=== PATIENT | female | born 1975 | race African-American/Black ===

== ENCOUNTER 2018-02-02 22:44 | Emergency (ER) | payer BC ==
[2018-02-02] MEDS ORDERED: KETOROLAC 30 MG/ML INJ ONE (23:52)
--- NOTE | 2018-02-03 00:12 | EDPHYS ---
Physician Documentation [facility] Name: Alix Villasenor Age: 42 yrs Sex: Female : 1975 Arrival Date: 02/02/2018 Time: 22:45 Bed 6 Private MD: ED Physician Basilio Mcdonald HPI: 02/02 23:57 This 42 yrs old Black Female presents to ER via Wheelchair with complaints of Knee Pain snw - Swelling. 23:57 The patient presents with pain, swelling, tenderness. The complaints affect the medial snw aspect of right knee. Context: resulted from an unknown cause, the patient can fully bear weight, the patient is able to ambulate, Problem is a result from a previous injury: to foot. Onset: The symptoms/episode began/occurred 1 week(s) ago, and became persistent. Associated signs and symptoms: Pertinent positives: swelling, tenderness. Treatment prior to arrival includes: loyda wrap. Severity of symptoms: At their worst the symptoms were moderate. The patient has not experienced similar symptoms in the past. It is unknown whether or not the patient has recently seen a physician. 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 - Social history:: Smoking status: Patient/guardian denies using tobacco. ROS: 23:57 Constitutional: Negative for fever, chills, and weight loss, Eyes: Negative for injury, snw pain, redness, and discharge, ENT: Negative for injury, pain, and discharge, Neck: Negative for injury, pain, and swelling, Cardiovascular: Negative for chest pain, palpitations, and edema, Respiratory: Negative for shortness of breath, cough, wheezing, and pleuritic chest pain, Abdomen/GI: Negative for abdominal pain, nausea, vomiting, diarrhea, and constipation, Back: Negative for injury and pain, : Negative for injury, bleeding, discharge, and swelling, Skin: Negative for injury, rash, and discoloration, Neuro: Negative for headache, weakness, numbness, tingling, and seizure. 23:57 MS/extremity: Positive for decreased range of motion, swelling, tenderness, of the medial aspect of right knee. Exam: 23:56 Constitutional: This is a well developed, well nourished patient who is awake, alert, snw and in no acute distress. Head/Face: Normocephalic, atraumatic. Eyes: Pupils equal round and reactive to light, extra-ocular motions intact. Lids and lashes normal. Conjunctiva and sclera are non-icteric and not injected. Cornea within normal limits. Periorbital areas with no swelling, redness, or edema. ENT: Nares patent. No nasal discharge, no septal abnormalities noted. Tympanic membranes are normal and external auditory canals are clear. Oropharynx with no redness, swelling, or masses, exudates, or evidence of obstruction, uvula midline. Mucous membranes moist. Neck: Trachea midline, no thyromegaly or masses palpated, and no cervical lymphadenopathy. Supple, full range of motion without nuchal rigidity, or vertebral point tenderness. No Meningismus. Chest/axilla: Normal chest wall appearance and motion. Nontender with no deformity. No lesions are appreciated. Cardiovascular: Regular rate and rhythm with a normal S1 and S2. No gallops, murmurs, or rubs. Normal PMI, no JVD. No pulse deficits. Respiratory: Lungs have equal breath sounds bilaterally, clear to auscultation and percussion. No rales, rhonchi or wheezes noted. No increased work of breathing, no retractions or nasal flaring. Abdomen/GI: Soft, non-tender, with normal bowel sounds. No distension or tympany. No guarding or rebound. No evidence of tenderness throughout. Back: No spinal tenderness. No costovertebral tenderness. Full range of motion. Skin: Warm, dry with normal turgor. Normal color with no rashes, no lesions, and no evidence of cellulitis. Neuro: Awake and alert, GCS 15, oriented to person, place, time, and situation. Cranial nerves II-XII grossly intact. Motor strength 5/5 in all extremities. Sensory grossly intact. Cerebellar exam normal. Normal gait. Psych: Awake, alert, with orientation to person, place and time. Behavior, mood, and affect are within normal limits. 23:56 Musculoskeletal/extremity: Extremities: grossly normal except: noted in the right knee: pain, swelling, tenderness, ROM: limited passive range of motion due to pain, Circulation is intact in all extremities. Sensation intact. DVT Exam: swelling, tenderness, of the right leg, of the medial aspect of right knee. Vital Signs: 23:01 BP 131 / 89; Pulse 78; Resp 16; Temp 98.2(O); Pulse Ox 100% on R/A; Weight 77.11 kg; lp1 Height 5 ft. 6 in. (167.64 cm); Pain 7/10; 02/03 00:15 BP 126 / 83; Pulse 75; Resp 16; Pulse Ox 100% on R/A; Pain 4/10; bs1 02/02 23:01 Body Mass Index 27.44 (77.11 kg, 167.64 cm) lp1 MDM: 02/02 23:00 Patient medically screened. snw 02/03 00:13 Data reviewed: vital signs, nurses notes. Data interpreted: Pulse oximetry: on room air snw is 100 %. Interpretation: normal. Counseling: I had a detailed discussion with the patient and/or guardian regarding: the historical points, exam findings, and any diagnostic results supporting the discharge/admit diagnosis, the presence of at least one elevated blood pressure reading (>120/80) during this emergency department visit, radiology results, the need for outpatient follow up, to return to the emergency department if symptoms worsen or persist or if there are any questions or concerns that arise at home. Special discussion: I have referred the patient to see his PCP for further evaluation of high blood pressure. Based on the history and exam findings, there is no indication for further emergent testing or inpatient evaluation. I discussed with the patient/guardian the need to see the orthopedic surgeon for further evaluation of the symptoms. I discussed with the patient/guardian the need to see the primary care provider for further evaluation of the symptoms. 02/02 23:22 Order name: Knee Right 3 View XRAY snw 02/02 23:22 Order name: US Extremity Venous Uni Ltd snw Administered Medications: 02/02 23:40 Drug: TORadol 60 mg Route: IM; Site: right deltoid; bs1 02/03 00:30 Follow up: Response: No adverse reaction bs1 Disposition: 02/03/18 00:11 Discharged to Home. Impression: Pain in right knee, Synovial cyst of popliteal space [Hernandez], right knee. - Condition is Stable. - Discharge Instructions: Arthralgia, Hernandez Cyst, Knee Pain, Cryotherapy, Heat Therapy. - Prescriptions for Diclofenac Sodium 75 mg Oral Tablet Sustained Release - take 1 tablet by ORAL route 2 times per day; 30 tablet. - Work release form, Medication Reconciliation Form, Thank You Letter, Antibiotic Education, Prescription Opioid Use form. - Follow up: Private Physician; When: 2 - 3 days; Reason: Recheck today's complaints, Continuance of care, Re-evaluation by your physician. Follow up: Emergency Department; When: As needed; Reason: Worsening of condition. Follow up: Tony Santo MD; When: 1 week; Reason: Recheck today's complaints, Continuance of care. Addendum: 02/07/2018 08:33 Co-signature as Attending Physician, Basilio Mcdonald MD. g s Signatures: Dispatcher [employer] EDWA Greer Rosas, ARCHERY EQUIPMENT REPAIRER-C ARCHERY EQUIPMENT REPAIRER-Csnw Sandy Moreno, RN RN lp1 Basilio Mcdonald MD MD Anika Call, RN RN bs1
--- NOTE | 2018-02-03 00:12 | ER ---
Nurse's Notes [facility] Name: Alix Villasenor Age: 42 yrs Sex: Female : 1975 Arrival Date: 02/02/2018 Time: 22:45 Bed 6 Private MD: Diagnosis: Pain in right knee;Synovial cyst of popliteal space [Hernandez], right knee Presentation: 02/02 22:58 Presenting complaint: Patient states: Right knee swelling that began 1 week ago, lp1 increased swelling today;. Transition of care: patient was not received from another setting of care. Onset of symptoms was February 02, 2018. Care prior to arrival: None. 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 - Social history:: Smoking status: Patient/guardian denies using tobacco. Screenin:03 Abuse screen: Denies threats or abuse. Denies injuries from another. Nutritional lp1 screening: No deficits noted. Tuberculosis screening: No symptoms or risk factors identified. Fall Risk None identified. Assessment: 23:10 General: Appears in no apparent distress. uncomfortable, Behavior is calm, cooperative, bs1 appropriate for age. Pain: Complains of pain in right knee Pain does not radiate. Pain currently is 7 out of 10 on a pain scale. Quality of pain is described as aching. Neuro: Level of Consciousness is awake, alert, obeys commands, Oriented to person, place, time, situation, Appropriate for age Finance Specialist are equal bilaterally Moves all extremities. Gait is steady, Speech is normal. Cardiovascular: Denies chest pain, palpitations, shortness of breath, Heart tones S1 S2 present Capillary refill < 3 seconds Patient's skin is warm and dry. Respiratory: Airway is patent Trachea midline Respiratory effort is even, unlabored, Respiratory pattern is regular, symmetrical, Breath sounds are clear bilaterally. GI: No deficits noted. No signs and/or symptoms were reported involving the gastrointestinal system. : No deficits noted. No signs and/or symptoms were reported regarding the genitourinary system. EENT: No deficits noted. No signs and/or symptoms were reported regarding the EENT system. Derm: No deficits noted. No signs and/or symptoms reported regarding the dermatologic system. Musculoskeletal: Circulation, motion, and sensation intact. Capillary refill < 3 seconds, Range of motion: limited in right knee/leg Swelling present in right leg/knee. 02/03 00:10 Reassessment: Patient appears in no apparent distress at this time. No changes from bs1 previously documented assessment. Patient and/or family updated on plan of care and expected duration. Pain level reassessed. Patient is alert, oriented x 3, equal unlabored respirations, skin warm/dry/pink. Vital Signs: 02/02 23:01 BP 131 / 89; Pulse 78; Resp 16; Temp 98.2(O); Pulse Ox 100% on R/A; Weight 77.11 kg; lp1 Height 5 ft. 6 in. (167.64 cm); Pain 7/10; 02/03 00:15 BP 126 / 83; Pulse 75; Resp 16; Pulse Ox 100% on R/A; Pain 4/10; bs1 04 23:01 Body Mass Index 27.44 (77.11 kg, 167.64 cm) lp1 ED Course: 02/02 22:45 Patient arrived in ED. am2 22:58 Triage completed. lp1 23:00 Greer Rosas FNP-C [facility]. snw 23:00 Basilio Mcdonald MD is Attending Physician. snw 23:01 Anika Call RN is Primary Nurse. bs1 23:01 Arm band placed on left wrist. lp1 23:14 Patient has correct armband on for positive identification. Bed in low position. Call bs1 light in reach. Side rails up X 1. Pulse ox on. NIBP on. Warm blanket given. 23:37 X-ray completed. Portable x-ray completed in exam room. Patient tolerated procedure kw well. 23:38 Knee Right 3 View XRAY In Process Unspecified. EDMS 02/03 00:10 Ultrasound completed. Patient tolerated well. cy 00:11 Tony Santo MD is Referral Physician. snw 00:15 US Extremity Venous Uni Ltd In Process Unspecified. EDMS 00:28 No provider procedures requiring assistance completed. Patient did not have IV access bs1 during this emergency room visit. Administered Medications: 02/02 23:40 Drug: TORadol 60 mg Route: IM; Site: right deltoid; bs1 02/03 00:30 Follow up: Response: No adverse reaction bs1 Outcome: 00:11 Discharge ordered by . snw 00:29 Discharged to home ambulatory. bs1 00:29 Condition: stable 00:29 Discharge instructions given to patient, Instructed on discharge instructions, follow up and referral plans. medication usage, Demonstrated understanding of instructions, follow-up care, medications, Prescriptions given X 1. 00:30 Patient left the ED. bs1 Signatures: Dispatcher [employer] EDMS Greer Rosas, DIRECTOR OF MEDICAL EDUCATION-C DIRECTOR OF MEDICAL EDUCATION-Csnw Alina Jimenez Laura, RN RN lp1 Ashanti Hardy amAnika Crooks RN RN bs1 Ciro Bob
--- NOTE | 2018-02-03 08:43 | RAD REPORT ---
EXAM DESCRIPTION: RAD - Knee Right 3 View - 02/02/2018 11:41 pm CLINICAL HISTORY: Knee pain and swelling. COMPARISON: None. FINDINGS: Mild narrowing of the medial joint compartment is noted. No fracture, dislocation or aggre ssive marrow pattern. No significant suprapatellar joint effusion seen.
--- NOTE | 2018-02-03 08:44 | RAD REPORT ---
EXAM DESCRIPTION: VAS - Extremity Venous Uni Ltd - 02/03/2018 12:14 am CLINICAL HISTORY: Leg swelling and edema. COMPARISON: None. FINDINGS: Right lower extremity venous system was interrogated with Doppler technique. Normal flow, compressibility and augmentation was noted. There is no DVT present.2 x 2 cm Hernandez's cyst in the popl iteal region noted. IMPRESSION: No evidence of right lower extremity deep venous thrombosis.
[2018-02-03] MEDS ORDERED: NITROGLYCERIN 0.4 MG/TAB SL PRN (16:47)
[2018-02-03] MEDS ORDERED: ACETAMINOPHEN 325 MG TABLET PO PRN (16:47)
[2018-02-03] MEDS ORDERED: NA CHLORIDE 0.9% 1,000 ML IV SCH (17:00)
== END 2018-02-03 00:30 | disposition home or self-care (01) ==
LOC: ER 22:44
DX: M71.21 Synovial cyst of popliteal space [Baker], right knee (principal); J45.909 Unspecified asthma, uncomplicated; Z88.8 Allergy status to other drugs, medicaments and biological substances
CPT/HCPCS: 93971; 96372; 99284

== ENCOUNTER 2019-10-10 07:04 | Emergency (ER) | payer BC ==
--- OUTSIDE RECORDS SUMMARY | 2019-10-10 07:06 | XMS REPORT ---
:1975 [facility] Address [address] [place] [address] Care Team Providers Name Role Phone Unavailable Unavailable Unavailable Payers Payer Name Policy Type Policy Number Effective Date Expiration Date Problems This patient has no known problems. Allergies, Adverse Reactions, Alerts Allergy Allergy Status Severity Reaction(s) Onset Inactive Treating Comments Name Type Date Date Clinician iodine DA Active SV 2019-07 00:00:0 0 No Known DA Active U 2016-12 -24 00:00:0 0 Medications This patient has no known medications. Results Test Description Test Time Test Comments Text Results Atomic Results Result Comments UA RFLX MICR CULT IF INDICATED 2019-08-14 20:30:00 Test Item Value Reference Range Comments UA COLOR (test code=COLU) YELLOW discript YEL/STRAW UA APPEARANCE (test code=APPU) CLEAR discript CLEAR UA GLUCOSE DIPSTICK (test code=DGLUU) NEGATIVE mg/dL NEG UA BILIRUBIN DIPSTICK (test code=BILU) NEGATIVE mg/dL NEG UA KETONE DIPSTICK (test code=KETU) NEGATIVE mg/dL NEG UA SPECIFIC GRAVITY (test code=SGU) 1.015 SG 1.005-1.030 UA BLOOD DIPSTICK (test code=BRI) NEGATIVE mg/DL NEG UA PH DIPSTICK (test code=EWELINA) 7.0 pH UNITS 5.0-7.0 UA PROTEIN DIPSTICK (test code=PROU) TRACE mg/dL NEG UA UROBILINIOGEN DIPSTICK (test code=URO) 4.0 mg/dL <2.0 UA NITRITE DIPSTICK (test code=EVA) NEGATIVE SCREEN NEG UA LEUKOCYTE ESTERASE DIPSTICK (test code=LEUU) NEGATIVE Leuk/mcL NEGATIVE UA CULTURE NEEDED? (test code=UACULT) NO, WBC<10 Criteria Culture CHK SOURCE OF URINE: CLEAN CATCHIndication for culture: Suprapubic Pain Dysuria/FrequencyUR HCG [id number] 20:30:00 Test Item Value Reference Range Comments UR HCG QUAL (test code=HCGQLU) NEGATIVE NEGATIVE SOURCE OF URINE: CLEAN CATCHIndication for culture: Suprapubic Pain Dysuria/FrequencyUA RFLX MICR CULT IF [id number] 20:29:00 Test Item Value Reference Range Comments UA COLOR (test code=COLU) YELLOW discript YEL/STRAW UA APPEARANCE (test code=APPU) CLEAR discript CLEAR UA GLUCOSE DIPSTICK (test code=DGLUU) NEGATIVE mg/dL NEG UA BILIRUBIN DIPSTICK (test code=BILU) NEGATIVE mg/dL NEG UA KETONE DIPSTICK (test code=KETU) NEGATIVE mg/dL NEG UA SPECIFIC GRAVITY (test code=SGU) 1.015 SG 1.005-1.030 UA BLOOD DIPSTICK (test code=BRI) NEGATIVE mg/DL NEG UA PH DIPSTICK (test code=EWELINA) 7.0 pH UNITS 5.0-7.0 UA PROTEIN DIPSTICK (test code=PROU) TRACE mg/dL NEG UA UROBILINIOGEN DIPSTICK (test code=URO) 4.0 mg/dL <2.0 UA NITRITE DIPSTICK (test code=EVA) NEGATIVE SCREEN NEG UA LEUKOCYTE ESTERASE DIPSTICK (test NEGATIVE Leuk/mcL NEGATIVE code=LEUU) UA CULTURE NEEDED? (test code=UACULT) Criteria Culture CHK SOURCE OF URINE: CLEAN CATCHIndication for culture: Suprapubic Pain Dysuria/FrequencyUR HCG [id number] 20:29:00 Test Item Value Reference Range Comments UR HCG QUAL (test code=HCGQLU) NEGATIVE SOURCE OF URINE: CLEAN CATCHIndication for culture: Suprapubic Pain Dysuria/Frequency
[2019-10-10 07:58] LABS: Urine Blood NEGATIVE (NEG); Urine Glucose NEGATIVE (NEG); Urine Protein NEGATIVE (NEG); Urine Specific Gravity 1.025 (1.005-1.030); Urine pH 5.5 (5.0-7.0)
--- NOTE | 2019-10-10 08:15 | RAD REPORT ---
EXAM DESCRIPTION: RAD - Lumbar Spine 3 Views - 10/10/2019 8:09 am CLINICAL HISTORY: Back pain FINDINGS: The alignment of the lumbar spine is satisfactory. No fracture or dislocation is seen. Minimal spondylosis involves the lumbar spine
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
[2019-10-10 09:23] VITALS: BP 122/76; TEMP 97.2; O2SAT 100
== END 2019-10-10 09:15 | disposition home or self-care (01) ==
LOC: ER 07:04
DX: S13.4XXA Sprain of ligaments of cervical spine, initial encounter (principal); M54.5 Low back pain; V49.40XA Driver injured in collision with unspecified motor vehicles in traffic accident, initial encounter; Z91.048 Other nonmedicinal substance allergy status
CPT/HCPCS: 72100; 81003; 81025; 99282

== ENCOUNTER 2021-09-17 14:00 | Emergency (ER) | payer BC ==
--- OUTSIDE RECORDS SUMMARY | 2021-09-17 14:03 | XMS REPORT | Continuity of Care Document ---
:1975 Author Organization [facility] t Address [address] [place] [address] Care Team Providers Name Role Phone Macy Mckoy Attending Clinician Unavailable ROXY Attending Clinician Unavailable Ana Cristina Martinez Admitting Clinician Unavailable Physician, Primary or Family Admitting Clinician Unavailabl e Payers Payer Name Policy Type Policy Number Effective Date Expiration Date S ource Problems This patient has no known problems. Allergies, Adverse Reactions, Alerts Allergy Allergy Status Severity Reaction(s) Onset Inactive Treating Comm ents Source Name Type Date Date Clinician No Known DA Active U [facility]ie 7-25 [place] [facility] 00:[facility]: d 00 [facility] No Known DA Active U [facility] Allergie 7 [place] [facility] 00:00: d 00 [facility] iodine DA Active SV 2018- [facility] 0-15 Clear 00:00: Xiao 00 [facility] [place] iodine DA Active SV THROAT 2018-10 [facility] CLOSING 0-15 Clear 00:00: Xiao 00 [facility] No Known DA Active U 2016-0 [facility] Allergie 3-24 [place] [facility] 00:00: d 00 [facility] Medications This patient has no known medications. Procedures This patient has no known procedures. Encounters Start End Encounter Admission Attending Care Care Encounter Source Date/Time Date/Time Type Type Clinicians Facility Department ID 2020-09-04 Inpatient [facility] ANDREW [id number] [facility] 2021-05-24 2021-05-24 Emergency EM Leelee [facility] ANDREW [id number] [facility] 11:14:00 12:37:00 Irene 0725 [facility] 2021-01-30 2021-01-30 Outpatient DEBORAH RAMSEY [facility] [place] [id number] [facility] 12:00:00 12:00:00 LAURO 0402 [facility] 2020-09-04 2020-09-04 Outpatient Leelee [facility] LABO [id number] [facility] 23:54:00 23:54:00 Irene 1105 [facility] Results Test Description Test Time Test Comments Results Result Comments Source UA RFLX MICR CULT IF INDICATED 2021-05-24 12:28:00 Test Item Value Reference Range Interpretation Comme nts UA COLOR (test code = COLU) YELLOW discript YEL/STRAW UA APPEARANCE (test code = APPU) HAZY discript CLEAR A UA GLUCOSE DIPSTICK (test code = DGLUU) NEGATIVE mg/dL NEG UA BILIRUBIN DIPSTICK (test code = BILU) NEGATIVE mg/dL NEG UA KETONE DIPSTICK (test code = KETU) NEGATIVE mg/dL NEG UA SPECIFIC GRAVITY (test code = SGU) 1.015 SG 1.005-1.030 UA BLOOD DIPSTICK (test code = BRI) NEGATIVE mg/DL NEG UA PH DIPSTICK (test code = EWELINA) 7.0 pH UNITS 5.0-7.0 UA PROTEIN DIPSTICK (test code = PROU) NEGATIVE mg/dL NEG UA UROBILINIOGEN DIPSTICK (test code = URO) 0.2 mg/dL <2.0 UA NITRITE DIPSTICK (test code = EVA) NEGATIVE SCREEN NEG UA LEUKOCYTE ESTERASE DIPSTICK (test code = LEUU) NEGATIVE Leuk/mcL NEGATIVE UA CULTURE NEEDED? (test code = UACULT) NO, WBC<10 Criteria Culture CHK Indication for culture: Dysuria/FrequencyUA RFLX MICR CULT IF INDICATED 2021-05-24 12:28:00 Test Item Value Reference Range Interpretation Comments UA COLOR (test code = COLU) YELLOW discript YEL/STRAW UA APPEARANCE (test code = HAZY discript CLEAR A APPU) UA GLUCOSE DIPSTICK (test NEGATIVE mg/dL NEG code = DGLUU) UA BILIRUBIN DIPSTICK (test NEGATIVE mg/dL NEG code = BILU) UA KETONE DIPSTICK (test NEGATIVE mg/dL NEG code = KETU) UA SPECIFIC GRAVITY (test 1.015 SG 1.005-1.030 code = SGU) UA BLOOD DIPSTICK (test NEGATIVE mg/DL NEG code = BRI) UA PH DIPSTICK (test code = 7.0 pH UNITS 5.0-7.0 EWELINA) UA PROTEIN DIPSTICK (test NEGATIVE mg/dL NEG code = PROU) UA UROBILINIOGEN DIPSTICK 0.2 mg/dL <2.0 (test code = URO) UA NITRITE DIPSTICK (test NEGATIVE SCREEN NEG code = EVA) UA LEUKOCYTE ESTERASE NEGATIVE Leuk/mcL NEGATIVE DIPSTICK (test code = LEUU) UA CULTURE NEEDED? (test Criteria Culture CHK code = UACULT) Indication for culture: Dysuria/Frequency- CT NECK W/O [id number] [facility]:02[facility] 1975 Sex: F Name: JEAN MCHUGH [facility] : 04/[birth year] Age/S: 45 / F [id number] [address] Unit #: [id number] Loc: [place] [address] Phys: Irene Mckoy MD Acct: [id number] Dis Date: Status: WALTER ROSSYMIRNA #: [phone] Exam Date: 09/05/2020 0048 FAX #: Re ason: neck mass; eval for abscess EXAMS: CPT: [id number] CT NECK W/O CONTRAST 30915 EXAM: - CT NECK W/O CONTRAST LOCATION: H61 CLINICAL HISTORY/INDICATION: Swelling in the left side of the neck. Neck mass; eval for abscess COMPARISON: None TECHNIQUE: Axial images were obtained from the thoracic inlet to the skullbase without IV contrast administration. Coronal and sagittal images were reconstructed from the axial data. This examination was performed according to our departmental dose optimization program, which includes automated exposure control, adjustment of the mA and/or kV according to patient size, and/or use of iterative reconstruction technique. FINDINGS: LIMITATION: Lack of intravenous contrast limits evaluation of the soft tissues and vessels. PARTIALLY IMAGED INTRACRANIAL STRUCTURES: No acute abnormality. MASTOID AIR CELLS: Clear. ORBITS: Unremarkable. PARANASAL SINUSES: Clear. AERODIGESTIVE TRACT: Limited evaluation without contrast. However, no gross masses demonstrated. The nasopharyngeal, oropharyngeal and hypopharyngeal airway are patent. LARYNX:Unremarkable. LYMPH NODES: No enlargement by CT criteria. SUBMANDIBULAR GLANDS: Symmetric in appearance without mass. PAROTID GLANDS: Symmetric in appearance without mass. THYROID GLAND: Homogeneous, normal in size. External soft tissue: There is moderate skin thickening and PAGE 1 Signed Report (CONTINUED) Name: JEAN MCHUGH [facility] : 1975 Age/S: 45 / F [id number] Unit #: [id number] Loc: [place] [address] Phys: Irene Mckoy MD Acct: [id number] Dis Date: Status: REG PHONE #: [phone] Exam Date: 09/05/2020 004 FAX #: Reason: neck mass; eval for abscess EXAMS: CPT: [id number] CT NECK W/O CONTRAST 54873 <Continued> subcutaneous edema/fat stranding in the left lower neck at the level of the thyroid cartilage. This is compatible with cellulitis. There isthickening of the platysma muscle with thin nonorganized fluid present deep to the muscle, measuring up to 8 mm in thickness. No organized fluid collection is seen to suggest a drainable abscess. No retropharyngeal fluid collection. UPPER CHEST: Lung apices are clear. BONES: Regional osseous structures are intact. IMPRESSION: 1. Edema and fat stranding in the left lateral neck centered at the level of the thyr oid cartilage is likely due to cellulitis. There is fascial thickening of the platysma muscle with thin nonorganized fluid deep to the muscle. No organized fluid collection is seen tosuggest a drainable abscess. No retropharyngeal fluid collection. 2. No mass or adenopathy. at 0102 Reported and signed by: Alonso Bernal M.D. CC: Lizbeth Martinez MD; Irene Mckoy MD Technologist:RT Camille(R) CTDI: DLP: Trnscb Date/Time: 09/05/2020 (101) [email or web address] Orig Print D/T: S: 09/05/2020 (104) PAGE2 Signed ReportLACTIC [id number] 00:21:00 Test Item Value Reference Range Interpretation Comments LACTIC ACID (test code = LACT) 2.8 mmol/L 0.4-2.0 H HCG [id number] 00:18:00 Test Item Value Reference Range Interpretation Comments HCG SERUM (test < 1 mi-IU/ML 0-6 N 0 - 6 NOT code = HCG) > 6 SUGGESTIVE OF EARLY RISES TWO FOLD EVERY 2 DAYS; SUGGES T RECONFIRMING AF TER 2 DAYS. 150,000-200,[address] TRIMESTER 10,00 0 - 50,000 2ND & 3RD TRIMESTER COMPREHENSIVE METABOLIC [id number] 00:11:00 Test Item Value Reference Range Interpretation Comments SODIUM (test code = NA) 139 mmol/L 134-147 N POTASSIUM (test code = 3.4 mmol/L 3.4-5.0 N K) CHLORIDE (test code = 106 mmol/L 100-108 N CL) CARBON DIOXIDE (test 29 mmol/L 21-32 N code = CO2) ANION GAP (test code = 4.0 GAP calc 4.0-15.0 N GAP) GLUCOSE (test code = 87 MG/DL 70-110 N GLU) BLOOD UREA NITROGEN 11 MG/DL 7-18 N (test code = BUN) GLOMERULAR FILTRATION >=60 max estimate >60 RATE (test code = GFR) estGFR CREATININE (test code = 0.7 MG/DL 0.6-1.0 N CREAT) TOTAL PROTEIN (test code 8.0 G/DL 6.4-8.2 N = PROT) ALBUMIN (test code = 3.6 G/DL 3.4-5.0 N ALB) GLOBULIN (test code = 4.4 GM/dL GLOB) ALBUMIN/GLOBULIN RATIO 0.8 RATIO 1.2-2.2 L (test code = A/G) CALCIUM (test code = CA) 8.8 MG/DL 8.5-10.1 N BILIRUBIN TOTAL (test 0.20 MG/DL 0.2-1.2 N code = BILT) SGOT/AST (test code = 8 Unit/L 15-37 L AST) SGPT/ALT (test code = 11 Unit/L 12-78 L ALT) ALKALINE PHOSPHATASE 82 Unit/L 45-117 N TOTAL (test code = ALKP) CBC W/AUTO [id number] 23:52:00 Test Item Value Reference Range Interpretation Comments WHITE BLOOD CELL (test code = 8.5 K/mm3 3.5-11.0 N WBC) RED BLOOD CELL (test code = 3.96 M/mm3 4.70-6.10 L RBC) HEMOGLOBIN (test code = HGB) 11.1 G/DL 10.4-14.9 N HEMATOCRIT (test code = HCT) 35.3 % 31.5-44.1 N MEAN CELL VOLUME (test code = 89.1 Fl 84.5-98.6 N MCV) MEAN CELL HGB (test code = MCH) 28.0 pg 27.0-34.2 N MEAN CELL HGB CONCETRATION 31.4 G/DL 31.5-34.0 L (test code = MCHC) RED CELL DISTRIBUTION WIDTH 13.1 SD 11.5-14.5 N (test code = RDW) PLATELET COUNT (test code = 366 K/mm3 150-450 N PLT) MEAN PLATELET VOLUME (test code 8.70 fL 7.0-10.5 N = MPV) NEUTROPHIL % (test code = NT%) 59.5 % 40-76 N IMMATURE GRANULOCYTE % (test 0.2 % 0.0-5.0 N code = IG%) LYMPHOCYTE % (test code = LY%) 28.5 % 20.5-51.1 N MONOCYTE % (test code = MO%) 6.2 % 1.7-9.3 N EOSINOPHIL % (test code = EO%) 5.2 % 0.0-6.0 N BASOPHIL % (test code = BA%) 0.4 % 0.0-2.0 N NUCLEATED RBC % (test code = 0.0 /100WBC% 0.0-1.0 N NRBC%) NEUTROPHIL # (test code = NT#) 5.1 K/mm3 1.8-7.6 N IMMATURE GRANULOCYTE # (test 0.02 x10 3/uL 0.00-0.03 N code = IG#) LYMPHOCYTE # (test code = LY#) 2.4 K/mm3 0.6-3.2 N MONOCYTE # (test code = MO#) 0.5 K/mm3 0.3-1.1 N EOSINOPHIL # (test code = EO#) 0.4 K/mm3 0.0-0.4 N BASOPHIL # (test code = BA#) 0.0 K/mm3 0.0-0.1 N NUCLEATED RBC # (test code = 0.0 K/mm3 0.0-0.1 N NRBC#) MANUAL DIFF REQUIRED (test code NO DIFF/SCN CRITERIA = MDIFF) UA RFLX MICR CULT IF [id number] 20:30:00 Test Item Value Reference Range Interpretation Comments UA COLOR (test code = YELLOW discript YEL/STRAW COLU) UA APPEARANCE (test code CLEAR discript CLEAR = APPU) UA GLUCOSE DIPSTICK (test NEGATIVE mg/dL NEG code = DGLUU) UA BILIRUBIN DIPSTICK NEGATIVE mg/dL NEG (test code = BILU) UA KETONE DIPSTICK (test NEGATIVE mg/dL NEG code = KETU) UA SPECIFIC GRAVITY (test 1.015 SG 1.005-1.030 code = SGU) UA BLOOD DIPSTICK (test NEGATIVE mg/DL NEG code = BRI) UA PH DIPSTICK (test code 7.0 pH UNITS 5.0-7.0 = EWELINA) UA PROTEIN DIPSTICK (test TRACE mg/dL NEG A code = PROU) UA UROBILINIOGEN DIPSTICK 4.0 mg/dL <2.0 A (test code = URO) UA NITRITE DIPSTICK (test NEGATIVE SCREEN NEG code = EVA) UA LEUKOCYTE ESTERASE NEGATIVE Leuk/mcL NEGATIVE DIPSTICK (test code = LEUU) UA CULTURE NEEDED? (test NO, WBC<10 Criteria Culture CHK code = UACULT) SOURCE OF URINE: CLEAN CATCHIndication for culture: Suprapubic Pain Dysuria/FrequencyUR HCG [id number] 20:30:00 Test Item Value Reference Range Interpretation Comments UR HCG QUAL (test code = HCGQLU) NEGATIVE NEGATIVE SOURCE OF URINE: CLEAN CATCHIndication for culture: Suprapubic Pain Dysuria/FrequencyUA RFLX MICR CULT IF [id number] 20:29:00 Test Item Value Reference Range Interpretation Comments UA COLOR (test code = COLU) YELLOW discript YEL/STRAW UA APPEARANCE (test code = CLEAR discript CLEAR APPU) UA GLUCOSE DIPSTICK (test NEGATIVE mg/dL NEG code = DGLUU) UA BILIRUBIN DIPSTICK (test NEGATIVE mg/dL NEG code = BILU) UA KETONE DIPSTICK (test NEGATIVE mg/dL NEG code = KETU) UA SPECIFIC GRAVITY (test 1.015 SG 1.005-1.030 code = SGU) UA BLOOD DIPSTICK (test NEGATIVE mg/DL NEG code = BRI) UA PH DIPSTICK (test code = 7.0 pH UNITS 5.0-7.0 EWELINA) UA PROTEIN DIPSTICK (test TRACE mg/dL NEG A code = PROU) UA UROBILINIOGEN DIPSTICK 4.0 mg/dL <2.0 A (test code = URO) UA NITRITE DIPSTICK (test NEGATIVE SCREEN NEG code = EVA) UA LEUKOCYTE ESTERASE NEGATIVE Leuk/mcL NEGATIVE DIPSTICK (test code = LEUU) UA CULTURE NEEDED? (test Criteria Culture CHK code = UACULT) SOURCE OF URINE: CLEAN CATCHIndication for culture: Suprapubic Pain Dysuria/FrequencyUR HCG [id number] 20:29:00 Test Item Value Reference Range Interpretation Comments UR HCG QUAL (test code = HCGQLU) NEGATIVE SOURCE OF URINE: CLEAN CATCHIndication for culture: Suprapubic Pain Dysuria/Frequency
[2021-09-17] MEDS ORDERED: IPRATROPIUM BROM 0.5MG/2.5ML ONE (15:39)
[2021-09-17] MEDS ORDERED: ALBUTEROL 2.5 MG/3 ML NEB SOL ONE (15:39)
[2021-09-17 17:12] LABS: SARS-COV-2 RT PCR NEGATIVE (NEGATIVE)
--- NOTE | 2021-09-17 17:20 | EDPHYS ---
Physician Documentation [facility] Name: Alix Villasenor Age: 46 yrs Sex: Female : 1975 Arrival Date: 09/17/2021 Time: 14:02 Bed 20 Private MD: ALEISHA SOLARES ED Physician Ruiz Rocha HPI: 09/17 15:30 This 46 yrs old Black Female presents to ER via Ambulatory with complaints of Shortness cp Of Breath, Dizziness. 15:30 The patient has shortness of breath with light activity. cp 15:30 Onset: The symptoms/episode began/occurred 3 day(s) ago. cp 15:30 Associated signs and symptoms: Pertinent positives: nasal drainage, sneezing, headache, cp Pertinent negatives: chest pain, productive cough, diaphoresis, fever, vomiting. Severity of symptoms: in the emergency department the symptoms are unchanged despite home interventions. 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 - Social history:: Smoking status: Patient denies any tobacco usage or history of. ROS: 15:35 Constitutional: Negative for body aches, chills, fever, poor PO intake. cp 15:35 Eyes: Negative for injury, pain, redness, and discharge. cp 15:35 ENT: Positive for rhinorrhea, sore throat, Negative for drainage from ear(s), ear pain. 15:35 Cardiovascular: Negative for chest pain, edema, palpitations. 15:35 Respiratory: Positive for shortness of breath, Negative for wheezing. 15:35 Abdomen/GI: Negative for abdominal pain, nausea, vomiting, and diarrhea. 15:35 Neuro: Positive for dizziness, Negative for altered mental status, headache, weakness. 15:35 All other systems are negative. Exam: 15:40 Constitutional: The patient appears in no acute distress, alert, awake, comfortable, cp non-toxic, well developed, well nourished. 15:40 Head/face: Sinus tenderness, that is mild, is located over the right frontal sinus and cp left frontal sinus. 15:40 Eyes: Periorbital structures: appear normal, Pupils: equal, round, and reactive to light and accomodation, Extraocular movements: intact throughout, Conjunctiva: normal, no exudate, no injection, Lids and lashes: appear normal, bilaterally. 15:40 ENT: External ear(s): are unremarkable, Ear canal(s): are normal, clear, TM's: dullness, bilaterally, Nose: is normal, Mouth: Lips: moist, Oral mucosa: pink and intact, moist, Posterior pharynx: Airway: no evidence of obstruction, patent, Tonsils: are normal in appearance, erythema, is not appreciated, exudate, is not appreciated. 15:40 Neck: ROM/movement: is normal, is supple, without pain, no range of motions limitations. 15:40 Chest/axilla: Inspection: normal. 15:40 Cardiovascular: Rate: normal, Rhythm: regular. 15:40 Respiratory: the patient does not display signs of respiratory distress, Respirations: normal, no use of accessory muscles, no retractions, labored breathing, is not present, Breath sounds: are clear throughout, no decreased breath sounds, no stridor, no wheezing. 15:40 Abdomen/GI: Inspection: abdomen appears normal, Bowel sounds: active, all quadrants, Palpation: abdomen is soft and non-tender, in all quadrants. Vital Signs: 14:30 BP 127 / 86; Pulse 86; Resp 15; Temp 97.2(TE); Pulse Ox 100% on R/A; Weight 68.04 kg; ss Height 5 ft. 6 in. (167.64 cm); Pain 0/10; 15:30 BP 135 / 93; Pulse 75; Resp 18; Temp 97.6; Pulse Ox 100% ; sl2 16:15 BP 135 / 73; Pulse 78; Resp 18; Pulse Ox 100% ; sl2 16:48 BP 114 / 66; Pulse 90; Resp 18; Temp 97.8; Pulse Ox 100% ; sl2 17:30 BP 122 / 98; Pulse 85; Resp 18; Temp 97.8; Pulse Ox 100% ; sl2 14:30 Body Mass Index 24.21 (68.04 kg, 167.64 cm) ss MDM: 15:16 Patient medically screened. cp 16:00 Differential diagnosis: Anemia asthma, pneumonia, pulmonary edema, Pulmonary Embolism cp reactive airway disease. 17:20 Data reviewed: vital signs, nurses notes, lab test result(s). cp 17:20 Counseling: I had a detailed discussion with the patient and/or guardian regarding: the cp historical points, exam findings, and any diagnostic results supporting the discharge/admit diagnosis, lab results, the need for outpatient follow up, a family practitioner, to return to the emergency department if symptoms worsen or persist or if there are any questions or concerns that arise at home. 09/17 15:27 Order name: Strep; Complete Time: 16:46 cp 09/17 16:46 Interpretation: Reviewed. 09/17 16:22 Order name: COVID-19/FLU A+B; Complete Time: 17:17 EDMS 09/17 17:17 Interpretation: Results Reviewed. 09/17 16:27 Order name: Throat Culture EDMS Administered Medications: 15:40 Drug: Albuterol 2.5 mg Route: Inhalation; sl2 16:46 Follow up: Response: No adverse reaction; Marked relief of symptoms sl2 15:40 Drug: AtroVENT (ipratropium) Aerosol 0.5 mg Route: Inhalation; sl2 16:46 Follow up: Response: No adverse reaction; Marked relief of symptoms sl2 Disposition: 17:30 Chart complete. 09/18 07:15 Co-signature as Attending Physician, Ruiz Rocha MD I agree with the assessment and kdr plan of care. Disposition Summary: 09/17/21 17:20 Discharge Ordered Location: Home cp Problem: an acute exacerbation cp Symptoms: have improved cp Condition: Stable cp Diagnosis - Allergic rhinitis, unspecified cp - Unspecified asthma, uncomplicated cp Followup: cp - With: Private Physician - When: 2 - 3 days - Reason: Worsening of condition Discharge Instructions: - Discharge Summary Sheet cp - Allergies, Adult cp - Asthma, Adult cp Forms: - Work release form ss - Medication Reconciliation Form cp - Thank You Letter cp - Antibiotic Education cp - Prescription Opioid Use cp Prescriptions: - Flonase Allergy Relief 50 mcg/actuation Nasal spray,suspension - inhale 1 spray by INTRANASAL route once daily; 1 Device; Refills: 0, Product cp Selection Permitted - Medrol (Mike) 4 mg Oral Tablets, Dose Pack - take 1 tablet by ORAL route as directed - follow package instructions; 1 cp packet; Refills: 0, Product Selection Permitted Signatures: Dispatcher [employer] EDMS Ruiz Rocha MD MD kdr Smirch, Shelby, RN RN ss Ranulfo Sahu, RESHMA PA Cassidy Hawkins RN RN sl2 Corrections: (The following items were deleted from the chart) 09/17 16:22 15:27 CORONAVIRUS+MR.LAB.BRZ ordered. EDMS EDMS 16: 15:27 Influenza Screen (A \T\ B)+BA.LAB.BRZ ordered. EDMS EDMS
--- NOTE | 2021-09-17 17:20 | ER ---
Nurse's Notes [facility] Name: Alix Villasenor Age: 46 yrs Sex: Female : 1975 Arrival Date: 09/17/2021 Time: 14:02 Bed 20 Private MD: ALEISHA SOLARES Diagnosis: Allergic rhinitis, unspecified;Unspecified asthma, uncomplicated Presentation: 09/17 14:30 Chief complaint: Patient states: shortness of breath, sinus pressure, nasal congestion ss and lightheadedness that began 2-3 days ago. Denies fever. Coronavirus screen: Client denies travel out of the [place] in the last 14 days. Client presents with at least one sign or symptom that may indicate coronavirus-19. Ebola Screen: Patient denies exposure to infectious person. Patient denies travel to an Ebola-affected area in the 21 days before illness onset. Initial Sepsis Screen: Does the patient meet any 2 criteria? No. Patient's initial sepsis screen is negative. Does the patient have a suspected source of infection? No. Patient's initial sepsis screen is negative. Risk Assessment: Do you want to hurt yourself or someone else? Patient reports no desire to harm self or others. Onset of symptoms was September 14, 2021. 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 - Social history:: Smoking status: Patient denies any tobacco usage or history of. Screenin:35 Abuse screen: Denies threats or abuse. Denies injuries from another. sl2 15:35 Nutritional screening: No deficits noted. Tuberculosis screening: No symptoms or risk sl2 factors identified. Fall Risk None identified. No fall in past 12 months (0 pts). No secondary diagnosis (0 pts). No IV (0 pts). Ambulatory Aid- None/Bed Rest/Nurse Assist (0 pts). Gait- Normal/Bed Rest/Wheelchair (0 pts) Mental Status- Oriented to own ability (0 pts). Total Valencia Fall Scale indicates No Risk (0-24 pts). Assessment: 15:30 General: Appears in no apparent distress. well groomed, well developed, Behavior is sl2 calm, cooperative, appropriate for age, Reports SOB X 2 weeks. 15:30 Pain: Denies pain. Neuro: No deficits noted. Cardiovascular: No deficits noted. Rhythm sl2 is regular. Respiratory: Airway is patent Trachea midline Respiratory effort is even, unlabored, Respiratory pattern is regular, Breath sounds are clear bilaterally. Respiratory: Reports shortness of breath since 2 weeks ago - no relief with albuterol inhaler - lung sounds clear bilaterlly - O2 saturation at 100% room air with pulse 75bpm. No signs of distress noted at this time. GI: No deficits noted. No signs and/or symptoms were reported involving the gastrointestinal system. : No deficits noted. No signs and/or symptoms were reported regarding the genitourinary system. EENT: No deficits noted. No signs and/or symptoms were reported regarding the EENT system. Derm: No deficits noted. No signs and/or symptoms reported regarding the dermatologic system. Musculoskeletal: No deficits noted. No signs and/or symptoms reported regarding the musculoskeletal system. 16:45 Reassessment: Patient verbalized improvement post breathing treatment. sl2 Vital Signs: 14:30 BP 127 / 86; Pulse 86; Resp 15; Temp 97.2(TE); Pulse Ox 100% on R/A; Weight 68.04 kg; ss Height 5 ft. 6 in. (167.64 cm); Pain 0/10; 15:30 BP 135 / 93; Pulse 75; Resp 18; Temp 97.6; Pulse Ox 100% ; sl2 16:15 BP 135 / 73; Pulse 78; Resp 18; Pulse Ox 100% ; sl2 16:48 BP 114 / 66; Pulse 90; Resp 18; Temp 97.8; Pulse Ox 100% ; sl2 17:30 BP 122 / 98; Pulse 85; Resp 18; Temp 97.8; Pulse Ox 100% ; sl2 14:30 Body Mass Index 24.21 (68.04 kg, 167.64 cm) ED Course: 14:02 Patient arrived in ED. ap4 14:05 ALEISHA SOLARES is Private Physician. ap4 14:31 Triage completed. ss 14:31 Arm band placed on right wrist. ss 15:09 Ranulfo Sahu PA is PHCP. cp 15:09 Ruiz Rocha MD is Attending Physician. cp 15:35 Cassidy Dinh, URBAN is Primary Nurse. sl2 15:35 Patient has correct armband on for positive identification. Placed in gown. Bed in low sl2 position. Call light in reach. Side rails up X 1. 15:35 No provider procedures requiring assistance completed. Patient did not have IV access sl2 during this emergency room visit. 16:11 Strep Sent. kj1 Administered Medications: 15:40 Drug: Albuterol 2.5 mg Route: Inhalation; sl2 16:46 Follow up: Response: No adverse reaction; Marked relief of symptoms sl2 15:40 Drug: AtroVENT (ipratropium) Aerosol 0.5 mg Route: Inhalation; sl2 16:46 Follow up: Response: No adverse reaction; Marked relief of symptoms sl2 Outcome: 17:20 Discharge ordered by MD. cp 17:44 Discharged to home ambulatory. 17:44 Condition: good 17:44 Discharge instructions given to patient, Instructed on discharge instructions, follow up and referral plans. Demonstrated understanding of instructions, follow-up care. 17:44 Patient left the ED. Signatures: Vanessa Grullon RN RN Ranulfo Sahu PA PA cp Jackson, Kandis kj1 Cassidy iDnh, URBAN RN 2 Elisabeth Faria ap4 Corrections: (The following items were deleted from the chart) 16:22 16:11 Influenza Screen (A \T\ B)+BA.LAB.BRZ drawn and sent. kj1 EDMS 16:22 16:11 CORONAVIRUS+MR.LAB.BRZ drawn and sent. kj1 EDMS
[2021-09-17 18:30] VITALS: O2SAT 100
[2021-09-17 18:34] VITALS: TEMP 97.8
[2021-09-17 18:36] VITALS: BP 122/98
== END 2021-09-17 17:44 | disposition home or self-care (01) ==
LOC: ER 14:00
DX: J45.909 Unspecified asthma, uncomplicated (principal); Z20.822 Contact with and (suspected) exposure to COVID-19; Z91.048 Other nonmedicinal substance allergy status
CPT/HCPCS: 87070; 87081; 0240U; 99284

== ENCOUNTER 2022-12-24 17:26 | Inpatient (IN) | payer BC ==
--- OUTSIDE RECORDS SUMMARY | 2022-12-24 17:30 | XMS REPORT | Continuity of Care Document ---
:1975 Author Organization [facility] t Address [address] [place] [address] Care Team Providers Name Role Phone Lizbeth Martinez MD Primary Care Physician CECIL AQUINO Attending Clinician Unavailable Cecil Aquino MD Attending Clinician Lily Ahmadi Attending Clinician Unavailable NITA MOBLEY Attending Clinician Unavailable Nita Mobley DO Attending Clinician Irene Mckoy Attending Clinician Unavailable LILY AHMADI Attending Clinician Unavailable Lizbeth Martinez Admitting Clinician Unavailable NITA MOBLEY Admitting Clinician Unavailable Physician, No Primary or Family Admitting Clinician Unavaila ble Payers Payer Name Policy Type Policy Number Effective Date Expiration Date Emma li [facility] [id number] 2017 00:00:00 SELECT Problems Condition Condition Condition Status Onset Resolution Last Treating Co mments Source Name Details Category Date Date Treatment Clinician Date Encounter Encounter Disease Active 2014-10 Uni vers for for 2-03 ity of general general 00:00: [place] counseling counseling 00 Me dical and advice and advice Br anch on on contracept contracept ronnie ronnie management management Excessive Excessive Disease Active 2014-10 Uni vers hair on hair on 12-03 ity of females females 00:00: [place] 00 Medical [place] Depo-Prove Depo-Prove Disease Active U nivers ra ra 4-16 ity of contrace[place] r[place]nie status ronnie status 00 Me dical Branch Asthma Asthma Disease Active 2012-10 Univers 0-25 ity of 00:00: [place] 00 [facility] Allergies, Adverse Reactions, Alerts Allergy Allergy Status Severity Reaction(s) Onset Inactive Treating Comm ents Source Name Type Date Date Clinician No Known DA Active U [facility] Allergie 7-25 [place] 00:00: d 00 [facility] No Known DA Active U [facility] Allergie 725 [place] 00:00: d 00 [facility] iodine DA Active SV 2018-10 [facility] 0-15 Clear 00:00: Xiao 00 [facility] iodine DA Active SV THROAT 2018-10 [facility] CLOSING 0-15 Clear 00:00: Xiao 00 [facility] No Known DA Active U [facility] Allergie 3-24 [place] 00:00: d 00 [facility] IODINE DRUG Active Anaphylaxis 2012-10 Unive rs INGREDI 0-25 ity of 00:00: [place] 00 [facility] Iodine Propensi Active Anaphylaxis 2012-10 Uni vers ty to 0-25 ity of adverse 00:00: [place] reaction Medical s [place] Social History Social Habit Start Date Stop Date Quantity Comments Source ASSERTION [facility] Exposure to 2022-08-27 2022-09-06 Not sure [facility] SARS-CoV-2 00:00:00 07:50:00 [facility] (event) Branch Alcohol intake 2022-09-06 2022-09-06 Current [facility] 00:00:00 00:00:00 non-drinker of [facility] alcohol (finding) Branch Tobacco use and 2013-08-24 2013-08-24 Smokeless tobacco Un iversity of exposure 00:00:00 00:00:00 non-user [facility] Sex Ass[birth year] At [birth year] Universit y of 00:00:00 00:00:00 [facility] Smoking Status Start Date Stop Date Source Never smoked tobacco [facility] Medications Ordered Filled Start Stop Current Ordering Indication Dosage Frequency Signature Comments Components Source Medication Medication Date Date Medication? Clinician (SIG) Name Name NaCl 0.9% 2021- No 1000mL at 999 Uni vers (NS) bolus 04-0102 mL/hr, ity of infusion 09:45: 10:20 1,000 mL, [place] 1,000 mL 00 :00 IV Medical Infusion, Branch ONCE, 1 dose, On [place] 04/01/22 at 0445, BOWEN ketorolac 2021- No 30mg 30 mg, Unive rs (TORADOL) 04-01 Slow IV ity of injection 09:45: 09:17 Push, [place] 30 mg 00 :00 ONCE, 1 Medical dose, On Branch [facility] 04/01/22 at 0445, BOWEN ondansetron 2021- No 4mg 4 mg, Slow Univers (ZOFRAN 04-01 IV Push, ity of (PF)) 09:45: 09:16 ONCE, 1 [place] injection 4 00 :00 dose, On Medi no mg [facility] 04/01/22 Branch at 0445, BOWEN ketorolac 0 Yes [id number] 10mg Take 1 Uni vers 10 mg 6-02 tablet by ity of tablet 00:00: mouth [place] 00 every 6 Medical (six) Branch hours as needed for Pain (scale 1-3). ondansetron 2021-0 Yes [id number] 4mg Take 1 U nivers 4 mg 6-02 tablet by ity of disintegrat 00:00: mouth [place] ing tablet 00 every 8 Medica l (eight) Branch hours as needed for Nausea and Vomiting (N/V). ketorolac 2021-0 Yes [id number] 10mg Take 1 Uni vers 10 mg 6-02 tablet by ity of tablet 00:00: mouth [place] 00 every 6 Medical (six) Branch hours as needed for Pain (scale 1-3). ondansetron 2021-0 Yes [id number] 4mg Take 1 U nivers 4 mg 6-02 tablet by ity of disintegrat 00:00: mouth [place] ing tablet 00 every 8 Medica l (eight) Branch hours as needed for Nausea and Vomiting (N/V). tamsulosin 2017-10 Yes .4mg Take 1 Unive rs 0.4 mg 24 0-03 capsule by ity of hr capsule 00:00: mouth at [place] as 00 bedtime. Medical Branch tamsulosin 2017-10 Yes .4mg Take 1 Unive rs 0.4 mg 24 0-03 capsule by ity of hr capsule 00:00: mouth at [place] 00 bedtime. Medical Branch ketorolac 2017-10- No 10mg Take 1 Unive rs 10 mg 0-03 06-02 tablet by ity of tablet 00:00: 00:00 mouth [place] 00 :00 every 8 Medical (eight) Branch hours. ondansetron 2017-10- No 4mg Take 1 Uni vers 4 mg 0-03 06-02 tablet by ity of disintegrat 00:00: 00:00 [place] tablet 00 :00 every 4 Medica l (four) Branch hours as needed for Nausea and Vomiting (N/V). traMADOL 50 2017-10- No 50mg Take 1 Uni vers mg tablet 0-03 06-02 tablet by ity of 00:00: 00:00 mouth [place] 00 :00 every 6 Medical (six) Branch hours as needed for Pain (scale 4-6). medroxyPROG 2014-10 Yes [id number] 150mg Univers ESTERone 2-03 ity of (DEPO-PROVE 20:15: [place] RA) 00 Medical injection Branch 150 mg medroxyPROG 2014-10 Yes [id number] 150mg Univers ESTERone 2-03 ity of (DEPO-PROVE 20:15: [place] RA) 00 Medical injection Branch 150 mg FLUoxetine Yes [id number] 20mg Take 1 Cap Univers (PROZAC) 20 5-14 by mouth ity of mg capsule 00:00: daily. Medical Branch FLUoxetine Yes [id number] 20mg Take 1 Cap Univers (PROZAC) 20 5-14 by mouth ity of mg capsule 00:00: daily. Medical Branch docusate 2012-10 Yes 240mg Take 1 Cap Un fabrice calcium 2-19 by mouth ity of (SURFAK) 00:00: once daily [place] 240 mg 00 as needed Medical capsule for Branch Constipati on. docusate 2012-10 Yes 240mg Take 1 Cap Un fabrice calcium 2-19 by mouth ity of (SURFAK) 00:00: once daily [place] 240 mg 00 as needed Medical capsule for Branch Constipati on. ferrous 2012-10 Yes 325mg Take 1 Tab Uni vers sulfate 0-28 by mouth ity of (IRON, 00:00: daily. [place] FERROUS 00 Medical SULFATE,) Branch 325 mg (65 mg iron) tablet ferrous 2012-10 Yes 325mg Take 1 Tab Uni vers sulfate 0-28 by mouth ity of (IRON, 00:00: daily. [place] FERROUS 00 Medical SULFATE,) Branch 325 mg (65 mg iron) tablet albuterol 2012-10 Yes [id number] 2{puff} Inhale 2 Univers (VENTOLIN) 0-25 Puffs ity of 90 00:00: every 6 [place] mcg/actuati 00 (six) Medical on inhaler hours as Branc h needed for Wheezing or Shortness of Breath. albuterol 2012-10 Yes [id number] 2{puff} Inhale 2 Univers (VENTOLIN) 0-25 Puffs ity of 90 00:00: every 6 [place] mcg/actuati 00 (six) Medical on inhaler hours as Branc h needed for Wheezing or Shortness of Breath. Immunizations Ordered Filled Immunization Date Status Comments [facility] e Immunization Name Name [facility] 2013-09-07 Completed University of 00:00:00 [facility] 2013-09-07 Completed University of 00:00:00 [facility] Influenza Virus 2013-08-24 Completed Universit y of Vaccine (3+ yrs) 00:00:00 [facility] Influenza Virus 2013-08-24 Completed Universit y of Vaccine (3+ yrs) 00:00:00 [facility] Td 2011-08-24 Completed University of 00:00:00 [facility] Td 2011-08-24 Completed University of 00:00:00 [facility] Vital Signs Vital Name Observation Time Observation Value Comments Source Systolic blood 2022-09-06 13:59:00 129 mm[Hg] Univer sity of pressure [facility] Diastolic blood 2022-09-06 13:59:00 92 mm[Hg] Unive rsity of pressure [facility] Heart rate 2022-09-06 13:59:00 94 /min Universi ty of [facility] Body temperature 2022-09-06 13:59:00 37.06 Dania [facility] [place] [facility] Respiratory rate 2022-09-06 13:59:00 18 /min [facility] [place] [facility] [place] [facility] [place] Body weight 2022-09-06 13:59:00 77.111 kg Universi ty of [facility] BMI 2022-09-06 13:59:00 27.44 kg/m2 Universi ty [facility] Oxygen saturation in 2022-09-06 13:59:00 100 /min University of Arterial blood by [facility] Pulse oximetry Branch Systolic blood 2022-04-01 08:37:00 141 mm[Hg] Univer sity of pressure [facility] Diastolic blood 2022-04-01 08:37:00 86 mm[Hg] [facility] Heart rate 2022-04-01 08:37:00 87 /min Universi ty [facility] Body temperature 2022-04-01 08:37:00 36.44 Dania [facility] [place] [facility] Respiratory rate 2022-04-01 08:37:00 18 /min [facility] Body height 2022-04-01 08:37:00 167.6 cm Universi ty of [facility] Body weight 2022-04-01 08:37:00 70.308 kg Universi ty [facility] BMI 2022-04-01 08:37:00 25.02 kg/m2 Universi ty [facility] Oxygen saturation in 2022-04-01 08:37:00 100 /min University of Arterial blood by [facility] Pulse oximetry Branch Procedures Procedure Date / Time Performed Performing Clinician [facility] e POCT TEST 2022-09-06 15:12:00 Cecil Aquino [facility] URINALYSIS 2022-09-06 14:35:00 Cecil Aquino [place] f [facility] RAPID INFLUENZA A/B 2022-09-06 14:29:00 Cecil Aquino [facility] CONSENT/REFUSAL FOR 2022-09-06 13:52:46 Doctor Unassigned, No Un [facility] DIAGNOSIS AND Name Medical Branch TREATMENT CT ABDOMEN PELVIS WO 2022-04-01 10:00:25 Nita Mobley [facility] POCT TEST 2022-04-01 09:23:00 Nita Mobley [facility] URINALYSIS 2022-04-01 09:21:00 Nita Mobley [facility] COMP. METABOLIC PANEL 2022-04-01 09:20:00 Nita Mobley [facility] ([id number]) [facility] CBC WITH DIFF 2022-04-01 09:20:00 Nita Mobley [facility] NOTICE OF PRIVACY 2022-04-01 08:33:51 Doctor Unassigned, No [facility] PRACTICES Name [facility] CONSENT/REFUSAL FOR 2022-04-01 08:29:05 Doctor Unassigned, No [facility] DIAGNOSIS AND Name [facility] TREATMENT Encounters Start End Encounter Admission Attending Care Care Encounter Source Date/Time Date/Time Type Type Clinicians Facility Department ID 2020-09-04 Inpatient [facility] ANDREW [id number] [facility] 22:30:00 1105 [facility] 2022-09-06 2022-09-06 [id number] Univers 08:01:00 09:33:00 CECIL tavera [facility] 2022-09-06 2022-09-06 [facility] [id number] Univers 08:01:00 09:33:00 Cecil MARIEE [id number] i ty [facility] [id number] [facility] [id number] [facility] 084 Branch 2022-04-19 2022-04-19 Outpatient DEBORAH Ahmadi, [facility] [id number] [facility] 08:00:00 08:00:00 [facility] 2022-04-01 2022-04-01 [facility] [id number] Univers 03:39:00 06:55:00 NITA tavera [facility] 2022-04-01 2022-04-01 [facility] [id number] Univers 03:39:00 06:55:00 Nita MARIEE [id number] ity [facility] [id number] [facility] [id number] [facility] 084 Branch 2021-05-24 2021-05-24 Emergency EM JACLYN Mckoy [id number] [facility] 11:14:00 12:37:00 Irene 0725 [facility] 2021-01-30 2021-01-30 Outpatient DEBORAH AHMADI [facility] [id number] [facility] 12:00:00 12:00:00 LILY 0402 [facility] 2020-09-04 2020-09-04 Outpatient AIRAM Mckoy LABO [id number] [facility] 23:54:00 23:54:00 Irene 57 [facility] Results Test Description Test Time Test Comments Results Result Comments Source POCT TEST 2022-09-06 15:12:00 Test Item Value Reference Range Interpretation Comme nts POCT PREG (test code = 1605) NEGATIVE On board controls acceptable with C Line (test code = 3574) present POCT PREG LOT # (test code = 3575) [id number] POCT PREG TEST DATE (test code = 3576) 2024-01-29 Lab Interpretation (test code = 55340-5) [facility] (12803)2022-04-01 09:43:50 Test Item Value Reference Range Interpretation Comments NA (test code = 140 mmol/L 135-145 9169552276) K (test code = 3.6 mmol/L 3.5-5.0 9233630154) CL (test code = 105 mmol/L 98-108 9337038721) CO2 TOTAL (test code = 23 mmol/L 23-31 0457211625) AGAP (test code = 2-16 3480628654) BUN (test code = 14 mg/dL 7-23 7312904743) GLUCOSE (test code = 152 mg/dL 70-110 H 1726831585) CREATININE (test code = 0.81 mg/dL 0.50-1.04 6538728292) TOTAL BILI (test code = 0.3 mg/dL 0.1-1.2 2447440245) CALCIUM (test code = 9.4 mg/dL 8.6-10.6 9276946070) T PROTEIN (test code = 7.8 g/dL 6.3-8.2 1888058435) ALBUMIN (test code = 4.7 g/dL 3.5-5.0 7408354832) ALK PHOS (test code = 69 U/L 34-122 7402794871) ALTv (test code = 12 U/L 5-35 1742-6) AST(SGOT) (test code = 20 U/L 13-40 1755100110) eGFR (test code = mL/min/1.73m2 8389596694) GILLIAN (test code = GILLIAN) Association of Glomerular Filtration Rate (GFR) and Staging of Kidney Disease* + --+ --+ ------+| GFR (mL/min/1.73 m2) ?| With Kidney Damage ?| ?Without Kidney Damage+ --------+ --------+ +| ?>90 ?| ?Stage one ?| ? Normal ?+ ---+ ---+ -------+| ?60-89 ?| ?Stage two ?| ? Decreased GFR ? + --+ --+ ------+| ?30-59 ?| ?Stage three ?| ? Stage three ? + --+ --+ ------+| ?15-29 ?| ?Stage four ? | ? Stage four ?+ ---+ ---+ -------+| ?<15 (or dialysis) ? ?| ?Stage five ? | ? Stage five ?+ ---+ ---+ -------+ *Each stage assumes the associated GFR level has been in effect for at least three months. ?Stages 1 to 5, with or without kidney disease, indicate chronic kidney disease. Notes: Determination of stages one and two (with eGFR >59mL/min/1.73 m2) requires estimation of kidney damage for at least three months as defined by structural or functional abnormalities of the kidney, manifested by either:Pathological abnormalities or Markers of kidney damage (including abnormalities in the composition of the blood or urine or abnormalities in imaging tests). Lab Interpretation Abnormal (test code = 13467-9) [facility] WITH [id number] 09:31:25 Test Item Value Reference Range Interpretation Comments WBC (test code = See_Comment [Automated 2390-2) message] The sy stem which generated this result transmitted reference range : 4.30 - 11.10 10*3/?L. The reference range was not used to interpret this result as normal/abnormal . RBC (test code = See_Comment L [Automated 789-8) message] The sy stem which generated this result transmitted reference range : 3.93 - 5.25 10*6/?L. The reference range was not used to interpret this result as normal/abnormal . HGB (test code = 11.4 g/dL 11.6-15.0 L 718-7) HCT (test code = 33.7 % 35.7-45.2 L 4544-3) MCV (test code = 88.5 fL 80.6-95.5 787-2) MCH (test code = 29.9 pg 25.9-32.8 785-6) MCHC (test code = 33.8 g/dL 31.6-35.1 786-4) RDW-SD (test code = 39.5 fL 39.0-49.9 23052-9) RDW-CV (test code = 12.1 % 12.0-15.5 788-0) PLT (test code = See_Comment [Automated 777-3) message] The sy stem which generated this result transmitted reference range : 166 - 358 10*3/ ?L. The reference r angelica was not used to interpret this result as normal/abnormal . MPV (test code = 9.2 fL 9.5-12.9 L 01569-5) NRBC/100 WBC (test See_Comment [Automat ed code = 6986847929) message] The system which generated this result transmitted reference range : 0.0 - 10.0 /100 WBCs. The refer ence range was not u sed to interpret th is result as normal/abnormal . NRBC x10^3 (test code <0.01 See_Comment [Auto mated = 2334421813) message] The s ystem which generated this result transmitted reference range : 10*3/?L. The reference range was not used to interpret this result as normal/abnormal . GRAN MAT (NEUT) % 77.0 % (test code = 770-8) IMM GRAN % (test code 0.20 % = 6648593678) LYMPH % (test code = 18.0 % 736-9) MONO % (test code = 3.7 % 5905-5) EOS % (test code = 0.9 % 713-8) BASO % (test code = 0.2 % 706-2) GRAN MAT x10^3(ANC) 6.21 10*3/uL 1.88-7.09 (test code = 5740505743) IMM GRAN x10^3 (test <0.03 0.00-0.06 code = 7315726714) LYMPH x10^3 (test code 1.45 10*3/uL 1.32-3.29 = 731-0) MONO x10^3 (test code 0.30 10*3/uL 0.33-0.92 L = 742-7) EOS x10^3 (test code = 0.07 10*3/uL 0.03-0.39 711-2) BASO x10^3 (test code <0.03 0.01-0.07 = 704-7) Lab Interpretation Abnormal (test code = 28837-7) [id number] 09:23[facility]00 Test Item Value Reference Range Interpretation Comments POCT PREG (test code = 1605) Negative On board controls acceptable with Positive C Line (test code = 3574) POCT PREG LOT # (test code = 3575) [id number] POCT PREG TEST DATE (test 08/30/2023 code = 3576) Lab Interpretation (test code = Normal 00479-1) [facility] C[facility] IF [id number] 12:28:00 Test Item Value Reference Range Interpretation Comments UA COLOR (test code = YELLOW discript YEL/STRAW COLU) UA APPEARANCE (test code HAZY discript CLEAR A = APPU) UA GLUCOSE DIPSTICK (test NEGATIVE [...] 5.0-7.0 = EWELINA) UA PROTEIN DIPSTICK (test NEGATIVE mg/dL NEG code = PROU) UA UROBILINIOGEN DIPSTICK 0.2 mg/dL <2.0 (test code = URO) UA NITRITE DIPSTICK (test NEGATIVE SCREEN NEG code = EVA) UA LEUKOCYTE ESTERASE NEGATIVE Leuk/mcL NEGATIVE DIPSTICK (test code = LEUU) UA CULTURE NEEDED? (test NO, WBC<10 Criteria Culture CHK code = UACULT) Indication for culture: Dysuria/FrequencyUA RFLX MICR CULT [...] Indication for culture: Dysuria/Frequency- CT NECK W/O [id number] 01:02:00[facility] 1975 Sex: F Name: JEAN MCHUGHland : 1975 Age/S: 45 / F [id number] [address] [facility] Unit #:[id number] Loc: [place] [address] Phys: Irene Mckoy MD Acct: [id number] Dis Date: Status:REG ER PHONE #: [phone] Exam Date: 09/05/2020 0048 FAX #: Reason: neck mass; eval for abscess EXAMS: CPT: [id number] CT NECK W/O CONTRAST 05349 EXAM: - CT NECK W/O CONTRAST LOCATION: H61 CLINICAL HISTORY/INDICATION: Swelling in the left side of the neck. Neck mass; eval for abscess COMPARISON: None TECHNIQUE: Axial images were obtained from the thoracic inlet to the skull base without IV contrast administration. Coronal and sagittal [...] 1 Signed Report (CONTINUED) Name: JEAN MCHUGH [place] : 1975 Age /S: 45 / F [facility] Unit #: [id number] Loc: [place] [address] Phys: Irene Mckoy MD Acct: [id number] Dis Date: Status: REG ER PHONE #: [phone] Exam Date: 09/05/2020 0048 FAX #: Reason: neck mass; eval for abscess EXAMS: CPT: [id number] CT NECK W/O CONTRAST 99602 (Continued) s ubcutaneous edema/fat stranding in the left lower neck at the level of the thyroid cartilage. This is compatible with cellulitis. There is thickening of the platysma muscle with thin nonorganized fluidpresent deep to the muscle, measuring up to 8 mm in thickness. No organized fluid collection is seento suggest a drainable abscess. No retropharyngeal fluid collection. UPPER CHEST: Lung apices are clear. BONES: Regional osseous structures are intact. IMPRESSION: 1. Edema and fat stranding in the left lateral neck centered at the level of the thyroid cartilage is likely due to cellulitis. There is fascial thickening of the platysma muscle with thin nonorganized fluid deep to the muscle. No organized fluid collection is seen to suggest a drainable abscess. No retropharyngeal fluid collection. 2. No mass or adenopathy. at 0102 Reportedand signed by: Alonso Bernal M.D. CC: Lizbeth Martinez MD; Irene Mckoy MD Technologist:RT Camille(R) CTDI: DLP: Trnscb Date/Time: 09/05/2020 (010) t.[email or web address] Orig Print D/T: S: 09/05/2020 (104) PAGE 2 Signed ReportLACTIC [id number] 00:21:00 Test Item Value Reference Range Interpretation Comments LACTIC ACID (test code = LACT) 2.8 mmol/L 0.4-2.0 H HCG [id number] 00:18:00 Test Item Value Reference Range Interpretation Comments HCG SERUM (test < 1 mi-IU/ML 0-6 N 0 - 6 NOT P REGNANT > 6 code = HCG) SUGGESTIVE OF E JAE RISES TWO FOLD EVERY 2 DAYS; S UGGEST RECONFIRMING AF TER 2 DAYS. 150,000-2 00,[address] TRIMESTER 10 ,000 - 50,000 2ND & 3R D TRIMESTER COMPREHENSIVE METABOLIC [id number] 00:11:00 Test Item Value Reference Range Interpretation [...] TOTAL (test code = ALKP) CBC W/AUTO [id number] 23:52:00 Test Item Value Reference Range Interpretation [...] = MDIFF) UA RFLX MICR CULT IF [id number] 20:30:00 Test Item Value Reference Range Interpretation [...] CATCHIndication for culture: Suprapubic Pain Dysuria/FrequencyUR HCG [id number] 20:30:00 Test Item Value Reference Range Interpretation Comments UR HCG QUAL (test code = HCGQLU) NEGATIVE NEGATIVE SOURCE OF URINE: CLEAN CATCHIndication for culture: Suprapubic Pain Dysuria/FrequencyUA RFLX MICR CULT IF [id number] 20:29:00 Test Item Value Reference Range Interpretation [...] CATCHIndication for culture: Suprapubic Pain Dysuria/FrequencyUR HCG [id number] 20:29:00 Test Item Value Reference Range Interpretation Comments UR HCG QUAL (test code = HCGQLU) NEGATIVE SOURCE OF URINE: CLEAN CATCHIndication for culture: Suprapubic Pain Dysuria/Frequency"
[2022-12-24] MEDS ORDERED: LEVALBUTEROL 1.25 MG/3 ML NEB ONE (18:39)
[2022-12-24] MEDS ORDERED: IPRATROPIUM BROM 0.5MG/2.5ML ONE (18:40)
--- NOTE | 2022-12-24 18:46 | EDPHYS ---
Physician Documentation [facility] Name: Alix Villasenor Age: 47 yrs Sex: Female : 1975 Arrival Date: 12/24/2022 Time: 17:29 Bed 8 Private MD: ED Physician Ranulfo Moseley HPI: 12/24 18:26 This 47 yrs old Black Female presents to ER via Ambulatory with complaints of Shortness lawrence Of Breath. 18:26 This 47 yrs old Black Female presents to ER via Ambulatory with complaints of Shortness lawrence Of Breath. 18:26 The patient has shortness of breath at rest, with light activity. Onset: The lawrence symptoms/episode began/occurred 2 day(s) ago. Duration: The symptoms are continuous, and are steadily getting worse. The patient's shortness of breath is aggravated by exertion, light activity, supine position, is alleviated by rest, sitting up, application of supplemental oxygen. Associated signs and symptoms: Pertinent positives: non-productive cough. Severity of symptoms: At their worst the symptoms were moderate in the emergency department the symptoms are unchanged. The patient has not experienced similar symptoms in the past. Historical: - Allergies: 17:33 Iodine; hb - Home Meds: 21:26 Advair Diskus Inhl [Active]; Zyrtec 10 mg Oral tab 1 tab once daily [Active]; albuterol kd3 sulfate 90 mcg/actuation Inhl HFAA 1 puff PRN [Active]; Singulair Oral [Active]; - PMHx: 17:33 abdominal hernia; allergies; Asthma; peptic ulcer; hb - Immunization history:: Adult Immunizations up to date. - Social history:: Smoking status: Patient denies any tobacco usage or history of. ROS: 18:32 Constitutional: Negative for fever, chills, and weight loss, Eyes: Negative for injury, lawrence pain, redness, and discharge, ENT: Negative for injury, pain, and discharge, Neck: Negative for injury, pain, and swelling, Abdomen/GI: Negative for abdominal pain, nausea, vomiting, diarrhea, and constipation, Back: Negative for injury and pain, : Negative for injury, bleeding, discharge, and swelling, MS/Extremity: Negative for injury and deformity, Skin: Negative for injury, rash, and discoloration, Neuro: Negative for headache, weakness, numbness, tingling, and seizure, Psych: Negative for depression, anxiety, suicide ideation, homicidal ideation, and hallucinations, Allergy/Immunology: Negative for hives, rash, and allergies, Endocrine: Negative for neck swelling, polydipsia, polyuria, polyphagia, and marked weight changes, Hematologic/Lymphatic: Negative for swollen nodes, abnormal bleeding, and unusual bruising. 18:32 Cardiovascular: Positive for chest pain, with cough, Negative for edema. 18:32 Respiratory: Positive for cough, shortness of breath, wheezing, inspiratory, expiratory. Exam: 18:32 Constitutional: This is a well developed, well nourished patient who is awake, alert, lawrence and in no acute distress. Head/Face: Normocephalic, atraumatic. Eyes: Pupils equal round and reactive to light, extra-ocular motions intact. Lids and lashes normal. Conjunctiva and sclera are non-icteric and not injected. Cornea within normal limits. Periorbital areas with no swelling, redness, or edema. ENT: Nares patent. No nasal discharge, no septal abnormalities noted. Tympanic membranes are normal and external auditory canals are clear. Oropharynx with no redness, swelling, or masses, exudates, or evidence of obstruction, uvula midline. Mucous membranes moist. Neck: Trachea midline, no thyromegaly or masses palpated, and no cervical lymphadenopathy. Supple, full range of motion without nuchal rigidity, or vertebral point tenderness. No Meningismus. Chest/axilla: Normal chest wall appearance and motion. Nontender with no deformity. No lesions are appreciated. Abdomen/GI: Soft, non-tender, with normal bowel sounds. No distension or tympany. No guarding or rebound. No evidence of tenderness throughout. Back: No spinal tenderness. No costovertebral tenderness. Full range of motion. Skin: Warm, dry with normal turgor. Normal color with no rashes, no lesions, and no evidence of cellulitis. Neuro: Awake and alert, GCS 15, oriented to person, place, time, and situation. Cranial nerves II-XII grossly intact. Motor strength 5/5 in all extremities. Sensory grossly intact. Cerebellar exam normal. Normal gait. Psych: Awake, alert, with orientation to person, place and time. Behavior, mood, and affect are within normal limits. 18:32 Cardiovascular: Rate: tachycardic, Rhythm: regular, Pulses: Pulses are 4+ in bilateral radial, brachial, femoral, popliteal, posterior tibial and and dorsalis pedis arteries.. Heart sounds: normal, JVD: is not appreciated. 19:08 ECG was reviewed by the Attending Physician. [facility] Vital Signs: 17:32 BP 111 / 98; Pulse 116; Resp 20; Temp 98.1; Pulse Ox 95% on R/A; Weight 75.3 kg; Height hb 5 ft. 6 in. (167.64 cm); Pain 0/10; 17:32 Body Mass Index 26.79 (75.30 kg, 167.64 cm) hb MDM: 17:34 Patient medically screened. lawrence 18:37 Differential diagnosis: asthma, Bronchitis acute asthma, reactive airway, anaphylaxis, lawrence URI, pneumonia, Pneumothorax pulmonary edema, Pulmonary Embolism reactive airway disease. Antibiotic administration: Rocephin and Zithromax given. Differential Diagnosis: Obstructed Airway Bronchitis Influenza Upper Respiratory Infection Pharyngitis Asthma Exacerbation Viral Syndrome Pneumonia. Immunization status:. Data reviewed: vital signs, nurses notes, lab test result(s), EKG, radiologic studies, plain films. Consideration of Admission/Observation Patient was admitted/placed on observation. Escalation of care including admission/observation considered. Independent interpretation of the following test(s) in the Emergency Department X-Ray: My interpretation is CXR LEFT PNA. Test considered but Not performed: CT: CT OF CHEST, RO PE. 12/24 17:40 Order name: Basic Metabolic Panel; Complete Time: 21: [facility] 12/24 17:40 Order name: CBC with Diff; Complete Time: : [facility] 12/24 17:40 Order name: LFT's; Complete Time: : [facility] 12/24 17:40 Order name: Magnesium; Complete Time: 21:27 [facility] 12/24 17:40 Order name: NT PRO-BNP; Complete Time: : [facility] 12/24 17:40 Order name: PT-INR; Complete Time: : [facility] 12/24 17:40 Order name: Troponin HS; Complete Time: : [facility] 12/24 17:40 Order name: XRAY Chest (1 view); Complete Time: 19:34 [facility] 12/24 17:40 Order name: Lipase; Complete Time: 21: [facility] 12/24 17:40 Order name: Blood Culture Adult (2) lawrence 12/24 17:40 Order name: Lactate w/ 2H reflex if indic.; Complete Time: 21:27 [facility] 12/24 17:40 Order name: COVID-19/FLU A+B; Complete Time: 19:34 [facility] 12/24 17:40 Order name: EKG; Complete Time: 17:41 [facility] 12/24 17:40 Order name: Cardiac monitoring; Complete Time: 21:21 [facility] 12/24 17:40 Order name: EKG - Nurse/Tech; Complete Time: 21:21 [facility] 12/24 17:40 Order name: IV Saline Lock; Complete Time: 21:21 [facility] 12/24 17:40 Order name: Labs collected and sent; Complete Time: 21: [facility] 12/24 17:40 Order name: O2 Per Protocol; Complete Time: : [facility] 12/24 17:40 Order name: O2 Sat Monitoring; Complete Time: 18:31 [facility] EC:08 Rate is 113 beats/min. Rhythm is regular. QRS [place] is Normal. [place] interval is normal. [facility] QRS interval is normal. QT interval is normal. No Q waves. Clinical impression: Sinus tachycardia and No evidence of ischemia. Interpreted by me. Reviewed by me. Administered Medications: 18:32 CANCELLED (Duplicate Order): Rocephin (cefTRIAXone) 1 grams IV at per protocol once; lawrence Given slow IV push per pharmacy instructions 18:43 Drug: Xopenex (levalbuterol) 3.75 mg Route: Inhalation; ll1 18:43 Drug: AtroVENT (ipratropium) Aerosol 0.5 mg Route: Inhalation; ll1 21:20 Drug: Zithromax (azithromycin) 500 mg Route: IVPB; Infused Over: 1 hrs; Site: right kd3 upper arm; 21:20 Drug: SOLU-Medrol (methylPrednisoLONE) 125 mg Route: IVP; Site: right upper arm; kd3 21:20 Drug: Rocephin (cefTRIAXone) 2 grams Route: IV; Rate: per protocol; Site: right upper kd3 arm; 21:20 Follow up: Response: No adverse reaction; IV Status: Completed infusion kd3 21:21 Drug: Pepcid (famotidine) 20 mg Route: IVP; Site: right upper arm; kd3 21:21 Drug: NS 0.9% 500 ml Route: IV; Rate: bolus; Site: right upper arm; kd3 21:21 Drug: NS 0.9% 1000 ml Route: IV; Rate: 125 ml/hr; Site: right upper arm; kd3 22:00 Drug: Potassium Chloride 20 mEq Route: IV; Rate: calculated rate; Site: right upper arm;kd3 22:00 Drug: Potassium Effervescent Tablet 50 mEq Route: PO; kd3 Disposition Summary: 12/24/22 18:45 Hospitalization Ordered Hospitalization Status: Observation lawrence Location: Telemetry/MedSurg (observation) lawrence Condition: Fair lawrence Problem: new lawrence Symptoms: have improved lawrence Bed/Room Type: Standard lawrence Provider: Marc Gallo(12/24/22 20:12) sb4 Room Assignment: Count includes the [facility](12/24/22 20:17) Diagnosis - Pneumonia due to other specified bacteria - LEFT LOWER LOBE, PNA lawrence - Moderate persistent asthma - FAILED OUTPATIENT TREATMENT lawrence - Dyspnea lawrence Forms: - Medication Reconciliation Form lawrence - SBAR form lawrence Signatures: Dispatcher [employer] EDMS Ladonna Charlton RN RN mw Anderson, Corey, MD MD cha Baxter, Heather, RN RN hb Lewis, Lynsay, RN RN ll1 Janet Castillo RN RN Cassidy Stein PA-C PA-C sb4 Corrections: (The following items were deleted from the chart) 18:32 18:22 Rocephin (cefTRIAXone) 1 grams IV at per protocol once; Given slow IV push per [facility] pharmacy instructions ordered. [facility] 20:12 18:45 Lavern Morel cha sb4 20:17 18:45 [facility]
--- NOTE | 2022-12-24 18:46 | ER ---
Nurse's Notes [facility] Name: Alix Villasenor Age: 47 yrs Sex: Female : 1975 Arrival Date: 12/24/2022 Time: 17:29 Bed 8 Private MD: Diagnosis: Pneumonia due to other specified bacteria-LEFT LOWER LOBE, PNA;Moderate persistent asthma-FAILED OUTPATIENT TREATMENT;Dyspnea Presentation: 12/24 17:32 Chief complaint: Diagnosed with flu 9 days ago, c/o worsening SOB and cough x 2 days. hb Coronavirus screen: Client presents with at least one sign or symptom that may indicate coronavirus-19. Provider contacted for isolation considerations. Ebola Screen: No symptoms or risks identified at this time. Initial Sepsis Screen: Does the patient meet any 2 criteria? No. Patient's initial sepsis screen is negative. Does the patient have a suspected source of infection? No. Patient's initial sepsis screen is negative. Risk Assessment: Do you want to hurt yourself or someone else? Patient reports no desire to harm self or others. Onset of symptoms was December 14, 2022. 17:32 Method Of Arrival: Ambulatory hb 17:32 Acuity: DENNY 3 hb Triage Assessment: 21:25 General: Appears in no apparent distress. Behavior is calm, cooperative. Respiratory: kd3 Reports shortness of breath at rest Onset: The symptoms/episode began/occurred gradually, the patient has moderate shortness of breath. Historical: - Allergies: 17:33 Iodine; hb - Home Meds: 21:26 Advair Diskus Inhl [Active]; Zyrtec 10 mg Oral tab 1 tab once daily [Active]; albuterol kd3 sulfate 90 mcg/actuation Inhl HFAA 1 puff PRN [Active]; Singulair Oral [Active]; - PMHx: 17:33 abdominal hernia; allergies; Asthma; peptic ulcer; hb - Immunization history:: Adult Immunizations up to date. - Social history:: Smoking status: Patient denies any tobacco usage or history of. Screenin:24 [facility] ED Fall Risk Assessment (Adult) History of falling in the last 3 months, kd3 including since admission No falls in past 3 months (0 pts) Confusion or Disorientation No (0 pts) Intoxicated or Sedated No (0 pts) Impaired Gait No (0 pts) Mobility Assist Device Used No (0 pt) Altered Elimination No (0 pt) Score/Fall Risk Level 0 - 2 = Low Risk Maintained a safe environment. Abuse screen: Denies threats or abuse. Denies injuries from another. Nutritional screening: No deficits noted. Tuberculosis screening: No symptoms or risk factors identified. Assessment: 18:16 Reassessment: Dr. Moseley at . ll1 18:35 Reassessment: No changes from previously documented assessment. unable to get IV, ll1 Sammy Fishman RN notified. 18:42 Reassessment: No changes from previously documented assessment. Patient and/or family ll1 updated on plan of care and expected duration. Pain level reassessed. Patient is alert, oriented x 3, equal unlabored respirations, skin warm/dry/pink. 21:25 Pain: Denies pain. Cardiovascular: Rhythm is regular. Respiratory: Airway is patent kd3 Respiratory effort is even, unlabored, Breath sounds are diminished. Vital Signs: 17:32 BP 111 / 98; Pulse 116; Resp 20; Temp 98.1; Pulse Ox 95% on R/A; Weight 75.3 kg; Height hb 5 ft. 6 in. (167.64 cm); Pain 0/10; 17:32 Body Mass Index 26.79 (75.30 kg, 167.64 cm) hb ED Course: 17:29 Patient arrived in ED. rg4 17:33 Triage completed. hb 17:33 Arm band placed on. hb 17:34 Ranulfo Moseley MD is Attending Physician. lawrence 18:15 XRAY Chest (1 view) In Process Unspecified. EDMS 18:16 Rosette Alatorre, URBAN is Primary Nurse. ll1 18:16 Patient placed in an exam room, on a stretcher. ll1 18:32 COVID-19/FLU A+B Sent. ll1 18:42 Lavern Morel MD is Hospitalizing Provider. lawrence 19:11 COVID-19/FLU A+B Sent. ll1 20:12 Marc Gallo is Hospitalizing Provider. sb4 21:24 Bed in low position. Call light in reach. Side rails up X 1. kd3 21:24 No provider procedures requiring assistance completed. Inserted saline lock: 20 gauge kd3 in right upper arm, using aseptic technique. Blood collected. 21:25 Patient admitted, IV remains in place. kd3 Administered Medications: 18:32 CANCELLED (Duplicate Order): Rocephin (cefTRIAXone) 1 grams IV at per protocol once; lawrence Given slow IV push per pharmacy instructions 18:43 Drug: Xopenex (levalbuterol) 3.75 mg Route: Inhalation; ll1 18:43 Drug: AtroVENT (ipratropium) Aerosol 0.5 mg Route: Inhalation; ll1 21:20 Drug: Zithromax (azithromycin) 500 mg Route: IVPB; Infused Over: 1 hrs; Site: right kd3 upper arm; 21:20 Drug: SOLU-Medrol (methylPrednisoLONE) 125 mg Route: IVP; Site: right upper arm; kd3 21:20 Drug: Rocephin (cefTRIAXone) 2 grams Route: IV; Rate: per protocol; Site: right upper kd3 arm; 21:20 Follow up: Response: No adverse reaction; IV Status: Completed infusion kd3 21:21 Drug: Pepcid (famotidine) 20 mg Route: IVP; Site: right upper arm; kd3 21:21 Drug: NS 0.9% 500 ml Route: IV; Rate: bolus; Site: right upper arm; kd3 21:21 Drug: NS 0.9% 1000 ml Route: IV; Rate: 125 ml/hr; Site: right upper arm; kd3 22:00 Drug: Potassium Chloride 20 mEq Route: IV; Rate: calculated rate; Site: right upper arm;kd3 22:00 Drug: Potassium Effervescent Tablet 50 mEq Route: PO; kd3 Medication: 21:25 VIS not applicable for this client. kd3 Outcome: 18:45 Decision to Hospitalize by Provider. lawrence 21:25 Admitted to Med/surg kd3 21:25 Condition: stable 21:25 Discharge instructions given to patient, Instructed on discharge instructions, follow up and referral plans. Demonstrated understanding of instructions, follow-up care. 22:00 Patient left the ED. kd3 Signatures: Dispatcher [employer] EDMS Ranulfo Moseley MD MD cha Baxter, Heather, RN Guera Avitia rg4 Rosette Alatorre RN RN ll1 Janet Castillo RN RN kd3 Cassidy Carlson PA-C PA-C sb4
--- NOTE | 2022-12-24 18:46 | RAD REPORT ---
EXAM DESCRIPTION: Dylan Single View12/24/2022 6:13 pm CLINICAL HISTORY: Cough COMPARISON: 2017 FINDINGS: [id number] left basilar lung opacities Right lung appears clear Heart is normal size IMPRESSION: Mild to moderate left lung opacities probably pneumonia
[2022-12-24 19:14] LABS: SARS-COV-2 RT PCR NEGATIVE (NEGATIVE)
--- NOTE | 2022-12-24 20:19 | P.HP ---
Certification for Inpatient Patient admitted to: Inpatient With expected LOS: <2 Midnights Patient will require the following post-hospital care: None Practitioner: I am a practitioner with admitting privileges, knowledge of patient current condition, hospital course, and medical plan of care. Services: Services provided to patient in accordance with Admission requirements found in Title 42 Section 412.3 of the Code of Federal Regulations Patient History Date of Service: 12/24/22 Primary Care Provider: Juan Reason for admission: Pneumonia History of Present Illness: Patient is a 47 year old female with past medical history of asthma and seasonal allergies who presented to the emergency department with complaints of cough and shortness of breath. Patient states that she started feeling poorly about 9 days ago and tested positive for influenza A. She has not been taking tamiflu. She has been using her rescue inhaler, but states that it hasn't been helping much. Today her chest xray shows "Mild to moderate left lung opacities probably pneumonia." Labs are significant for WBC 18.2 with left shift, sodium 133, potassium 2.8, chloride 96. In the emergency department, she was treated with nebs, azithromycin, rocephin, and solumedrol. She is saturating appropriately on room air. Patient is admitted for further management. Allergies iodine Allergy (Unverified 09/01/17 12:48) Unknown Home Medications: Cetirizine HCl [Zyrtec] 10 mg PO DAILY 09/01/17 Albuterol Sulfate [Proair Hfa] 8.5 gm IH TID PRN #1 hfa.aer.ad 09/02/17 Fluticasone [Flonase 50mcg Nasal [place]] 1 sprays NS DAILY #1 btl 09/02/17 Fluticasone/Salmeterol [Advair 250-50 Diskus] 1 each IH BID #1 blst.w.dev 09/02/17 predniSONE [Deltasone] 20 mg PO DAILY #5 tab 09/02/17 - Past Medical/Surgical History Diabetic: No -: Asthma -: PUD Past Surgical History: Patient denies surgical history Psychosocial/ Personal History: Patient is single. She has 1 child. 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 - Family History Father -: Heart disease, Hypertension Mother -: Heart disease, Hypertension, Other (see notes) - Social History Smoking Status: Never smoker Alcohol use: No CD- Drugs: No Caffeine use: Yes Place of Residence: Home Review of Systems Respiratory: Cough, Shortness of Breath Physical Examination - Vital Signs Temperature: 98.1 F Blood Pressure: 118/98 Pulse: 116 Respirations: 20 Pulse Ox (%): 95 - Physical Exam General: Alert, In no apparent distress HEENT: Atraumatic, EOMI, Sclerae nonicteric Neck: Supple, 2+ carotid pulse no bruit Respiratory: Expiratory wheezes Cardiovascular: Regular rate/rhythm, Normal S1 S2 Gastrointestinal: Normal bowel sounds, No tenderness Musculoskeletal: No tenderness Integumentary: No rashes Neurological: Normal speech, Normal affect Assessment and Plan - Problems (Diagnosis) (1) Sepsis Current Visit: Yes Status: Acute Qualifiers: Sepsis type: sepsis due to unspecified organism Sepsis acute organ dysfunction status: without acute organ dysfunction Qualified Code(s): A41.9 - Sepsis, unspecified organism (2) Pneumonia Current Visit: Yes Status: Acute Qualifiers: Pneumonia type: due to unspecified organism Laterality: left Lung location: lower lobe of lung Qualified Code(s): J18.9 - Pneumonia, unspecified organism (3) Influenza Current Visit: Yes Status: Acute (4) Asthma Current Visit: Yes Status: Chronic Qualifiers: Asthma severity: unspecified severity Asthma persistence: unspecified Asthma complication type: with acute exacerbation Qualified Code(s): J45.901 - Unspecified asthma with (acute) exacerbation - Plan Patient is admitted for further management sepsis secondary to pneumonia. Continue azithromycin and rocephin. Blood cultures obtained. Incentive spirometry and solumedrol ordered as well as PRN nebs and antitussives. Will consult pulmonology. Monitor pulse oximetry. Patient is not requiring supplemental O2. IV hydration. Monitor and replete electrolytes per protocol. Reconcile and continue home medications. Lovenox for VTE prophylaxis. Full code. Discharge Plan: Home Plan to discharge in: 48 Hours - Advance Directives Does patient have a Living Will: No Does patient have a Durable POA for Healthcare: No - Code Status/Comfort Care Code Status Assessed: Yes Code Status: Full Code Physician Review: Patient Assessed, Agree with Above Assessment and Plan Critical Care: No Time Spent Managing Pts Care (In Minutes): 50
[2022-12-24 21:02] LABS: Absolute Lymphocytes (CBC) 1.7 K/uL (0.7-4.9); Hematocrit 34.1 % (36.0-45.0); Lymphocytes % 9.3 % (15.3-44.8); MCV 86.6 fL (80-100); RBC Red Blood Cell Count 3.94 M/uL (3.86-4.86)
[2022-12-24 21:04] LABS: Protime INR 1.44
[2022-12-24] MEDS ORDERED: AZITHROMYCIN 500 MG INJ IVPB ONE (21:06)
[2022-12-24] MEDS ORDERED: METHYLPREDNISOLONE 125 MG INJ ONE (21:06)
[2022-12-24] MEDS ORDERED: CEFTRIAXONE 2000 MG/VIAL ONE (21:06)
[2022-12-24] MEDS ORDERED: FAMOTIDINE 20 MG/2 ML VIAL IV ONE (21:07)
[2022-12-24] MEDS ORDERED: NA CHLORIDE 0.9% 1,000 ML ONE (21:07)
[2022-12-24] MEDS ORDERED: NA CHLORIDE 0.9% 500 ML ONE (21:07)
[2022-12-24] MEDS ORDERED: NA CHLORIDE 0.9% 250 ML ONE (21:07)
[2022-12-24 21:20] LABS: ALT/SGPT 20 U/L (13-56); AST/SGOT 14 U/L (15-37); Albumin 3.4 g/dL (3.4-5.0); Alkaline Phosphatase 70 U/L (45-117); BUN Blood Urea Nitrogen 9 mg/dL (7-18); Bicarbonate 29 mmol/L (21-32); Bilirubin Direct 0.2 mg/dL (0-0.2); Bilirubin Total 0.6 mg/dL (0.2-1.0); Glomerular Filtration Rate 92 ml/min (=/>90); Glucose Level 103 mg/dL (74-106); Lipase 19 U/L (13-75); Magnesium 1.7 mg/dL (1.6-2.4); NT PRO-BNP 29 pg/mL (<125); Protein, Total 8.2 g/dL (6.4-8.2); Sodium Level 133 mmol/L (136-145); Troponin High Sensitivity < 3.0 pg/mL (<58.9)
[2022-12-24 21:26] LABS: Potassium 2.8 mmol/L (3.5-5.1)
[2022-12-24] MEDS ORDERED: KCL 20 MEQ/100 mL IVPB 100 ML IV ONE (21:59)
[2022-12-24] MEDS ORDERED: POTASSIUM 25 MEQ EFFERV TAB ONE (21:59)
[2022-12-24] MEDS ORDERED: ALBUTEROL 2.5 MG/3 ML NEB SOL NEB PRN (22:14)
[2022-12-24] MEDS ORDERED: IPRATROPIUM BROM 0.5MG/2.5ML NEB PRN (22:14)
[2022-12-24] MEDS ORDERED: ONDANSETRON 4 MG/2 ML VIAL IV PRN (22:14)
[2022-12-24] MEDS ORDERED: ACETAMINOPHEN 500 MG TAB PO PRN (22:14)
[2022-12-24 22:36] VITALS: BMI 25.7
[2022-12-24] MEDS: NS KCL 20MEQ 20 MEQ/1,000 ML BAG IV SCH (22:38)
[2022-12-25] MEDS: METHYLPREDNISOLONE 40 MG INJ IV SCH ×2 (00:14→08:49)
[2022-12-25 06:47] LABS: Absolute Lymphocytes (CBC) 0.5 K/uL (0.7-4.9); Hematocrit 37.1 % (36.0-45.0); MCV 86.7 fL (80-100); MPV 7.2 fL (7.6-11.3); RBC Red Blood Cell Count 4.28 M/uL (3.86-4.86)
[2022-12-25 07:12] LABS: Magnesium 1.9 mg/dL (1.6-2.4); Phosphorus 1.9 mg/dL (2.5-4.9); Thyroid Stimulating Hormone 0.219 uIU/mL (0.358-3.740)
[2022-12-25] MEDS ORDERED: INFLUENZA VACCINE (for 6+ mo) 0.5 ML DOSE IMVAC ONE (08:00)
[2022-12-25 08:35] LABS: Blood Morphology Comment NOT SEEN (NOT SEEN); Platelet Estimate ADEQ
[2022-12-25] MEDS ORDERED: AZITHROMYCIN IV 500 MG in NA CHLORIDE 0.9% 250 ML IVPB SCH (09:00)
[2022-12-25] MEDS ORDERED: CEFTRIAXONE 1,000 MG in NA CHLORIDE 0.9% 50 ML IVPB SCH (09:00)
[2022-12-25] MEDS ORDERED: ENOXAPARIN 40 MG/0.4 ML SQ SCH (09:00)
[2022-12-25] MEDS: NS KCL 20MEQ 20 MEQ/1,000 ML BAG IV SCH (09:00)
[2022-12-25] MEDS: POTASS/SODIUM PHOSPHATE 1 PKT POWD.PACK PO SCH ×3 (09:25→12:04)
[2022-12-25] MEDS ORDERED: ALBUTEROL 2.5 MG/3 ML NEB SOL NEB PRN (10:00)
--- NOTE | 2022-12-25 11:19 | P.CNS ---
Date of Consult: 12/25/22 Reason for Consult: Pneumonia Primary Care Provider: Juan Chief Complaint: Pneumonia History of Present Illness: Patient is 47 years of age history of well-controlled asthma has been sick for about a week went to the emergency room was treated with steroids then got worse again ended up with severe coughing spells at the left lower lobe pneumonia only has an albuterol inhaler does not use Advair feeling a little better Allergies iodine Allergy (Verified 12/24/22 22:37) Itching/Hives/Rash Home Medications: Cetirizine HCl [Zyrtec] 10 mg PO DAILY 09/01/17 Albuterol Sulfate [Proair Hfa] 8.5 gm IH TID PRN #1 hfa.aer.ad 09/02/17 Fluticasone [Flonase 50mcg Nasal [place]] 1 sprays NS DAILY #1 btl 09/02/17 Fluticasone/Salmeterol [Advair 250-50 Diskus] 1 each IH BID #1 blst.w.dev 09/02/17 predniSONE [Deltasone] 20 mg PO DAILY #5 tab 09/02/17 - Past Medical/Surgical History Diabetic: No -: Asthma -: PUD Psychosocial/ Personal History: Patient is single. She has 1 child. 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 - Family History Father Medical History: Heart disease, Hypertension Mother Medical History: Heart disease, Hypertension, Other (see notes) - Social History Alcohol use: No CD- Drugs: No Caffeine use: Yes Place of Residence: Home Review of Systems Respiratory: Cough, Shortness of Breath Physical Examination Temp Pulse Resp BP Pulse Ox 98.4 F 91 H 18 107/63 97 12/25/22 08:00 12/25/22 08:00 12/25/22 08:00 12/25/22 08:00 12/25/22 08:00 General: Alert, In no apparent distress, Oriented x3 Neck: Supple Respiratory: Clear to auscultation bilaterally Cardiovascular: No edema, Regular rate/rhythm - Problems (1) Pneumonia Current Visit: Yes Status: Acute Plan: Patient is 47 years of age admitted with left lower lobe community-acquired pneumonia there is no risk of resistant infection history of asthma White count is declining Danish is unremarkable chest is clear no wheezing or signs oxygenation stable patient can be discharged home new prescription of Advair 251 puff twice a day and and can be discharged home on nomination of Augmentin and azithromycin levofloxacin 750 mg every 24 hours for 5 days Qualifiers: Pneumonia type: due to unspecified organism Laterality: left Lung location: lower lobe of lung Qualified Code(s): J18.9 - Pneumonia, unspecified organism
--- NOTE | 2022-12-25 12:07 | P.DS ---
Admission Date: 12/24/22 Discharge Date: 12/25/22 Primary Care Provider: Juan Disposition: ROUTINE DISCHARGE Discharge Condition: FAIR Reason for Admission: Pneumonia - Problems (1) Influenza Current Visit: Yes Status: Acute (2) Pneumonia Current Visit: Yes Status: Acute Qualifiers: Pneumonia type: due to unspecified organism Laterality: left Lung location: lower lobe of lung Qualified Code(s): J18.9 - Pneumonia, unspecified organism (3) Sepsis Current Visit: Yes Status: Acute Qualifiers: Sepsis type: sepsis due to unspecified organism Sepsis acute organ dysfunction status: without acute organ dysfunction Qualified Code(s): A41.9 - Sepsis, unspecified organism (4) Asthma Current Visit: Yes Status: Chronic Qualifiers: Asthma severity: unspecified severity Asthma persistence: unspecified Asthma complication type: with acute exacerbation Qualified Code(s): J45.901 - Unspecified asthma with (acute) exacerbation Brief History of Present Illness: Patient is a 47 year old female with past medical history of asthma and seasonal allergies who presented to the emergency department with complaints of cough and shortness of breath. Patient states that she started feeling poorly about 9 days prior and tested positive for influenza A about 5 days ago. She states that she used her rescue inhaler without much improvement. Her chest xray in the ED showed "Mild to moderate left lung opacities probably pneumonia." Labs significant for WBC 18.2 with left shift, sodium 133, potassium 2.8, chloride 96. In the emergency department, she was treated with nebs, azithromycin, rocephin, and solumedrol. She was not hypoxic on room air. Patient was admitted for further management. Hospital Course: Patient was treated with IV vein steroid, scheduled nebs, Tamiflu and IV antibiotics. She clinically improved with treatment. She remained stable on room air. Her wheezing and shortness of breath resolved. Of note patient was in the ED earlier and was prescribed oral prednisone. I suspect leukocytosis is steroid-induced. Patient seen by pulmonary, and no further recommendation. Okay to discharge per pulmonary. Patient is discharged with oral Augmentin and Zithromax to continue treatment for bacterial pneumonia. She is also discharged with Tamiflu for influenza and bronchodilators. Vital Signs/Physical Exam: Temp Pulse Resp BP Pulse Ox 98.4 F 91 H 18 107/63 97 12/25/22 08:00 12/25/22 08:00 12/25/22 08:00 12/25/22 08:00 12/25/22 08:00 General: Alert, In no apparent distress, Oriented x3 HEENT: Mucous membr. moist/pink Neck: JVD not distended Respiratory: Clear to auscultation bilaterally, Normal air movement Cardiovascular: No edema, Regular rate/rhythm, Normal S1 S2 Gastrointestinal: Normal bowel sounds, Soft and benign, Non-distended, No tenderness Musculoskeletal: No swelling Integumentary: No rashes Neurological: Normal strength at 5/5 x4 extr Lymphatics: No axilla or inguinal lymphadenopathy Laboratory Data at Discharge: WBC 17.50 K/uL (4.3-10.9) H 12/25/22 06:26 Hgb 12.2 g/dL (12.0-15.0) 12/25/22 06:26 Hct 37.1 % (36.0-45.0) 12/25/22 06:26 Plt Count 304 K/uL (152-406) 12/25/22 06:26 PT 15.8 SECONDS (9.5-12.5) H 12/24/22 20:46 INR 1.44 12/24/22 20:46 Sodium 137 mmol/L (136-145) D 12/25/22 06:26 Potassium 4.0 mmol/L (3.5-5.1) D 12/25/22 06:26 BUN 7 mg/dL (7-18) 12/25/22 06:26 Creatinine 0.65 mg/dL (0.55-1.02) 12/25/22 06:26 Glucose 170 mg/dL (74-106) H 12/25/22 06:26 Phosphorus 1.9 mg/dL (2.5-4.9) L 12/25/22 06:26 Magnesium 1.9 mg/dL (1.6-2.4) 12/25/22 06:26 Total Bilirubin 0.6 mg/dL (0.2-1.0) 12/24/22 20:46 AST 14 U/L (15-37) L 12/24/22 20:46 ALT 20 U/L (13-56) 12/24/22 20:46 Alkaline Phosphatase 70 U/L (45-117) 12/24/22 20:46 Triglycerides 67 mg/dL (<150) 12/25/22 06:26 Cholesterol 139 mg/dL (<200) 12/25/22 06:26 HDL Cholesterol 52 mg/dL (40-60) 12/25/22 06:26 Cholesterol/HDL Ratio 2.67 12/25/22 06:26 Lipase 19 U/L (13-75) 12/24/22 20:46 Home Medications: Cetirizine HCl [Zyrtec] 10 mg PO DAILY 09/01/17 Albuterol Sulfate [Proair Hfa] 8.5 gm IH TID PRN #1 hfa.aer.ad 09/02/17 Fluticasone [Flonase 50MCG Nasal [place]*] 1 sprays NS DAILY #1 btl 09/02/17 Fluticasone/Salmeterol [Advair 250-50 Diskus] 1 each IH BID #1 blst.w.dev 09/02/17 predniSONE [Prednisone*] 20 mg PO DAILY #5 tab 09/02/17 Albuterol Neb [Proventil 0.083% Neb Soln] 2.5 mg NEB [id number] PRN #120 amp 12/25/22 Amox/Clavulanate [Augmentin 875-125 Tab] 1 each PO BID #20 tab 12/25/22 Azithromycin [Zithromax] 500 mg PO DAILY #5 tab 12/25/22 Nebulizer 1 each MC Q6H #1 ea 12/25/22 Oseltamivir [Tamiflu] 75 mg PO BID #8 cap 12/25/22 New Medications: Albuterol Neb [Proventil 0.083% Neb Soln] 2.5 mg NEB [id number] PRN #120 amp PRN Reason: Shortness Of Breath Amox/Clavulanate [Augmentin 875-125 Tab] 1 each PO BID #20 tab Nebulizer 1 each MC Q6H #1 ea Oseltamivir [Tamiflu] 75 mg PO BID #8 cap Azithromycin [Zithromax] 500 mg PO DAILY #5 tab Diet: AHA Activity: Ad joshua Followup: Adonay Schneider MD [ACTIVE - CAN ADMIT] - (Within 1 month.) OOT,OOT [Primary Care Provider] - Time spent managing pt's care (in minutes): 32
[2022-12-25 12:14] VITALS: BP 115/78; TEMP 98.1
[2022-12-25 13:52] VITALS: O2SAT 100
[2022-12-25] MEDS ORDERED: predniSONE 20 MG TAB PO SCH (21:00)
--- NOTE | 2022-12-27 18:47 | EKG ---
Test Date: 2022-12-24 Test Time: 19:04:30 [employer] Principal: [place] MEASUREMENT RESULTS: Intervals: Rate: 113 TX: 118 QRSD: 90 QT: 316 QTc: 433 [place]: P: 48 TX: 118 QRS: 16 T: 11 INTERPRETIVE STATEMENTS: Sinus tachycardia Nonspecific ST abnormality Abnormal ECG No previous ECG available for comparison Electronically Signed On 12-27-22 18:42:39 [employer] by Brock Cardenas
== END 2022-12-25 14:40 | disposition home or self-care (01) | DRG 871 ==
LOC: ER 17:26 → ERHOLD 20:13 → 2ND 21:04
PROVIDERS: ADMIT Internal Medicine; ATTEND Internal Medicine
DX: A41.89 Other specified sepsis (principal); J10.08 Influenza due to other identified influenza virus with other specified pneumonia; J15.9 Unspecified bacterial pneumonia; J45.901 Unspecified asthma with (acute) exacerbation; T38.0X5A Adverse effect of glucocorticoids and synthetic analogues, initial encounter; Z79.52 Long term (current) use of systemic steroids; Z91.048 Other nonmedicinal substance allergy status; Z79.899 Other long term (current) drug therapy; Z20.822 Contact with and (suspected) exposure to COVID-19
CPT/HCPCS: 0240U; 36415; 71045; 80048; 80061; 80076; 83605; 83690; 83735; 83880; 84100; 84443; 84484; 85025; 85610; 87040; 93005; 94760; 96374; 96375; 99285; J0456; J0696; J1650; J2920; J2930; J3480; J7030; J7040; J7050; J7614; J7644

== ENCOUNTER 2024-10-17 08:44 | Emergency (ER) | payer BC ==
--- OUTSIDE RECORDS SUMMARY | 2024-10-17 08:48 | XMS REPORT | Continuity of Care Document ---
Author Name Unknown Address [address] [facility] [address] [place] [address] [facility] thconnect Address [address] [facility]. [address] [place] [address] Care Team Providers Care Rnfa Name Role Phone Lizbeth Martinez MD Primary Care Physician [phone] Farheen Calle Attending Clinician Unavailable Mayito Syed Attending Clinician Melisa John Delgado Attending Clinician Unavailable CECIL AQUINO Attending Clinician Unavailable Cecil Aquino MD Attending Clinician [phone] Lily Ahmadi Attending Clinician Unavailable NITA MOBLEY Attending Clinician Unavailab Nita Mixon DO Attending Clinician [phone] Irene Mckoy Attending Clinician Unavail able LILY AHMADI Attending Clinician Unavailable Lizbeth Martinez Admitting Clinician UnavailNITA Raman Admitting Clinician Unavailab ulisses Physician, No Primary or Family Admitting Clinic dread Unavailable Payers Payer Name Policy Type Policy Number Effective Date Expirati on Date Source [facility] [id number] 2017 00:00:00 Problems Condition Name Condition Details Condition Category Status Onset Date Resolution Date Last Treatment Date Treating Clinician Comments Source Encounter for general counseling and advice on contracept ronnie management Encounter for general counseling and advice on contracept ronnie management Disease Active 2014-10 00:00: 00 [facility] Excessive hair on females Excessive hair on females Disease Active 2014-10 00:00: 00 [facility] Depo-Prove ra contracept ronnie status Depo-Prove ra contracept ronnie status Disease Active 02-13 00:00: 00 [facility] Asthma Asthma Disease Active 2012-10 00:00: 00 [facility] Allergies, Adverse Reactions, Alerts Allergy Name Allergy Type Status Severity Reaction(s) Onset Date Inactive Date Treating Clinician Comments Source iodine DA Active U RASH-HIVES 2023-10 2 00:00: 00 [facility] iodine DA Active U RASH-HIVES 05-23 00:00: 00 [facility] No Known Allergie s DA Active U 0 05-20 00:00: 00 [facility] No Known Allergie s DA Active U 05-24 00:00: 00 [facility] [place] No Known Allergie s DA Active U 05-24 00:00: 00 [facility] iodine DA Active SV 2018-10 015 00:00: 00 [facility] iodine DA Active SV THROAT CLOSING 2018-10 015 00:00: 00 [facility] No Known Allergie s DA Active U 24 00:00: 00 [facility] [place] Iodine Propensi ty to adverse reaction s Active Anaphylaxis 2012-10 00:00: 00 [facility] IODINE DRUG INGREDI Active Anaphylaxis 2012-10 00:00: 00 [facility] Social History Social Habit Start Date Stop Date Quantity Comments Source ASSERTION [facility] Exposure to SARS-CoV-2 (event) 2022-08-27 00:00:00 2022-09-06 07:50:00 Not sure [facility] Alcohol intake 2022-09-06 00:00:00 2022-09-06 00:00:00 Current non-drinker of alcohol (finding) [facility] Tobacco use and exposure 2013-08-24 00:00:00 2013-08-24 00:00:00 Smokeless tobacco non-user [facility] Sex Assigned At 1975 00:00:00 1975 00:00:00 [facility] Smoking Status Start Date Stop Date Source Never smoked tobacco [facility] Medications Ordered Medication Name Filled Medication Name Start Date Stop Date Current Medication? Ordering Clinician Indication Dosage Frequency Signature (SIG) Comments Components Source NaCl 0.9% (NS) bolus infusion 1,000 mL 04-01 09:45: 00 04-01 10:20 :00 No 1000mL at 999 mL/hr, 1,000 mL, IV Infusion, ONCE, 1 dose, On [place] 04/01/22 at 0445, [facility] ketorolac (TORADOL) injection 30 mg 04-01 09:45: 00 04-01 09:17 :00 No 30mg 30 mg, Slow IV Push, ONCE, 1 dose, On [place] 04/01/22 at 0445, [facility] ondansetron (ZOFRAN (PF)) injection 4 mg 04-01 09:45: 00 04-01 09:16 :00 No 4mg 4 mg, Slow IV Push, ONCE, 1 dose, On [place] 04/01/22 at 0445, [facility] ketorolac 10 mg tablet 04-01 00:00: 00 Yes [id number] 10mg Take 1 tablet by mouth every 6 (six) hours as needed for Pain (scale 1-3). [facility] ondansetron 4 mg disintegrat ing tablet 04-01 00:00: 00 Yes [id number] 4mg Take 1 tablet by mouth every 8 (eight) hours as needed for Nausea and Vomiting (N/V). [facility] tamsulosin 0.4 mg 24 hr capsule 2017-10 00:00: 00 Yes .4mg Take 1 capsule by mouth at bedtime. [facility] ketorolac 10 mg tablet 2017-10 00:00: 00 04-01 00:00 :00 No 10mg Take 1 tablet by mouth every 8 (eight) hours. [facility] ondansetron 4 mg disintegrat ing tablet 2017-10 00:00: 00 04-01 00:00 :00 No 4mg Take 1 tablet by mouth every 4 (four) hours as needed for Nausea and Vomiting (N/V). [facility] traMADOL 50 mg tablet 2017-10 00:00: 00 04-01 00:00 :00 No 50mg Take 1 tablet by mouth every 6 (six) hours as needed for Pain (scale 4-6). [facility] medroxyPROG ESTERone (DEPO-PROVE RA) injection 150 mg 2014-10 20:15: 00 Yes [id number] 150mg [facility] FLUoxetine (PROZAC) 20 mg capsule 03-13 00:00: 00 Yes [id number] 20mg Take 1 Cap by mouth daily. [facility] docusate calcium (SURFAK) 240 mg capsule 2012-10 00:00: 00 Yes 240mg Take 1 Cap by mouth once daily as needed for Constipati on. [facility] ferrous sulfate (IRON, FERROUS SULFATE,) 325 mg (65 mg iron) tablet 2012-10 00:00: 00 Yes 325mg Take 1 Tab by mouth daily. [facility] albuterol (VENTOLIN) 90 mcg/actuati on inhaler 2012-10 00:00: 00 Yes [id number] 2{puff} Inhale 2 Puffs every 6 (six) hours as needed for Wheezing or Shortness of Breath. [facility] Vital Signs Vital Name Observation Time Observation Value Comments S guillermo Systolic blood pressure 2022-09-06 13:59:00 129 mm[Hg] [facility] Diastolic blood pressure 2022-09-06 13:59:00 92 mm[Hg] [facility] Heart rate 2022-09-06 13:59:00 94 /min Unive [facility] Body temperature 2022-09-06 13:59:00 37.06 Dan[facility] Respiratory rate 2022-09-06 13:59:00 18 /min [facility] Body weight 2022-09-06 13:59:00 77.111 kg [facility] BMI 2022-09-06 13:59:00 27.44 kg/m2 [facility] Oxygen saturation in Arterial blood by Pulse oximetry 2022-09-06 13:59:00 100 /min [facility] Systolic blood pressure 2022-04-01 08:37:00 141 mm[Hg] [facility] Diastolic blood pressure 2022-04-01 08:37:00 86 mm[Hg] [facility] Heart rate 2022-04-01 08:37:00 87 /min [facility] Body temperature 2022-04-01 08:37:00 36.44 [facility] Respiratory rate 2022-04-01 08:37:00 18 /min [facility] Body height 2022-04-01 08:37:00 167.6 cm [facility] Body weight 2022-04-01 08:37:00 70.308 kg [facility] BMI 2022-04-01 08:37:00 25.02 kg/m2 [facility] Oxygen saturation in Arterial blood by Pulse oximetry 2022-04-01 08:37:00 100 /min [facility] Procedures Procedure Date / Time Performed Performing Clinicia n Source POCT TEST 2022-09-06 15:12:00 Cecil Aquino [facility] URINALYSIS 2022-09-06 14:35:00 [facility] RAPID INFLUENZA A/B 2022-09-06 14:29:00 Cecil Aquino [facility] CONSENT/REFUSAL FOR DIAGNOSIS AND TREATMENT 2022-09-06 13:52:46 Doctor Unassigned, [place] [facility] CT ABDOMEN PELVIS WO CONTRAST 2022-04-01 10:00:25 Nita Mobley [facility] POCT TEST 2022-04-01 09:23:00 Alyssia Mobley ra [facility] URINALYSIS 2022-04-01 09:21:00 [facility] METABOLIC PANEL (03037) 2022-04-01 09:20:00 Nita Mobley [facility] CBC WITH DIFF 2022-04-01 09:20:00 Nita Mobley U [facility] NOTICE OF PRIVACY PRACTICES 2022-04-01 08:33:51 Doctor Unassigned, [place] [facility] CONSENT/REFUSAL FOR DIAGNOSIS AND TREATMENT 2022-04-01 08:29:05 Doctor Unassigned, [place] [facility] Encounters Start Date/Time End Date/Time Encounter Type Admission Type Attending [facility] Care Department Encounter ID Source 2020-09-04 22:30:00 Inpatient HCAPM ANDREW [id number] [facility] 2024-10-03 17:11:00 2024-10-03 18:37:00 Emergency EM Farheen Calle [facility] [id number] [facility] 2024-05-23 11:02:00 2024-05-23 12:06:00 Emergency EM Mayito Syed [facility] [id number] [facility] 2024-05-20 16:17:00 2024-05-20 17:35:00 Emergency EM John Harden [facility] [id number] [facility] 2022-09-06 08:01:00 2022-09-06 09:33:00 Emergency X CECIL AQUINO [facility] ERT [id number] [facility] 2022-09-06 08:01:00 2022-09-06 09:33:00 Emergency Cecil Aquino [facility] [id number] [facility] 2022-04-19 08:00:00 2022-04-19 08:00:00 Outpatient Lily Gutiérrez [facility] [id number] [facility] [place] 2022-04-01 03:39:00 2022-04-01 06:55:00 Emergency X NITA MOBLEY [facility] ERT [id number] [facility] 2022-04-01 03:39:00 2022-04-01 06:55:00 Emergency Nita Mobley [facility] [id number] [facility] 2021-05-24 11:14:00 2021-05-24 12:37:00 Emergency EM Irene Mckoy [facility] 0725 [facility] [place] 2021-01-30 12:00:00 2021-01-30 12:00:00 Outpatient LILY GUTIÉRREZ [facility] [id number] [facility] [place] 2020-09-04 23:54:00 2020-09-04 23:54:00 Outpatient Irene Mckoy [facility] [id number] [facility] Results Test Description Test Time Test Comments Results Result Co mments Source LOC-[facility], [facility] [place], [address], - ct ABD PELVIS [id number] 17:21[facility]00 [facility] 1975 Sex: F Name: JEAN MCHUGH FSED : 1975 Age/S: 49 / F [address] [facility]. Unit #: [id number] Loc: [place] [address] Phys: John Harden MD Acct: [id number] Dis Date: Status: REG ER PHONE #: Exam Date: 05/20/2024 1706 FAX #: Reason: lower abdominal pain EXAMS: CPT CODE: [id number] CT ABD PELVIS W/CONT 05552 CLINICAL HISTORY: Lower abdominal pain, dysuria TECHNIQUE: Axial images of the abdomen and pelvis were obtained from diaphragm to the pubic symphysis with intravenous contrast. CT dose lowering technique utilized, with adjustment of MA/kV according to patient size and automated exposure control. DISCUSSION: The lung bases are clear. The heart size is normal. The liver is normal in size and contour, without focal abnormality. The gallbladder is unremarkable. No biliary ductal dilatation. The spleen, pancreas and adrenal glands are unremarkable. Both kidneys are normal in size. No hydronephrosis or enhancing renal mass. Vascular structures are normal in caliberand appearance. The small and large bowel are normal in caliber, with dense formed stool throughoutthe colon. No dilated or inflamed bowel loop. Appendix is normal. No abdominal, pelvic or retroperitoneal adenopathy. Uterus and adnexa appear normal. Urinary bladder is not well distended for assessment. No suspicious bony lesions. IMPRESSION: Mild to moderate diffuse constipation without dilatedor inflamed bowel loop. Otherwise negative CT abdomen and pelvis. at 1721 Reported and signed by: Ken Martinez M.D. PAGE 1 Signed Report (CONTINUED) Name: JEAN MCHUGH FSED : 1975 Age/S: 49 / F [address] [facility]. Unit #: [id number] Loc: [place] [address] Phys: John Harden MD Acct: [id number] Dis Date: Status: REG ER PHONE #: Exam Date: 05/20/2024 1706 FAX #: Reason: lower abdominal pain EXAMS: CPT CODE: [id number] CT ABD PELVIS W/CONT 93666 (Continued) CC: John Harden MD; Lizbeth Martinez MD Technologist:Maruks Lott RT(R)(CT) CTDI: DLP: Trnscb Date/Time: 05/20/2024 (172) [email or web address] Orig PrintD/T: S: 05/20/2024 (172) PAGE 2 Signed ReportCOMPLETE BLOOD COUNT (CBC)2024-05-20 17:10:00* Test Item Value Reference Range Interpretation Comme nts POC WHITE BLOOD CELL (test c ode = EDWBC) 5.5 10 3/uL 3.5-11.0 N POC RED BLOOD CELL (test cod e = EDRBC) 4.24 10 6/uL 3.43-5.21 N POC HEMOGLOBIN (test code = EDHGB) 12.4 g/dL 11.0-15.0 N POC HEMATOCRIT (test code = EDHCT) 36.8 % 37.0-47.0 L POC MEAN CELL VOLUME (test c ode = EDMCV) 86.8 fL 82.5-98.0 N POC MEAN CELL HEMOGLOBIN (te st code = EDMCH) 29.2 pg 26.1-32.9 N POC MEAN CELL HGB CONC (test code = EDMCHC) 33.7 g/dL 30.7-34.9 N POC PLATELET COUNT (test cod e = EDPLT) 307 10 3/uL 136-388 N POC RED CELL DISTRIB WIDTH ( test code = EDRDW-CV) 13.3 % 11.8-16.4 N POC LYMPHOCYTES % (test code = EDLYM%) 44.1 % 13.9-44.4 N POC MIXED CELLS % (test code = EDMXD%) 7.2 % 4.7-13.3 N POC NEUTROPHILS % (test code = EDNEUT%) 48.7 % 49.1-76.9 L POC LYMPHOCYTES # (test code = EDLYM#) 2.40 k/mm3 1.0-3.4 N POC MIXED CELLS # (test code = EDMXD#) 0.4 10 3/uL 0.3-1.1 N POC NEUTROPHILS # (test code = EDNEUT#) 2.70 10 3/uL 2.4-7.5 N POC MEAN PLATELET VOLUME (te st code = EDMPV) 9.5 fL 7.9-13.3 N [facility], [address] [place] [address], [address], POC HCG URINE, [id number] 16:35:00* Test Item Value Reference Range Interpretation Comme [facility] POC HCG URINE, QUALITATIVE ( test code = EDHCGU) Negative Negative LOC-[facility], [address] [place] [address], [facility], URINALYSIS [id number] 16:27:00* Test Item Value Reference Range Interpretation Comme [facility] POC URINE COLOR (test code = EDCOLU) Dark yellow Yellow A Substances that cause abnormal urine color may affect thereadability of test pads on the urinalysis reagent strips.These substances include visible levels of blood orbilirubin and drugs containing dyes, nitrofurantoin, orriboflavin. POC URINE CLARITY (test code = EDCLARITY) Slightly Cloudy Clear A POC URINE GLUCOSE (test code = EDGLUU) Negative Negative POC URINE BILIRUBIN (test code = EDBILIU) Negative Negative POC URINE KETONES (test code = EDKETU) Negative Negative POC URINE SPECIFIC GRAVITY (test code = EDSGU) >= 1.030 1.001-1.035 N POC URINE BLOOD (test code = EDBLDU) Trace-intact Negative A POC URINE pH (test code = EDPH) 6.0 5.0-8.0 N POC URINE PROTEIN (test code = EDPROTU) Negative Negative POC URINE UROBILINOGEN (test code = EDURO) 0.2 E.U/dL 0.2-1.0 POC URINE NITRITE (test code = EDNIT) Negative Negative POC URINE LEUKOCYTE ESTERASE (test code = EDLEUK) Negative Negative [facility], [address] [place] [address], [address], POCT [id number] 15:12:00* Test Item Value Reference Range Interpretation Comme [facility] POCT PREG (test code = 1605) NEGATIVE On board controls acceptable with C Line (test code = 3574) present POCT PREG LOT # (test code = 3575) [id number] POCT PREG TEST DATE ( test code = 3576) 2024-01-29 Lab Interpretation (test cod e = 90744-0) Normal [facility]. METABOLIC PANEL (92804)2022-04-01 09:43:50* Test Item Value Reference Range Interpretation Comme nts NA (test code = 8109485845) 140 mmol/L 135-145 K (test code = 5771350928) 3.6 mmol/L 3.5-5.0 CL (test code = 1153385172) 105 mmol/L 98-108 CO2 TOTAL (test code = 0857331595) 23 mmol/L 23-31 AGAP (test code = 9807367720) 2-16 BUN (test code = 4037070804) 14 mg/dL 7-23 GLUCOSE (test code = 3843908004) 152 mg/dL 70-110 H CREATININE (test code = 1776934125) 0.81 mg/dL 0.50-1.04 TOTAL BILI (test code = 9037563760) 0.3 mg/dL 0.1-1.1 CALCIUM (test code = 1891490545) 9.4 mg/dL 8.6-10.6 T PROTEIN (test code = 8402334054) 7.8 g/dL 6.3-8.2 ALBUMIN (test code = 3882968904) 4.7 g/dL 3.5-5.0 ALK PHOS (test code = 2763582563) 69 U/L 34-122 ALTv (test code = 1742-6) 12 U/L 5-35 AST(SGOT) (test code = 0161911095) 20 U/L 13-40 eGFR (test code = 3090392956) mL/min/1.73m2 GILLIAN (test code = GILLIAN) Association of [...] or abnormalities in imaging tests). Lab Interpretation (test code = 71402-3) Abnormal [facility] WITH [id number] 09:31:25* Test Item Value Reference Range Interpretation Comme nts WBC (test code = 6690-2) See_Comment [[employer]] The system which generated this result transmitted reference range: 4.30 - 11.10 10*3/?L. The reference range was not used to interpret this result as normal/abnormal. RBC (test code = 789-8) See_Comment L [[employer]] The system which generated this result transmitted reference range: 3.93 - 5.25 10*6/?L. The reference range was not used to interpret this result as normal/abnormal. HGB (test code = 718-7) 11.4 g/dL 11.6-15.0 L HCT (test code = 4544-3) 33.7 % 35.7-45.2 L MCV (test code = 787-2) 88.5 fL 80.6-95.5 MCH (test code = 785-6) 29.9 pg 25.9-32.8 MCHC (test code = 786-4) 33.8 g/dL 31.6-35.1 RDW-SD (test code = 75862-3) 39.5 fL 39.0-49.9 RDW-CV (test code = 788-0) 12.1 % 12.0-15.5 PLT (test code = 777-3) See_Comment [Automated messa ge] The system which generated this result transmitted reference range: 166 - 358 10*3/?L. The reference range was not used to interpret this result as normal/abnormal. MPV (test code = 06411-2) 9.2 fL 9.5-12.9 L NRBC/100 WBC (test code = 4191230374) See_Comment [Automated [employer] ssage] The system which generated this result transmitted reference range: 0.0 - 10.0 /100 WBCs. The reference range was not used to interpret this result as normal/abnormal. NRBC x10^3 (test code = 3226031736) <0.01 See_Comment [Automated messa ge] The system which generated this result transmitted reference range: 10*3/?L. The reference range was not used to interpret this result as normal/abnormal. GRAN MAT (NEUT) % (test code = 770-8) 77.0 % IMM GRAN % (test code = 7257417703) 0.20 % LYMPH % (test code = 736-9) 18.0 % MONO % (test code = 5905-5) 3.7 % EOS % (test code = 713-8) 0.9 % BASO % (test code = 706-2) 0.2 % GRAN MAT x10^3(ANC) (test code = 2031762766) 6.21 10*3/uL 1.88-7.09 IMM GRAN x10^3 (test code = 4309664170) <0.03 0.00-0.06 LYMPH x10^3 (test code = 731-0) 1.45 10*3/uL 1.32-3.29 MONO x10^3 (test code = 742-7) 0.30 10*3/uL 0.33-0.92 L EOS x10^3 (test code = 711-2) 0.07 10*3/uL 0.03-0.39 BASO x10^3 (test code = 704-7) <0.03 0.01-0.07 Lab Interpretation (test code = 78268-1) [facility] [id number] 09:23:00* Test Item Value Reference Range Interpretation Comme nts POCT PREG (test code = 1605) Negative On board controls acceptable with C Line (test code = 3574) Positive POCT PREG LOT # (test code = 3575) [id number] POCT PREG TEST DATE ( test code = 3576) 08/30/2023 Lab Interpretation (test cod e = 47529-3) [facility] C[facility] IF [id number] 12:28:00* Test Item Value Reference Range Interpretation Comme [...] Dysuria/FrequencyUA RFLX MICR CULT IF INDICATED 2021-05-24 12:28:00* Test Item Value Reference Range Interpretation Comme [...] UA CULTURE NEEDED? (test code = UACULT) Criteria Culture CHK Indication for culture: Dysuria/Frequency- CT NECK W/O [id number] 01:02:00[facility] 1975 Sex: F Name: JEAN MCHUGH [facility] : 1975 Age/S: 45 / F [address] [facility] [place] Unit #: [id number] Loc: [place] [address] Phys: Irene Mckoy MD Acct: [id number] Dis Date: Status: REG ER PHONE #: [phone] Exam Date: 09/05/2020 0048 FAX #: Reason: neck mass; eval for abscess EXAMS: CPT: [id number] CT NECK W/O CONTRAST [address]65 EXAM: - CT NECK W/O CONTRAST LOCATION: [...] FINDINGS: LIMITATION: Lack of intravenous contrast limits evaluationof the soft tissues and vessels. PARTIALLY IMAGED INTRACRANIAL STRUCTURES: No acute abnormality. MAS TOID AIR CELLS: Clear. ORBITS: Unremarkable. PARANASAL SINUSES: Clear. AERODIGESTIVE TRACT: Limitedevaluation without contrast. However, no gross masses demonstrated. The nasopharyngeal, oropharyngeal and hypopharyngeal airway are patent. LARYNX:Unremarkable. LYMPH NODES: No enlargement by CT criteria. SUBMANDIBULAR GLANDS: Symmetric in appearance without mass. PAROTID GLANDS: Symmetric in appearance without mass. THYROID GLAND: Homogeneous, normal in size. External soft tissue: There is moderate skin thickening and PAGE 1 Signed Report (CONTINUED) Name: [facility]UGH [facility]: 1975 Age/S: 45 / F [address] [address] [place] Unit #: [id number] Loc: [place] [address] Phys: Irene Mckoy MD Acct: [id number] Dis Date: Status: REG ER PHONE #: [phone] Exam Date: 09/05/2020 0048 FAX #: Reason: neck mass; eval for abscess EXAMS: CPT: [id number] CT NECK W/O [id number] (Continued) subcutaneous edema/fat stranding in the left lower [...] osseous structures are intact. IMPRESSION: 1. Edema andfat stranding in the left lateral neck centered at the level of the thyroid cartilage is likely dueto cellulitis. There is fascial thickening of the platysma muscle with thin nonorganized fluid deepto the muscle. No organized fluid collection is seen to suggest a drainable abscess. No retropharyngeal fluid collection. 2. No mass or adenopathy. at 0102 Reported and signed by: Alonso Bernal M.D. CC: Lizbeth Martinez MD; Irene Mckoy MD Technologist:[place]ster [place], RT(R) CTDI: DLP: Trnscb Date/Time: 09/05/2020 (101) [email or web address] Orig Print D/T: S: 09/05/2020 (104) PAGE 2 Signed ReportLACTIC ACID 2020-09-05 00:21:00* Test Item Value Reference Range Interpretation Comme nts LACTIC ACID (test code = LACT) 2.8 mmol/L 0.4-2.0 H HCG [id number] 00:18:00* Test Item Value Reference Range Interpretation Comme nts HCG SERUM (test code = HCG) < 1 mi-IU/ML 0-6 N 0 - 6 NOT PREGNA NT > 6 SUGGESTIVE OF EARLY RISES TWO FOLD EVERY 2 DAYS; SUGGEST RECONFIRMING AFTER 2 DAYS. 150,000-200,[address] TRIMESTER 10,000 - 50,000 2ND & 3RD TRIMESTER COMPREHENSIVE METABOLIC [id number] 00:11:00* Test Item Value Reference Range Interpretation Comme nts SODIUM (test code = NA) 139 mmol/L 134-147 N POTASSIUM (test code = K) 3.4 mmol/L 3.4-5.0 N CHLORIDE (test code = CL) 106 mmol/L 100-108 N CARBON DIOXIDE (test code = CO2) 29 mmol/L 21-32 N ANION GAP (test code = GAP) 4.0 GAP calc 4.0-15.0 N GLUCOSE (test code = GLU) 87 MG/DL 70-110 N BLOOD UREA NITROGEN (test code = BUN) 11 MG/DL 7-18 N GLOMERULAR FILTRATION RATE (test code = GFR) >=60 max estimate estGFR >60 CREATININE (test code = CREAT) 0.7 MG/DL 0.6-1.0 N TOTAL PROTEIN (test code = PROT) 8.0 G/DL 6.4-8.2 N ALBUMIN (test code = ALB) 3.6 G/DL 3.4-5.0 N GLOBULIN (test code = GLOB) 4.4 GM/dL ALBUMIN/GLOBULIN RATIO (test code = A/G) 0.8 RATIO 1.2-2.2 L CALCIUM (test code = CA) 8.8 MG/DL 8.5-10.1 N BILIRUBIN TOTAL (test code = BILT) 0.20 MG/DL 0.2-1.2 N SGOT/AST (test code = AST) 8 Unit/L 15-37 L SGPT/ALT (test code = ALT) 11 Unit/L 12-78 L ALKALINE PHOSPHATASE TOTAL (test code = ALKP) 82 Unit/L 45-117 N CBC W/AUTO [id number] 23:52:00* Test Item Value Reference Range Interpretation Comme nts WHITE BLOOD CELL (test code = WBC) 8.5 K/mm3 3.5-11.0 N RED BLOOD CELL (test code = RBC) 3.96 M/mm3 4.70-6.10 L HEMOGLOBIN (test code = HGB) 11.1 G/DL 10.4-14.9 N HEMATOCRIT (test code = HCT) 35.3 % 31.5-44.1 N MEAN CELL VOLUME (test code = MCV) 89.1 Fl 84.5-98.6 N MEAN CELL HGB (test code = MCH) 28.0 pg 27.0-34.2 N MEAN CELL HGB CONCETRATION (test code = MCHC) 31.4 G/DL 31.5-34.0 L RED CELL DISTRIBUTION WIDTH (test code = RDW) 13.1 SD 11.5-14.5 N PLATELET COUNT (test code = PLT) 366 K/mm3 150-450 N MEAN PLATELET VOLUME (test c ode = MPV) 8.70 fL 7.0-10.5 N NEUTROPHIL % (test code = NT%) 59.5 % 40-76 N IMMATURE GRANULOCYTE % (test code = IG%) 0.2 % 0.0-5.0 N LYMPHOCYTE % (test code = LY%) 28.5 % 20.5-51.1 N MONOCYTE % (test code = MO%) 6.2 % 1.7-9.3 N EOSINOPHIL % (test code = EO%) 5.2 % 0.0-6.0 N BASOPHIL % (test code = BA%) 0.4 % 0.0-2.0 N NUCLEATED RBC % (test code = NRBC%) 0.0 /100WBC% 0.0-1.0 N NEUTROPHIL # (test code = NT#) 5.1 K/mm3 1.8-7.6 N IMMATURE GRANULOCYTE # (test code = IG#) 0.02 x10 3/uL 0.00-0.03 N LYMPHOCYTE # (test code = LY#) 2.4 K/mm3 0.6-3.2 N MONOCYTE # (test code = MO#) 0.5 K/mm3 0.3-1.1 N EOSINOPHIL # (test code = EO#) 0.4 K/mm3 0.0-0.4 N BASOPHIL # (test code = BA#) 0.0 K/mm3 0.0-0.1 N NUCLEATED RBC # (test code = NRBC#) 0.0 K/mm3 0.0-0.1 N MANUAL DIFF REQUIRED (test c ode = MDIFF) NO DIFF/SCN CRITERIA UA RFLX MICR CULT IF [id number] 20:30:00* Test Item Value Reference Range Interpretation Comme nts UA COLOR (test code = COLU) YELLOW discript YEL/STRAW UA APPEARANCE (test code = APPU) CLEAR discript CLEAR UA GLUCOSE DIPSTICK (test code = DGLUU) [...] UA PROTEIN DIPSTICK (test code = PROU) TRACE mg/dL NEG A UA UROBILINIOGEN DIPSTICK (test code = URO) 4.0 mg/dL <2.0 A UA NITRITE DIPSTICK (test code = EVA) NEGATIVE SCREEN NEG UA LEUKOCYTE ESTERASE DIPSTICK (test code = LEUU) NEGATIVE Leuk/mcL NEGATIVE UA CULTURE NEEDED? (test code = UACULT) NO, WBC<10 Criteria Culture CHK SOURCE OF URINE: CLEAN CATCHIndication for culture: Suprapubic Pain Dysuria/FrequencyUR HCG [id number] 20:30:00* Test Item Value Reference Range Interpretation Comme nts UR HCG QUAL (test code = HCGQLU) NEGATIVE NEGATIVE SOURCE OF URINE: CLEAN CATCHIndication for culture: Suprapubic Pain Dysuria/FrequencyUA RFLX MICR CULT IF [id number] 20:29:00* Test Item Value Reference Range Interpretation Comme nts UA COLOR (test code = COLU) YELLOW discript YEL/STRAW UA APPEARANCE (test code = APPU) CLEAR discript CLEAR UA GLUCOSE DIPSTICK (test code = DGLUU) [...] UA PROTEIN DIPSTICK (test code = PROU) TRACE mg/dL NEG A UA UROBILINIOGEN DIPSTICK (test code = URO) 4.0 mg/dL <2.0 A UA NITRITE DIPSTICK (test code = EVA) NEGATIVE SCREEN NEG UA LEUKOCYTE ESTERASE DIPSTICK (test code = LEUU) NEGATIVE Leuk/mcL NEGATIVE UA CULTURE NEEDED? (test code = UACULT) Criteria Culture CHK SOURCE OF URINE: CLEAN CATCHIndication for culture: Suprapubic Pain Dysuria/FrequencyUR HCG [id number] 20:29:00* Test Item Value Reference Range Interpretation Comme nts UR HCG QUAL (test code = HCGQLU) NEGATIVE SOURCE OF URINE: CLEAN CATCHIndication for culture: Suprapubic Pain Dysuria/Frequency"
--- NOTE | 2024-10-17 09:48 | RAD REPORT ---
EXAMINATION: XR LEFT WRIST CLINICAL INDICATION: PAIN TECHNIQUE: Multiple projections of the left wrist were obtained. COMPARISON: No prior exam. FINDINGS: No bone or joint abnormality seen.
--- NOTE | 2024-10-17 09:59 | ER ---
Nurse's Notes [facility] Name: Alix Villasenor Age: 49 yrs Sex: Female : 1975 Arrival Date: 10/17/2024 Time: 08:44 Bed 11 Private MD: Diagnosis: Pain in left wrist Presentation: 10/17 08:57 Chief complaint: Patient states: picked up a bowling ball 2 weeks ago and hurt her left iw wrist , was seen at urgent care and was put on steroids, they gave me Toradol. Coronavirus screen: At this time, the client does not indicate any symptoms associated with coronavirus-19. Ebola Screen: No symptoms or risks identified at this time. Initial Sepsis Screen: Does the patient meet any 2 criteria? No. Patient's initial sepsis screen is negative. Does the patient have a suspected source of infection? No. Patient's initial sepsis screen is negative. Risk Assessment: Do you want to hurt yourself or someone else? Patient reports no desire to harm self or others. Onset of symptoms was October 03, 2024. 08:57 Method Of Arrival: Ambulatory iw 08:57 Acuity: DENNY 4 iw Historical: - Allergies: 08:58 Iodine; iw - PMHx: 08:58 allergies; abdominal hernia; Asthma; peptic ulcer; iw - Social history:: Smoking status: . Vital Signs: 08:57 BP 141 / 95; Pulse 92; Resp 16; Temp 98.1; Pulse Ox 100% on R/A; iw ED Course: 08:47 Patient arrived in ED. im 08:58 Triage completed. iw 08:59 Arm band placed on. iw 09:00 Nita Oliveros MD is Attending Physician. sw6 09:39 Wrist Left (3 View) XRAY In Process Unspecified. EDMS 09:51 Danielle Oliveros RN is Primary Nurse. iw Administered Medications: No medications were administered Outcome: 09:58 Discharge ordered by . sw6 10:33 Patient left the ED. iw Signatures: Dispatcher [employer] EDMS Danielle Oliveros, URBAN RN Audra Curiel Nita Oliveros MD MD sw6 Corrections: (The following items were deleted from the chart) 08:59 08:57 Chief complaint: Patient states: picked up a bowling ball 2 weeks ago and hurt iw her left wrist iw
--- NOTE | 2024-10-17 09:59 | EDPHYS ---
Physician Documentation [facility] Name: Alix Villasenor Age: 49 yrs Sex: Female : 1975 Arrival Date: 10/17/2024 Time: 08:44 Bed 11 Private MD: ED Physician Nita Oliveros HPI: 10/17 09:01 This 49 yrs old Black Female presents to ER via Ambulatory with complaints of Wrist sw6 Pain - left. 09:01 The patient or guardian reports pain. The complaints affect the left wrist diffusely. sw6 Context: The problem was sustained at a While bowling. Onset: The symptoms/episode began/occurred 2 week(s) ago. Modifying factors: The symptoms are alleviated by holding still, the symptoms are aggravated by movement. Associated signs and symptoms: The patient has no apparent associated signs or symptoms. Compartment Syndrome negative for numbness, tingling, positive for pain. The patient has not experienced similar symptoms in the past. The patient has been recently seen at an urgent care, this week. the patient c/o left wrist pain for about 2 weeks since she went bowling. is right handed. seen at urgent care last week and given toradol but states not helping. no xray done. pain worse with movement and better when still. no meds for sx today. . Historical: - Allergies: 08:58 Iodine; iw - PMHx: 08:58 allergies; abdominal hernia; Asthma; peptic ulcer; iw - Social history:: Smoking status: . ROS: 09:01 Constitutional: Negative for fever, chills, and weight loss, Cardiovascular: Negative sw6 for chest pain, palpitations, and edema, Respiratory: Negative for shortness of breath, cough, wheezing, and pleuritic chest pain, Abdomen/GI: Negative for abdominal pain, nausea, vomiting, diarrhea, and constipation, Back: Negative for injury and pain, Skin: Negative for injury, rash, and discoloration, 09:01 MS/extremity: Positive for pain, Exam: 09:01 Hand exam: ROM: limited active range of motion due to pain, in the , Circulation is sw6 intact in all extremities. sensation intact. Compartment Syndrome exam of affected extremity: no severe pain, no numbness, no tingling, no sensation deficit, no palor, no weak pulses, 09:01 Constitutional: The patient appears in no acute distress, alert, awake, 09:01 Eyes: Exam is negative for acute changes, 09:01 Cardiovascular: Rate: normal, 09:01 Respiratory: the patient does not display signs of respiratory distress, 09:01 Abdomen/GI: Inspection: abdomen appears normal, 09:01 Skin: Appearance: normal except for affected area, 09:59 Constitutional: This is a well developed, well nourished patient who is awake, alert, sw6 and in no acute distress. Vital Signs: 08:57 BP 141 / 95; Pulse 92; Resp 16; Temp 98.1; Pulse Ox 100% on R/A; iw MDM: 09:21 Differential diagnosis: dislocation, closed fracture, contusion, tendonitis. 09:57 Data reviewed: vital signs, nurses notes, radiologic studies, plain films. 09:58 Medical Screening Exam initiated 10/17 09:01 Order name: Wrist Left (3 View) XRAY; Complete Time: 09:56 Administered Medications: No medications were administered Disposition Summary: 10/17/24 09:58 Discharge Ordered Notes: Location: Home sw6 Condition: Stable sw6 Diagnosis - Pain in left wrist sw6 Followup: sw6 - With: Private Physician - When: As needed - Reason: Discharge Instructions: - Discharge Summary Sheet sw6 - Wrist Pain, Adult sw6 - RICE Therapy for Routine Care of Injuries, [id number] sw6 - Wrist Pain, Adult, [id number] sw6 Forms: - Work release form iw - Medication Reconciliation Form sw6 - Antibiotic Education sw6 - Prescription Opioid Use sw6 - Patient Portal Instructions 6 - Leadership Thank You Letter 6 Signatures: Dispatcher [employer] Danielle Pena, RN RN Nita Amanda MD MD sw6
[2024-10-17 10:55] VITALS: BP 141/95; TEMP 98.1; O2SAT 100
== END 2024-10-17 10:33 | disposition home or self-care (01) ==
LOC: ER 08:44
DX: M25.532 Pain in left wrist (principal); J45.909 Unspecified asthma, uncomplicated; Z91.048 Other nonmedicinal substance allergy status
CPT/HCPCS: 99281

== ENCOUNTER 2025-08-01 07:37 | Emergency (ER) | payer BC ==
--- OUTSIDE RECORDS SUMMARY | 2025-08-01 07:42 | XMS REPORT | Continuity of Care Document ---
Author Name Unknown Address [address] [place] [address] [facility] Address [address] [place] [address] Care Team Providers Care Care Navigator Name Role Phone Lizbeth Martinez MD Primary Care Physician Farheen Calle Attending Clinician Unavailable Mayito Syed A Attending Clinician Melisa vailable John Harden Attending Clinician Unavailable CECIL AQUINO Attending Clinician Unavailable Cecil Aquino MD Attending Clinician [phone] Lily Ahmadi Attending Clinician Unavailable NITA MOBLEY Attending Clinician Unavailab Nita Mixon DO Attending Clinician [phone] Irene Mckoy Attending Clinician Unavail able LILY AHMADI Attending Clinician Unavailable Lizbeth Martinez Admitting Clinician UnavailNITA Raman Admitting Clinician Unavailab ulisses Physician, No Primary or Family Admitting Clinic dread Unavailable Payers Payer Name Policy Type Policy Number Effective Date Expirati on Date Source [facility] [id number] 2017 00:00:00 Problems Condition Name Condition Details Condition Category Status Onset Date Resolution Date Last Treatment Date Treating Clinician Comments Source Encounter for general counseling and advice on contracept ronnie management Encounter for general counseling and advice on contracept ronnie management Disease Active 2014-10 00:00: 00 [facility] Excessive hair on females Excessive hair on females Disease Active 2014-10 00:00: 00 [facility] Depo-Prove ra contracept ronnie status Depo-Prove ra contracept ronnie status Disease Active 416 00:00: 00 [facility] Asthma Asthma Disease Active 2012-10 0 00:00: 00 [facility] Allergies, Adverse Reactions, Alerts Allergy Name Allergy Type Status Severity Reaction(s) Onset Date Inactive Date Treating Clinician Comments Source iodine DA Active U RASH-HIVES 2023-10 00:00: 00 [facility] iodine DA Active U RASH-HIVES 05-23 00:00: 00 [facility] No Known Allergie s DA Active U 05-20 00:00: 00 [facility] No Known Allergie s DA Active U 05-24 00:00: 00 [facility] No Known Allergie s DA Active U 05-24 00:00: 00 [facility] iodine DA Active SV 2018-10 015 00:00: 00 [facility] iodine DA Active SV THROAT CLOSING 2018-10 015 00:00: 00 [facility] No Known Allergie s DA Active U 3-24 00:00: 00 [facility] Iodine Propensi ty to adverse reaction s Active Anaphylaxis 2012-10 0 00:00: 00 [facility] IODINE DRUG INGREDI Active Anaphylaxis 2012-10 00:00: 00 [facility] Social History Social Habit Start Date Stop Date Quantity Comments Source ASSERTION [facility] Exposure to SARS-CoV-2 (event) 2022-08-27 00:00:00 2022-09-06 07:50:00 Not sure [facility] Alcohol intake 2022-09-06 00:00:00 2022-09-06 00:00:00 Current non-drinker of alcohol (finding) [facility] Tobacco use and exposure 2013-08-24 00:00:00 2013-08-24 00:00:00 Smokeless tobacco non-user [facility] Sex Ass[birth year] At 1975 00:00:00 1975 00:00:00 [facility] Smoking Status Start Date Stop Date Source Never smoked tobacco [facility] Medications Ordered Medication Name Filled Medication Name Start Date Stop Date Current Medication? Ordering Clinician Indication Dosage Frequency Signature (SIG) Comments Components Source NaCl 0.9% (NS) bolus infusion 1,000 mL 04-01 09:45: 00 04-01 10:20 :00 No 1000mL at 999 mL/hr, 1,000 mL, IV Infusion, ONCE, 1 dose, On Layne 04/01/22 at 0445, [facility] ketorolac (TORADOL) injection 30 mg 04-01 09:45: 00 04-01 09:17 :00 No 30mg 30 mg, Slow IV Push, ONCE, 1 dose, On Layne 04/01/22 at 0445, [facility] ondansetron (ZOFRAN (PF)) injection 4 mg 04-01 09:45: 00 04-01 09:16 :00 No 4mg 4 mg, Slow IV Push, ONCE, 1 dose, On Layne 04/01/22 at 0445, [facility] ketorolac 10 mg tablet 04-01 00:00: 00 Yes [id number] 10mg Take 1 tablet by mouth every 6 (six) hours as needed for Pain (scale 1-3). [facility] ondansetron 4 mg disintegrat ing tablet 04-01 00:00: 00 Yes [id number] 4mg Take 1 tablet by mouth every 8 (eight) hours as needed for Nausea and Vomiting (N/V). [facility] tamsulosin 0.4 mg 24 hr capsule 2017-10 00:00: 00 Yes .4mg Take 1 capsule by mouth at bedtime. [facility] ketorolac 10 mg tablet 2017-10 00:00: 00 04-01 00:00 :00 No 10mg Take 1 tablet by mouth every 8 (eight) hours. [facility] ondansetron 4 mg disintegrat ing tablet 2017-10 00:00: 00 04-01 00:00 :00 No 4mg Take 1 tablet by mouth every 4 (four) hours as needed for Nausea and Vomiting (N/V). [facility] traMADOL 50 mg tablet 2017-10 00:00: 00 04-01 00:00 :00 No 50mg Take 1 tablet by mouth every 6 (six) hours as needed for Pain (scale 4-6). [facility] medroxyPROG ESTERone (DEPO-PROVE RA) injection 150 mg 2014-10 20:15: [id number] [facility] FLUoxetine (PROZAC) 20 mg capsule 03-13 00:00: 00 Yes [id number] 20mg Take 1 Cap by mouth daily. [facility] docusate calcium (SURFAK) 240 mg capsule 2012-10 00:00: 00 Yes 240mg Take 1 Cap by mouth once daily as needed for Constipati on. [facility] ferrous sulfate (IRON, FERROUS SULFATE,) 325 mg (65 mg iron) tablet 2012-10 00:00: 00 Yes 325mg Take 1 Tab by mouth daily. [facility] albuterol (VENTOLIN) 90 mcg/actuati on inhaler 2012-10 00:00: 00 Yes [id number] 2{puff} Inhale 2 Puffs every 6 (six) hours as needed for Wheezing or Shortness of Breath. [facility] Vital Signs Vital Name Observation Time Observation Value Comments Emma li Systolic blood pressure 2022-09-06 13:59:00 129 mm[Hg] [facility] Diastolic blood pressure 2022-09-06 13:59:00 92 mm[Hg] [facility] Heart rate 2022-09-06 13:59:00 94 /min [facility] Body temperature 2022-09-06 13:59:00 37.06 [facility] Respiratory rate 2022-09-06 13:59:00 18 /min [facility] Body weight 2022-09-06 13:59:00 77.111 kg [facility] BMI 2022-09-06 13:59:00 27.44 kg/m2 [facility] Oxygen saturation in Arterial blood by Pulse oximetry 2022-09-06 13:59:00 100 /min [facility] Systolic blood pressure 2022-04-01 08:37:00 141 mm[Hg] [facility] Diastolic blood pressure 2022-04-01 08:37:00 86 mm[Hg] [facility] Heart rate 2022-04-01 08:37:00 87 /min [facility] Body temperature 2022-04-01 08:37:00 36.44 Dania [facility] Respiratory rate 2022-04-01 08:37:00 18 /min [facility] Body height 2022-04-01 08:37:00 167.6 cm [facility] Body weight 2022-04-01 08:37:00 70.308 kg [facility] BMI 2022-04-01 08:37:00 25.02 kg/m2 [facility] Oxygen saturation in Arterial blood by Pulse oximetry 2022-04-01 08:37:00 100 /min [facility] Procedures Procedure Date / Time Performed Performing Clinicia n Source POCT TEST 2022-09-06 15:12:00 Cecil Aquino [facility] URINALYSIS 2022-09-06 14:35:00 Cecil Aquino [facility] RAPID INFLUENZA A/B 2022-09-06 14:29:00 Cecil Aquino [facility] CONSENT/REFUSAL FOR DIAGNOSIS AND TREATMENT 2022-09-06 13:52:46 Doctor Unassigned, [facility] CT ABDOMEN PELVIS WO CONTRAST 2022-04-01 10:00:25 Nita Mobley [facility] POCT TEST 2022-04-01 09:23:00 Alyssia Mobely ra [facility] URINALYSIS 2022-04-01 09:21:00 [facility] METABOLIC PANEL (60315) 2022-04-01 09:20:00 Nita Mobley [facility] CBC WITH DIFF 2022-04-01 09:20:00 Nita Mobley U [facility] NOTICE OF PRIVACY PRACTICES 2022-04-01 08:33:51 Doctor Unassigned, [facility] CONSENT/REFUSAL FOR DIAGNOSIS AND TREATMENT 2022-04-01 08:29:05 Doctor Unassigned, [facility] Encounters Start Date/Time End Date/Time Encounter Type Admission Type Attending [facility] Facility Care Department Encounter ID Source 2020-09-04 22:30:00 Inpatient [facility]CAPM ANDREW [id number] [facility] 2024-10-03 17:11:00 2024-10-03 18:37:00 Emergency EM Farheen Calle [facility] [id number] [facility] 2024-05-23 11:02:00 2024-05-23 12:06:00 Emergency EM Mayito Syed [facility] [id number] [facility] 2024-05-20 16:17:00 2024-05-20 17:35:00 Emergency EM John Harden [facility] [id number] [facility] 2022-09-06 08:01:00 2022-09-06 09:33:00 Emergency X CECIL AQUINO [facility] ERT [id number] [facility] 2022-09-06 08:01:00 2022-09-06 09:33:00 Emergency Cecil Aquino [facility] [id number] [facility] 2022-04-19 08:00:00 2022-04-19 08:00:00 Outpatient Lily Gutiérrez [facility] [id number] [facility] 2022-04-01 03:39:00 2022-04-01 06:55:00 Emergency Cathy NITA MOBLEY [facility] ERT [id number] [facility] 2022-04-01 03:39:00 2022-04-01 06:55:00 Emergency Nita Mobley [facility] [id number] [facility] 2021-05-24 11:14:00 2021-05-24 12:37:00 Emergency EM Irene Mckoy [facility] [id number] [facility] 2021-01-30 12:00:00 2021-01-30 12:00:00 Outpatient LILY GUTIÉRREZ [facility] [id number] [facility] 2020-09-04 23:54:00 2020-09-04 23:54:00 Outpatient Karen Mckoyace [facility] [id number] [facility] Results Test Description Test Time Test Comments Results Result Co mments Source LOC-[facility], [address] [place] [address], [address], - ct ABD PELVIS [id number] 17:21:00 [facility] 1975 Sex: F Name: JEAN MCHUGH FSED : 1975 Age/S: 49 / F [address] [facility] Unit #: [id number] Loc: [place] [address] Phys: John Harden MD Acct: [id number] Dis Date: Status: REG ER PHONE #: Exam Date: 05/20/2024 1706 FAX #: Reason: lower abdominal pain EXAMS: CPT CODE: [id number] CT ABD PELVIS W/CONT [address] CLINICAL HISTORY: Lower abdominal pain, dysuria TECHNIQUE: [...] focal abnormality. The gallbladder is unremarkable. No bi liary ductal dilatation. The spleen, pancreas and adrenal glands are unremarkable. Both kidneys arenormal in size. No hydronephrosis or enhancing renal mass. Vascular structures are normal in caliber and appearance. The small and large bowel are normal in caliber, with dense formed stool throughout the colon. No dilated or inflamed bowel loop. Appendix is normal. No abdominal, pelvic or retroperitoneal adenopathy. Uterus and adnexa appear normal. Urinary bladder is not well distended for assessment. No suspicious bony lesions. IMPRESSION: Mild to moderate diffuse constipation without dilated or inflamed bowel loop. Otherwise negative CT abdomen and pelvis. at 1721 Reported and signed by: Ken Martinez M.D. PAGE 1 Signed Report (CONTINUED) Name: JEAN MCHUGH FSED : 1975 Age/S: 49 / F [address] [facility] Unit #: [id number] Loc: [place] [address] Phys: John Harden MD Acct: [id number] Dis Date: S tatus: REG ER PHONE #: Exam Date: 05/20/2024 1706 FAX #: Reason: lower abdominal pain EXAMS: CPT CODE: [id number] CT ABD PELVIS W/CONT 83183 (Continued) CC: John Harden MD; Lizbeth Martinez MD Technologist:Markus Lott RT(R)(CT) CTDI: DLP: Trnscb Date/Time: 05/20/2024 (172) [email or web address] Orig Print D/T: S: 05/20/2024 (0312) PAGE 2 Signed ReportCOMPLETE BLOOD COUNT (CBC)2024-05-20 [...] code = EDMPV) 9.5 fL 7.9-13.3 N [facility], [address] [place] [address], [address], POC HCG URINE, [id number] 16:35:00* Test Item Value Reference Range Interpretation Comme [facility] POC HCG URINE, QUALITATIVE ( test code = EDHCGU) Negative Negative [facility], [address] [place] [address], [address], URINALYSIS [id number] 16:27:00* Test Item Value Reference Range Interpretation Comme [facility] POC URINE COLOR (test code = EDCOLU) [...] ESTERASE (test code = EDLEUK) Negative Negative [facility], [address] [place] [address], [address], POCT [id number] 15:12:00* Test Item Value Reference Range Interpretation Comme nts POCT PREG (test code = 1605) NEGATIVE On board controls acceptable with C Line (test code = 3574) present POCT PREG LOT # (test code = 3577) [id number] POCT PREG TEST DATE ( test code = 3576) 2024-01-29 Lab Interpretation (test cod e = 57541-2) Normal [facility]. METABOLIC PANEL (87671)2022-04-01 09:43:50* Test Item Value Reference Range Interpretation Comme nts NA (test code = 2326006804) 140 mmol/L 135-145 K (test code = 7096965726) 3.6 mmol/L 3.5-5.0 CL (test code = 9927139956) 105 mmol/L 98-108 CO2 TOTAL (test code = 8761936589) 23 mmol/L 23-31 AGAP (test code = 3846678231) 2-16 BUN (test code = 4965712451) 14 mg/dL 7-23 GLUCOSE (test code = 6213246489) 152 mg/dL 70-110 H CREATININE (test code = 1379519704) 0.81 mg/dL 0.50-1.04 TOTAL BILI (test code = 5675695526) 0.3 mg/dL 0.1-1.1 CALCIUM (test code = 1900167486) 9.4 mg/dL 8.6-10.6 T PROTEIN (test code = 5836599170) 7.8 g/dL 6.3-8.2 ALBUMIN (test code = 1518549928) 4.7 g/dL 3.5-5.0 ALK PHOS (test code = 2049068939) 69 U/L 34-122 ALTv (test code = 1742-6) 12 U/L 5-35 AST(SGOT) (test code = 0144986187) 20 U/L 13-40 eGFR (test code = 3996827555) mL/min/1.73m2 GILLIAN (test code = GILLIAN) Association [...] imaging tests). Lab Interpretation (test code = 15476-7) Abnormal [facility] WITH [id number] 09:31:25* Test Item Value Reference Range Interpretation Comme nts WBC (test code = 6690-2) See_Comment [Automated [facility]] The system which generated this result transmitted reference range: 4.30 - 11.10 10*3/?L. The reference range was not used to interpret this result as normal/abnormal. RBC (test code = 789-8) See_Comment L [Automated [facility]] The system which generated this result transmitted [...] 33.8 g/dL 31.6-35.1 RDW-SD (test code = 98670-8) 39.5 fL 39.0-49.9 RDW-CV (test code = 788-0) 12.1 % 12.0-15.5 PLT (test code = 777-3) See_Comment [Automated [employer]] The system which generated this result transmitted reference range: 166 - 358 10*3/?L. The reference range was not used to interpret this result as normal/abnormal. MPV (test code = 70624-7) 9.2 fL 9.5-12.9 L NRBC/100 WBC (test code = 8454566872) See_Comment [Automated [employer] ssage] The system which generated this result transmitted reference range: 0.0 - 10.0 /100 WBCs. The reference range was not used to interpret this result as normal/abnormal. NRBC x10^3 (test code = 8043575211) <0.01 See_Comment [Automated [employer]] The system which generated this result transmitted reference range: 10*3/?L. The reference range was not used to interpret this result as normal/abnormal. GRAN MAT (NEUT) % (test code = 770-8) 77.0 % IMM GRAN % (test code = 3125375348) 0.20 % LYMPH % (test code = 736-9) 18.0 % MONO % (test code = 5905-5) 3.7 % EOS % (test code = 713-8) 0.9 % BASO % (test code = 706-2) 0.2 % GRAN MAT x10^3(ANC) (test code = 8043984150) 6.21 10*3/uL 1.88-7.09 IMM GRAN x10^3 (test code = 3159362589) <0.03 0.00-0.06 LYMPH x10^3 (test code = 731-0) 1.45 10*3/uL 1.32-3.29 MONO x10^3 (test code = 742-7) 0.30 10*3/uL 0.33-0.92 L EOS x10^3 (test code = 711-2) 0.07 10*3/uL 0.03-0.39 BASO x10^3 (test code = 704-7) <0.03 0.01-0.07 Lab Interpretation (test code = 63741-0) [id number] 09:23:00* Test Item Value Reference Range Interpretation Comme nts POCT PREG (test code = 1605) Negative On board controls acceptable with C Line (test code = 3574) Positive POCT PREG LOT # (test code = 3575) [id number] POCT PREG TEST DATE ( test code = 3576) 08/30/2023 Lab Interpretation (test cod e = 04677-4) [facility] CULT IF [id number] 12:28:00* Test Item Value Reference Range Interpretation [...] Indication for culture: Dysuria/Frequency- CT NECK W/O [id number] 01:02:00[facility] 1975 Sex: F Name: JEAN MCHUGH [facility] : 1975 Age/S: 45 / F [address] [facility] [place] Unit #: [id number] Loc: [place] [address] Phys: Irene Mckoy MD Acct: [id number] Dis Date: Status: REG ER PHONE #: [phone] Exam Date: 09/05/2020 0048 FAX #: Reason: neck mass; eval for abscess EXAMS: CPT: [id number] CT NECK W/O CONTRAST 00108 EXAM: - CT NECK W/O CONTRAST LOCATION: [...] PARTIALLY IMAGED INTRACRANIAL STRUCTURES: No acute abnormality. M ASTOID AIR CELLS: Clear. ORBITS: Unremarkable. PARANASAL SINUSES: [...] Signed Report (CONTINUED) Name: JEAN MCHUGH [facility] : 1975 Age/S: 45 / F [address] [address] [place] Unit #: [id number] Loc: [place] [address] Phys:Irene Mckoy MD Acct: [id number] Dis Date: Status: REG ER PHONE #: [phone] Exam Date: 09/05/2020 0048 FAX #: Reason: neck mass; eval for abscess EXAMS: CPT: [id number] CT NECK W/O CONTRAST [address] (Continued) subcutaneous edema/fat stranding in the left lower neck at the level of the t hyroid cartilage. This is compatible with cellulitis. There [...] of the platysma muscle with thin nonorganized fluiddeep to the muscle. No organized fluid collection is seen to suggest a drainable abscess. No retropharyngeal fluid collection. 2. No mass or adenopathy. at 0102 Reported and signed by: Alonso Bernal M.D. CC: Lizbeth Martinez MD; Irene Davis MD Technologist:Chester Hall RT(R) CTDI: DLP: Trnscb Date/Time: 09/05/2020 (101) [email or web address] Orig Print D/T: S: 09/05/2020 (104) PAGE 2 Signed ReportLACTIC ACID 2020-09-05 00:21:00* Test Item Value Reference Range Interpretation Comme nts LACTIC ACID (test code = LACT) 2.8 mmol/L 0.4-2.0 H HCG [id number] 00:18:00* Test Item Value Reference Range Interpretation Comme nts HCG SERUM (test code = HCG) < 1 mi-IU/ML 0-6 N 0 - 6 NOT PREGNA NT > 6 SUGGESTIVE OF EARLY RISES TWO FOLD EVERY 2 DAYS; SUGGEST RECONFIRMING AFTER 2 DAYS. 150,000-200,[address] TRIMESTER 10,000 - 50,000 2ND & 3RD TRIMESTER COMPREHENSIVE METABOLIC [id number] 00:11:00* Test Item Value Reference Range Interpretation [...] ALKP) 82 Unit/L 45-117 N CBC W/AUTO [id number] 23:52:00* Test Item Value Reference Range Interpretation [...] DIFF/SCN CRITERIA UA RFLX MICR CULT IF [id number] 20:30:00* Test Item Value Reference Range Interpretation [...] CATCHIndication for culture: Suprapubic Pain Dysuria/FrequencyUR HCG [id number] 20:30:00* Test Item Value Reference Range Interpretation Comme nts UR HCG QUAL (test code = HCGQLU) NEGATIVE NEGATIVE SOURCE OF URINE: CLEAN CATCHIndication for culture: Suprapubic Pain Dysuria/FrequencyUA RFLX MICR CULT IF [id number] 20:29:00* Test Item Value Reference Range Interpretation [...] CATCHIndication for culture: Suprapubic Pain Dysuria/FrequencyUR HCG [id number] 20:29:00* Test Item Value Reference Range Interpretation Comme nts UR HCG QUAL (test code = HCGQLU) NEGATIVE SOURCE OF URINE: CLEAN CATCHIndication for culture: Suprapubic Pain Dysuria/Frequency Notes Date/Time Note Provider Source 2024-10-03 18:00:00 [facility] EMERGENCY PROVIDER REPORT REPORT#:[id number] REPORT STATUS: Signed DATE:10/03/24 TIME: 1800 PATIENT: JEAN MCHUGH UNIT #: [id number] ROOM/BED: : 77 AGE: 49 SEX:F PCP PHYS: Lizbeth Martinez MD SERVICE AUTHOR: Farheen Calle DO REP SRV REP SRV TM: 1800 * ALL edits or amendments must be made on the electronic/computer document * HPI-Hand Prob/Inj General Initial Greet Date/Time 10/03/24 1724 Presentation Chief Complaint Hand pain L Free Text HPI Notes Free Text HPI Notes Pt is a 49-year-old female who presents to the emergency department with chief complaint of left wrist pain for a week. Denies trauma. Patient denies fever chills cough congestion nausea vomiting or diarrhea or sick contacts. ROS Constitutional: [Patient denies recent illness fever chills] Musculoskeletal: Reports left wrist pain Pulm: [pt denies cough, dyspnea] Chest: [pt denies chest pain, palpitations] Lymph: [Patient denies palpable lymph nodes or ankle swelling] GI: [Patient denies abdominal pain, nausea, vomiting, diarrhea and black stools] : [Patient denies problems with urination] Eyes: [Patient denies problems with vision] HEENT: [Patient denies sore throat, difficulty swallowing] Skin: [Patient denies rash, redness] Endo: [Patient denies recent weight change] Neuro:[Patient denies headache or syncope] Psych: [Patient denies anxiety or depression, denies SI] All other systems reviewed and negative PHYSICAL EXAM General: [patient in no acute distress, appears stated age] HEENT:[Normocephalic, atraumatic, nares are patent bilaterally, pupils are equal round reactive to light and accommodation intact] Neck: [Trachea is midline, no JVD present, no subcutaneous emphysema] Chest: [Breath sounds are present in all no, no wheezes rales or rhonchi, equal excursion normal respiratory effort] Cardiovascular:[Regular rate and rhythm with no rubs murmurs or gallops, ] Extremities: [Normal range of movement active and passive, 2+ pulses in all extremities, no edema, normal color] Neuro: [Cranial nerves II through XII grossly intact, patient able to move all extremities, no focal neuro deficits] Psych: [Appropriate mood and affect] Back: [No vertebral tenderness, no CVA tenderness] Abdomen: [Abdomen is soft non-tender non-distended, no pulsatile masses, no abdominal bruits, normal bowel sounds] Past Medical History - Adult Stated Complaint LEFT WRIST PAIN FOR 1 WEEK Allergies Coded Allergies: iodine (RASH-HIVES 10/03/24) Home Medications Active Scripts POLYETHYLENE GLYCOL 3350 (MIRALAX) 17 GM PO DAILY POLYETHYLENE GLYCOL 3350 (MIRALAX) 17 GM PO DAILY #30 PACKET Prov: 05/20/24 methylPREDNISolone (MEDROL 4 MG DOSEPAK) 4 MG PO ASDIR methylPREDNISolone (MEDROL 4 MG DOSEPAK) 4 MG PO ASDIR #1 PACKET Prov: 05/24/21 predniSONE 50 MG PO DAILY predniSONE 50 MG PO DAILY #5 TABS Prov: 05/23/24 Reported Medications CETIRIZINE (ZyrTEC) [BROMFED DM] 10 ML PO QID PRN COUGH Calculated Suicide Risk (nurs) No risk Past Medical History: Reports: Asthma. Alcohol Use Denies EtOH use Smoking status for patients 13 years old or older: Never Smoker Physical Exam Vital Signs Vital Signs First Documented: Result Date Time Pulse Ox 100 10/03 1712 B/P 175/90 10/03 1712 B/P Mean 118 10/03 1712 O2 Delivery Room air 10/03 1712 Temp 36.7 10/03 171 Pulse 96 10/03 171 Resp 16 10/03 171 Last Documented: Result Date Time Pulse Ox 100 10/03 1712 B/P 175/90 10/03 1712 B/P Mean 118 10/03 1712 O2 Delivery Room air 10/03 1712 Temp 36.7 10/03 171 Pulse 96 10/03 171 Resp 16 10/03 171 Review of Vital Signs Reviewed Patient Discharge Departure Vital Signs/Condition Vital Signs First Documented: Result Date Time Pulse Ox 100 10/03 1712 B/P 175/90 10/03 1712 B/P Mean 118 10/03 1712 O2 Delivery Room air 10/03 1712 Temp 36.7 10/03 1712 Pulse 96 10/03 1712 Resp 16 10/03 171 Last Documented: Result Date Time Pulse Ox 100 10/03 1712 B/P 175/90 10/03 1712 B/P Mean 118 10/03 1712 O2 Delivery Room air 10/03 1712 Temp 36.7 10/03 1712 Pulse 96 10/03 171 Resp 16 10/03 171 All vital signs available at the time of this entry have been reviewed. Clinical Impression Clinical Impression Primary Impression: Hand pain, left Disposition Decision Discharge )( Discharged to Home Yes )( Time 1802 )( Date 10/03/24 Discharge/Care Plan Counseled Regarding Diagnosis, Lab results, Medication changes, Prescriptions, Need for follow-up, When to return to ED Prescriptions Toradol, Medrol Dosepak (Auto) Prescriptions Current Visit Scripts KETOROLAC (TORADOL) 10 MG PO Q6H PRN PRN PAIN KETOROLAC (TORADOL) 10 MG PO Q6H PRN PRN PAIN #20 TABS methylPREDNISolone (MEDROL 4 MG DOSEPAK) 4 MG PO ASDIR methylPREDNISolone (MEDROL 4 MG DOSEPAK) 4 MG PO ASDIR #1 PACKET Prescriptions Reviewed Risks, Benefits, Alternative treatment Patient Instructions ED Hand Contusion Discharge Note I have spoken with the patient and/or caregivers. I have explained the patient's condition, diagnoses and treatment plan based on the information available to me at this time. I have answered the patient's and/or caregiver's questions and addressed any concerns. The patient and/or caregivers have as good an understanding of the patient's diagnosis, condition and treatment plan as can be expected at this point. The vital signs have been stable. The patient's condition is stable and appropriate for discharge from the emergency department. The patient will pursue further outpatient evaluation with the primary care physician or other designated or consulting physician as outlined in the discharge instructions. The patient and/or caregivers are agreeable to this plan of care and follow-up instructions have been explained in detail. The patient and/or caregivers have received these instructions in written format and have expressed an understanding of the discharge instructions. The patient and/or caregivers are aware that any significant change in condition or worsening of symptoms should prompt an immediate return to this or the closest emergency department or a call to 911. Extremity Inj Discharge Note The patient is discharged home with supportive care, a plan for pain control, and follow-up instructions that detail what to expect over the next 48 hours and what symptoms should prompt immediate return to the ED, including the symptoms of compartment syndrome. Follow-up instructions have been explained in detail to the patient, and the instructions have been provided in written format. The patient is comfortable with the plan of care and has expressed an understanding of the discharge instructions. The patient is aware that any significant change in condition or worsening of symptoms should prompt an immediate call to the primary or designated physician. If that is not successful the patient should call or return to this or the closest emergency department or call 911. at [address] [facility] #:[id number] END OF REPORT [facility] 2024-05-23 11:13:00 [facility] ([facility]) EMERGENCY PROVIDER REPORT REPORT#:[id number] REPORT STATUS: Signed DATE:05/23/24 TIME: 1113 PATIENT: JEAN MCHUGH UNIT #: [id number] ROOM/BED: AGE: 49 SEX: F PCP PHYS: Lizbeth Martinez MD SERVICE DT: AUTHOR: Mayito Syed MD * ALL edits or amendments must be made on the electronic/computer document * HPI-Rash/Abscess/Cellulitis Free Text HPI Notes Free Text HPI Notes 49-year-old female history of asthma presents with rash. Patient reports rash started on left buttock, she initially thought was a bite. Reports extension of the rash to left thigh and leg as well as right lower extremity. Patient has used topical hydrocortisone and Zyrtec with minimal relief. General Initial Greet Date/Time 05/23/24 1105 Presentation Chief Complaint Rash Review of Systems Focused Review of Systems Constitutional Denies: Fever. Skin Reports: Itching, Rash. Past Medical History - Adult Stated Complaint RASH Allergies Coded Allergies: iodine (RASH-HIVES 05/23/24) Home Medications Active Scripts POLYETHYLENE GLYCOL 3350 (MIRALAX) 17 GM PO DAILY POLYETHYLENE GLYCOL 3350 (MIRALAX) 17 GM PO DAILY #30 PACKET Prov: 05/20/24 methylPREDNISolone (MEDROL 4 MG DOSEPAK) 4 MG PO ASDIR methylPREDNISolone (MEDROL 4 MG DOSEPAK) 4 MG PO ASDIR #1 PACKET Prov: 05/24/21 Reported Medications CETIRIZINE (ZyrTEC) [BROMFED DM] 10 ML PO QID PRN COUGH Past Medical History: Reports: Asthma. Alcohol Use Denies EtOH use Smoking status for patients 13 years old or older: Never Smoker Physical Exam Vital Signs Vital Signs First Documented: Result Date Time Pulse Ox 99 05/23 1103 B/P 164/89 05/23 1103 B/P Mean 114 05/23 1103 O2 Delivery Room air 05/23 1103 Temp 36.9 05/23 1103 Pulse 94 05/23 1103 Resp 18 05/23 1103 Last Documented: Result Date Time Pulse Ox 99 05/23 1103 B/P 164/89 05/23 1103 B/P Mean 114 05/23 1103 O2 Delivery Room air 05/23 1103 Temp 36.9 05/23 1103 Pulse 94 05/23 1103 Resp 18 05/23 1103 Review of Vital Signs Reviewed Focused PE General/Const General/Const Awake, Alert, No acute distress Skin Text/Dict Notes Erythematous rash with small vesicles to left buttock, left thigh and left back crossing midline. No mucous membrane involvement. Re-Evaluation MDM Free Text MDM Notes Free Text MDM Notes 49-year-old female history of asthma presents with rash. Nonspecific rash. Not consistent with TN, SJS, shingles. Will give dose of steroids, discharged home with steroids, return precautions, PCP follow-up. ED Course Medication(s) Ordered Medication(s) Ordered: Hormones And Synthetic Substit Sig/Breanne Start time Last Medication Dose Route Stop Time Status Admin Prednisone 60 MG X1ED STA 05/23 1113 DC PO 05/23 1114 Patient Discharge Departure Vital Signs/Condition Vital Signs First Documented: Result Date Time Pulse Ox 99 05/23 1103 B/P 164/89 05/23 1103 B/P Mean 114 05/23 1103 O2 Delivery Room air 05/23 1103 Temp 36.9 05/23 1103 Pulse 94 05/23 1103 Resp 18 05/23 1103 Last Documented: Result Date Time Pulse Ox 99 05/23 1103 B/P 164/89 05/23 1103 B/P Mean 114 05/23 1103 O2 Delivery Room air 05/23 1103 Temp 36.9 05/23 1103 Pulse 94 05/23 1103 Resp 18 05/23 1103 All vital signs available at the time of this entry have been reviewed. Clinical Impression Clinical Impression Primary Impression: Rash and nonspecific skin eruption Disposition Decision Discharge )( Discharged to Home Yes )( Time 1114 )( Date 05/23/24 Discharge/Care Plan Counseled Regarding Diagnosis, Prescriptions, Need for follow-up, When to return to ED (Auto) Prescriptions Current Visit Scripts predniSONE 50 MG PO DAILY predniSONE 50 MG PO DAILY #5 TABS Patient Instructions ED Nonspecific Rash GCDV Referrals Provider Group: PRIMARY CARE Follow-Up: 1 Week Departure Forms [facility] PCP LIST Discharge Note I have spoken with the patient and/or caregivers. I have explained the patient's condition, diagnoses and treatment plan based on the information available to me at this time. I have answered the patient's and/or caregiver's questions and addressed any concerns. The patient and/or caregivers have as good an understanding of the patient's diagnosis, condition and treatment plan as can be expected at this point. The vital signs have been stable. The patient's condition is stable and appropriate for discharge from the emergency department. The patient will pursue further outpatient evaluation with the primary care physician or other designated or consulting physician as outlined in the discharge instructions. The patient and/or caregivers are agreeable to this plan of care and follow-up instructions have been explained in detail. The patient and/or caregivers have received these instructions in written format and have expressed an understanding of the discharge instructions. The patient and/or caregivers are aware that any significant change in condition or worsening of symptoms should prompt an immediate return to this or the closest emergency department or a call to 911. at 1126 RPT #:[id number] END OF REPORT [facility] 2024-05-20 16:24:00 [facility] EMERGENCY PROVIDER REPORT REPORT#:[id number] REPORT STATUS: Signed DATE:05/20/24 TIME: 1624 PATIENT: JEAN MCHUGH UNIT #: [id number] ROOM/BED: AGE: 49 SEX: F PCP PHYS: Lizbeth Martinez MD SERVICE AUTHOR: John Harden MD * ALL edits or amendments must be made on the electronic/computer document * HPI- Female Free Text HPI Notes Free Text HPI Notes Patient presents to emergency department for urinary frequency and suprapubic pain. Patient states this feels similar to UTIs she has had in the past. Patient has had symptoms for the past week and noting chills. No fever vomiting diarrhea chest pain shortness of breath. Patient has had no vaginal discharge or bleeding. Nothing makes symptoms better nothing makes symptoms worse. General Initial Greet Date/Time 05/20/241617 Presentation Chief Complaint Urinary frequency )( Sudden in Onset? Yes Risk- Female Risk Stratification Ectopic Risk factors reviewed Review of Systems ROS Statements All systems rev neg except as marked. Basic Review of Systems Basic ROS EYES: No redness, RESP: No SOB, CV: No chest pain, HEM: No bleeding/ bruising Focused Review of Systems Constitutional Denies: Chills, Fatigue, Fever, Malaise. Ears/Nose/Throat Denies: Ear drainage bilat, Ear ringing bilat, Earache bilat. GI Denies: Abdominal pain, Anorexia, Nausea, Vomiting. Female Reports: Urinary frequency, Urination increased. Denies: Dysuria, Flank pain, Hematuria. Neurologic Denies: Abnormal movement, Bladder dysfunction, Bowel dysfunction, Change LOC, Confusion, Dizziness, Focal weakness. Past Medical History - Adult Stated Complaint PAIN WITH URINATION Allergies Coded Allergies: No Known Allergies (05/20/24) Home Medications Active Scripts methylPREDNISolone (MEDROL 4 MG DOSEPAK) 4 MG PO ASDIR methylPREDNISolone (MEDROL 4 MG DOSEPAK) 4 MG PO ASDIR #1 PACKET Prov: 05/24/21 Reported Medications CETIRIZINE (ZyrTEC) [BROMFED DM] 10 ML PO QID PRN COUGH Alcohol Use Denies EtOH use Smoking status for patients 13 years old or older: Never Smoker Physical Exam Vital Signs Vital Signs First Documented: Result Date Time Pulse Ox 99 05/20 1618 B/P 153/92 05/20 1618 B/P Mean 112 05/20 1618 O2 Delivery Room air 05/20 1618 Temp 98.1 05/20 161 Pulse 98 05/20 1618 Resp 16 05/20 1618 Last Documented: Result Date Time Pulse Ox 99 05/20 1618 B/P 153/92 05/20 1618 B/P Mean 112 05/20 1618 O2 Delivery Room air 05/20 161 Temp 98.1 05/20 161 Pulse 98 05/20 1618 Resp 16 05/20 1618 Review of Vital Signs Reviewed Basic Physical Exam Basic PE GEN: Well appearing/NAD, HEAD: Atraumatic/NC, EYES: PERRL, conj clear, ENT: Membranes moist, NECK: Supple, RESP: No resp distress, CV: Reg rate rhythm, EXT: No gross abnormality, SKIN: No rashes, warm/dry, NEURO: alert oriented, NEURO: gross movement NL Focused PE General/Const General/Const Awake, Alert, No acute distress, Well appearing, Well developed Resp/Chest Respiratory/Chest Atraumatic, No respiratory distress, No retractions Cardiovascular Cardiovascular Heart rate NL, Regular rhythm, Cap refill not delayed Abdomen/GI Abdomen/GI Atraumatic, Soft Text/Dict Notes Tenderness to palpation lower abdomen and suprapubic area Genitourinary General Exam deferred Interpretation Diagnostics Lab Results Interpretation Results Laboratory Tests: 05/20 05/20 05/20 1708 1706 1629 Chemistry POC Sodium (134 - 147 mmol/L) 139 POC Potassium (3.6 - 5.2 mmol/L) 4.2 POC Chloride (100 - 108 mmol/L) 107 POC Total CO2 (24 - 30 mmol/L) 26 POC Anion Gap (0 - 20) 6 POC BUN (3 - 25 mg/dL) 11 POC Creatinine (0.5 - 1.5 mg/dL) 0.6 Est GFR (CKD-EPI 2020) (>or=60 mL/min) 111 POC Glucose (70 - 110 mg/dL) 99 POC Calcium (8.0 - 10.5 mg/dL) 9.8 POC Total Bilirubin (0.0 - 1.0 mg/dL) 0.6 POC AST (15 - 37 U/L) 23 POC ALT (30 - 65 U/L) 17 L POC Alk Phosphatase (20 - 125 U/L) 67 POC Total Protein (5.0 - 8.0 g/dL) 7.6 POC Albumin (3.5 - 5.0 g/dL) 3.5 Hematology POC WBC (3.5 - 11.0 10 3/uL) 5.5 POC RBC (3.43 - 5.21 10 6/uL) 4.24 POC Hgb (11.0 - 15.0 g/dL) 12.4 POC Hct (37.0 - 47.0 %) 36.8 L POC MCV (82.5 - 98.0 fL) 86.8 POC MCH (26.1 - 32.9 pg) 29.2 POC MCHC (30.7 - 34.9 g/dL) 33.7 POC RDW Coeff of Laura (11.8 - 16.4 %) 13.3 POC Platelet Count (136 - 388 10 3/uL) 307 POC MPV (7.9 - 13.3 fL) 9.5 POC Mixed Cells % (4.7 - 13.3 %) 7.2 POC Neut # (2.4 - 7.5 10 3/uL) 2.70 POC Lymph # (1.0 - 3.4 k/mm3) 2.40 POC [place] # (0.3 - 1.1 10 3/uL) 0.4 POC Lymphocytes % (13.9 - 44.4 %) 44.1 POC Neutrophils % (49.1 - 76.9 %) 48.7 L Urines POC Urine HCG, Qual (Negative) Negative 05/20 1625 Urines POC Urine Color (Yellow) Dark yellow A POC Urine Appearance (Clear) Slightly Cloudy A POC Urine pH (5.0 - 8.0) 6.0 POC Ur Specif [place] (1.001 - 1.035) >= 1.030 POC Urine Protein (Negative) Negative POC Ur Glucose (UA) (Negative) Negative POC Urine Ketones (Negative) Negative POC Urine Blood (Negative) Trace-intact A POC Urine Nitrite (Negative) Negative POC Urine Bilirubin (Negative) Negative POC Urine Urobilinogen (0.2 - 1.0 E.U/dL) 0.2 POC U Leukocyte Esteras (Negative) Negative Recent Impressions: CAT SCAN - CT ABD PELVIS W/CONT 05/20 1703 Report Impression - Status: SIGNED Entered: 05/20/2024 1434 IMPRESSION: Mild to moderate diffuse constipation without dilated or inflamed bowel loop. Otherwise negative CT abdomen and pelvis. Impression By: [email or web address] - Ken Alonso Martinez M.D. Re-Evaluation MDM Free Text MDM Notes Free Text MDM Notes Patient presents to emergency department with suprapubic abdominal pain. UA performed which showed no evidence of UTI. Patient went CT scan of abdomen pelvis which demonstrated constipation. Patient prescribed MiraLAX and advised to return to emergency department should symptoms change or worsen. Patient discharged in stable condition. ED Course Medication(s) Ordered Medication(s) Ordered: Diagnostic Agents Sig/Breanne Start time Last Medication Dose Route Stop Time Status Admin Iopamidol 95 ML .STK-MED ONE 05/20 1655 DC 05/20 IV 05/20 1656 1655 Differential Diagnosis Differential Diagnosis , missed, , spontaneous, Bartholin's abscess, Cystitis, acute, Dysfunct uterine bleeding, Endometritis, Fibroid uterus, Foreign body Patient Discharge Departure Vital Signs/Condition Vital Signs First Documented: Result Date Time Pulse Ox 99 05/20 1618 B/P 153/92 05/20 1618 B/P Mean 112 05/20 1618 O2 Delivery Room air 05/20 1618 Temp 98.1 05/20 1618 Pulse 98 05/20 1618 Resp 16 05/20 1618 Last Documented: Result Date Time Pulse Ox 99 05/20 1618 B/P 153/92 05/20 1618 B/P Mean 112 05/20 1618 O2 Delivery Room air 05/20 1618 Temp 98.1 05/20 1618 Pulse 98 05/20 1618 Resp 16 05/20 1618 All vital signs available at the time of this entry have been reviewed. Clinical Impression Clinical Impression Primary Impression: Abdominal pain Secondary Impressions: Constipation Disposition Decision Discharge )( Discharged to Home Yes )( Time 1732 )( Date 05/20/24 Discharge/Care Plan (Auto) Prescriptions Current Visit Scripts POLYETHYLENE GLYCOL 3350 (MIRALAX) 17 GM PO DAILY POLYETHYLENE GLYCOL 3350 (MIRALAX) 17 GM PO DAILY #30 PACKET Patient Instructions ED Constipation (Adult) Departure Forms [facility] PCP LIST at 1821 RPT #:[id number] END OF REPORT [facility] 2021-05-24 12:17:00 [facility] ([facility]) EMERGENCY PROVIDER REPORT REPORT#:[id number] REPORT STATUS: Signed DATE:05/24/21 TIME:1217 PATIENT: JEAN MCHUGH UNIT #: [id number] ROOM/BED: : 76 AGE: 46 SEX: F PCP PHYS: Lizbeth Martinez MD SERVICE AUTHOR: Sandy Rausch * ALL edits or amendments must be made on the electronic/computer document * HPI-URI/Cough/Cold General Initial Greet Date/Time 05/24/21 1117 Presentation Chief Complaint Nasal congestion Free Text HPI Notes Free Text HPI Notes 26-year-old female with past medical history of seasonal allergies and asthma currently taking Zyrtec-D, Flonase, montelukast, and Advair reports to ED with a 1 week history of nasal congestion, her ears feeling full, and feeling lightheaded. She also reports urinary urgency for the last several days. She denies cough, chest pain, shortness of breath, abdominal pain, nausea, vomiting, diarrhea, and fever. She is immunized against COVID-19. Review of Systems ROS Statements All systems rev neg except as marked. Past Medical History - Adult Stated Complaint LIGHT HEADED WITH DIZZINESS , EARS ARE STOP Allergies Coded Allergies: No Known Allergies (05/24/21) Home Medications Reported Medications CETIRIZINE (ZyrTEC) [BROMFED DM] 10 ML PO QID PRN COUGH Alcohol Use Denies EtOH use Smoking status: Smoking status for patients 13 years old or older: Never Smoker Physical Exam Vital Signs Vital Signs First Documented: Result Date Time Pulse Ox 99 05/24 1120 B/P 126/78 05/24 1120 B/P Mean 94 05/24 1120 O2 Delivery Room air 05/24 1120 Temp 36.4 05/24 1120 Pulse 78 05/24 1120 Resp 18 05/24 1120 Last Documented: Result Date Time Pulse Ox 99 05/24 1120 B/P 126/78 05/24 1120 B/P Mean 94 05/24 1120 O2 Delivery Room air 05/24 1120 Temp 36.4 05/24 1120 Pulse 78 05/24 1120 Resp 18 05/24 1120 Review of Vital Signs Reviewed Focused PE General/Const General/Const Awake, Alert, No acute distress, Well appearing, Well developed , Well hydrated, Well nourished, Cooperative, Not toxic appearing Eyes Eyes No periorbital redness, No periorbital swelling, No scleral icterus, Conjunctiva NL Ears/Nose/Throat Ears/Nose/Throat Airway patent, Mucous membranes moist, Pharynx NL, No peritonsillar abscess, No pooling of secretions, No trismus, Tympanic membs NL, No sinus tenderness, No facial swelling Text/Dict Notes Nasal congestion, no active drainage. MS Neck Neck Supple, No adenopathy, No swelling, Non-tender Resp/Chest Respiratory/Chest Breath sounds NL, Breath sounds = bilat, No respiratory distress, No rales, No rhonchi, No wheezing, No retractions Cardiovascular Cardiovascular Heart rate NL, Regular rhythm, Heart sounds NL, Peripheral circulation NL Skin Skin Color NL, Warm, Dry Neurologic Neurologic Oriented X3, Speech NL, No motor deficits, Gait NL Interpretation Diagnostics Lab Results Interpretation Results Laboratory Tests: 05/24 1215 Urines Urine Color (YEL/STRAW discript) YELLOW Urine Appearance (CLEAR discript) HAZY H Urine pH (5.0 - 7.0 pH UNITS) 7.0 Ur Specific [place] (1.005 - 1.030 SG) 1.015 Urine Protein (NEG mg/dL) NEGATIVE Urine Glucose (UA) (NEG mg/dL) NEGATIVE Urine Ketones (NEG mg/dL) NEGATIVE Urine Blood (NEG mg/DL) NEGATIVE Urine Nitrite (NEG SCREEN) NEGATIVE Urine Bilirubin (NEG mg/dL) NEGATIVE Urine Urobilinogen (<2.0 mg/dL) 0.2 Ur Leukocyte Esterase (NEGATIVE Leuk/mcL) NEGATIVE Urine Culture Screen (Culture CHK Criteria) NO, WBC<10 Lab Statement Laboratory studies reviewed and considered in the medical decision-making. Patient Discharge Departure Vital Signs/Condition Vital Signs First Documented: Result Date Time Pulse Ox 99 05/24 1120 B/P 126/78 05/24 1120 B/P Mean 94 05/24 1120 O2 Delivery Room air 05/24 1120 Temp 36.4 05/24 1120 Pulse 78 05/24 1120 Resp 18 05/24 1120 Last Documented: Result Date Time Pulse Ox 99 05/24 1120 B/P 126/78 05/24 1120 B/P Mean 94 05/24 1120 O2 Delivery Room air 05/24 1120 Temp 36.4 05/24 1120 Pulse 78 05/24 1120 Resp 18 05/24 1120 All vital signs available at the time of this entry have been reviewed. Condition Stable Clinical Impression Clinical Impression Primary Impression: Seasonal allergies Disposition Decision Discharge )( Discharged to Home Yes )( Time 1236 )( Date 05/24/21 Discharge/Care Plan Counseled Regarding Diagnosis, Lab results, Prescriptions, Need for follow-up, When to return to ED (Auto) Prescriptions Current Visit Scripts methylPREDNISolone (MEDROL 4 MG DOSEPAK) 4 MG PO ASDIR methylPREDNISolone (MEDROL 4 MG DOSEPAK) 4 MG PO ASDIR #1 PACKET Take as directed on package. Patient Instructions ED Seasonal Allergy Referrals Anthony Brar DO: 1-2 Days Or may follow up with your regular PCP, Dr. Martinez. Discharge Note I have spoken with the patient and/or caregivers. I have explained the patient's condition, diagnoses and treatment plan based on the information available to me at this time. I have answered the patient's and/or caregiver's questions and addressed any concerns. The patient and/or caregivers have as good an understanding of the patient's diagnosis, condition and treatment plan as can be expected at this point. The vital signs have been stable. The patient's condition is stable and appropriate for discharge from the emergency department. The patient will pursue further outpatient evaluation with the primary care physician or other designated or consulting physician as outlined in the discharge instructions. The patient and/or caregivers are agreeable to this plan of care and follow-up instructions have been explained in detail. The patient and/or caregivers have received these instructions in written format and have expressed an understanding of the discharge instructions. The patient and/or caregivers are aware that any significant change in condition or worsening of symptoms should prompt an immediate return to this or the closest emergency department or a call to 911. at 1239 RPT #: [id number] END OF REPORT [facility] 2021-05-24 12:17:00 [facility] ([facility]) EMERGENCY PROVIDER REPORT REPORT#:[id number] REPORT STATUS: Signed DATE:05/24/21 TIME:1216 PATIENT: JEAN MCHUGH UNIT #: [id number] ROOM/BED: : 76 AGE: 46 SEX: F PCP PHYS: Lizbeth Martinez MD SERVICE AUTHOR: Sandy Rausch * ALL edits or amendments must be made on the electronic/computer document * Sandy Rausch 05/24/21 1217: HPI-URI/Cough/Cold General Initial Greet Date/Time 05/24/21 1117 Presentation Chief Complaint Nasal congestion Free Text HPI Notes Free Text HPI Notes 26-year-old female with past medical history of seasonal allergies and asthma currently taking Zyrtec-D, Flonase, montelukast, and Advair reports to ED with a 1 week history of nasal congestion, her ears feeling full, and feeling lightheaded. She also reports urinary urgency for the last several days. She denies cough, chest pain, shortness of breath, abdominal pain, nausea, vomiting, diarrhea, and fever. She is immunized against COVID-19. Review of Systems ROS Statements All systems rev neg except as marked. Past Medical History - Adult Stated Complaint LIGHT HEADED WITH DIZZINESS , EARS ARE STOP Allergies Coded Allergies: No Known Allergies (05/24/21) Home Medications Reported Medications CETIRIZINE (ZyrTEC) [BROMFED DM] 10 ML PO QID PRN COUGH Alcohol Use Denies EtOH use Smoking status: Smoking status for patients 13 years old or older: Never Smoker Physical Exam Vital Signs Vital Signs First Documented: Result Date Time Pulse Ox 99 05/24 1120 B/P 126/78 05/24 1120 B/P Mean 94 05/24 1120 O2 Delivery Room air 05/24 1120 Temp 97.5 05/24 1120 Pulse 78 05/24 1120 Resp 18 05/24 1120 Last Documented: Result Date Time Pulse Ox 99 05/24 1120 B/P 126/78 05/24 1120 B/P Mean 94 05/24 1120 O2 Delivery Room air 05/24 1120 Temp 97.5 05/24 1120 Pulse 78 05/24 1120 Resp 18 05/24 1120 Review of Vital Signs Reviewed Focused PE General/Const General/Const Awake, Alert, No acute distress, Well appearing, Well developed , Well hydrated, Well nourished, Cooperative, Not toxic appearing Eyes Eyes No periorbital redness, No periorbital swelling, No scleral icterus, Conjunctiva NL Ears/Nose/Throat Ears/Nose/Throat Airway patent, Mucous membranes moist, Pharynx NL, No peritonsillar abscess, No pooling of secretions, No trismus, Tympanic membs NL, No sinus tenderness, No facial swelling Text/Dict Notes Nasal congestion, no active drainage. MS Neck Neck Supple, No adenopathy, No swelling, Non-tender Resp/Chest Respiratory/Chest Breath sounds NL, Breath sounds = bilat, No respiratory distress, No rales, No rhonchi, No wheezing, No retractions Cardiovascular Cardiovascular Heart rate NL, Regular rhythm, Heart sounds NL, Peripheral circulation NL Skin Skin Color NL, Warm, Dry Neurologic Neurologic Oriented X3, Speech NL, No motor deficits, Gait NL Interpretation Diagnostics Lab Results Interpretation Results Laboratory Tests: 05/24 1215 Urines Urine Color (YEL/STRAW discript) YELLOW Urine Appearance (CLEAR discript) HAZY H Urine pH (5.0 - 7.0 pH UNITS) 7.0 Ur Specific [place] (1.005 - 1.030 SG) 1.015 Urine Protein (NEG mg/dL) NEGATIVE Urine Glucose (UA) (NEG mg/dL) NEGATIVE Urine Ketones (NEG mg/dL) NEGATIVE Urine Blood (NEG mg/DL) NEGATIVE Urine Nitrite (NEG SCREEN) NEGATIVE Urine Bilirubin (NEG mg/dL) NEGATIVE Urine Urobilinogen (<2.0 mg/dL) 0.2 Ur Leukocyte Esterase (NEGATIVE Leuk/mcL) NEGATIVE Urine Culture Screen (Culture CHK Criteria) NO, WBC<10 Lab Statement Laboratory studies reviewed and considered in the medical decision-making. Patient Discharge Departure Vital Signs/Condition Vital Signs First Documented: Result Date Time Pulse Ox 99 05/24 1120 B/P 126/78 05/24 1120 B/P Mean 94 05/24 1120 O2 Delivery Room air 05/24 1120 Temp 97.5 05/24 1120 Pulse 78 05/24 1120 Resp 18 05/24 1120 Last Documented: Result Date Time Pulse Ox 99 05/24 1120 B/P 126/78 05/24 1120 B/P Mean 94 05/24 1120 O2 Delivery Room air 05/24 1120 Temp 97.5 05/24 1120 Pulse 78 05/24 1120 Resp 18 05/24 1120 All vital signs available at the time of this entry have been reviewed. Condition Stable Clinical Impression Clinical Impression Primary Impression: Seasonal allergies Disposition Decision Discharge )( Discharged to Home Yes )( Time 1236 )( Date 05/24/21 Discharge/Care Plan Counseled Regarding Diagnosis, Lab results, Prescriptions, Need for follow-up, When to return to ED (Auto) Prescriptions Current Visit Scripts methylPREDNISolone (MEDROL 4 MG DOSEPAK) 4 MG PO ASDIR methylPREDNISolone (MEDROL 4 MG DOSEPAK) 4 MG PO ASDIR #1 PACKET Take as directed on package. Patient Instructions ED Seasonal Allergy Referrals Anthony Brar DO: 1-2 Days Or may follow up with your regular PCP, Dr. Martinez. Discharge Note I have spoken with the patient and/or caregivers. I have explained the patient's condition, diagnoses and treatment plan based on the information available to me at this time. I have answered the patient's and/or caregiver's questions and addressed any concerns. The patient and/or caregivers have as good an understanding of the patient's diagnosis, condition and treatment plan as can be expected at this point. The vital signs have been stable. The patient's condition is stable and appropriate for discharge from the emergency department. The patient will pursue further outpatient evaluation with the primary care physician or other designated or consulting physician as outlined in the discharge instructions. The patient and/or caregivers are agreeable to this plan of care and follow-up instructions have been explained in detail. The patient and/or caregivers have received these instructions in written format and have expressed an understanding of the discharge instructions. The patient and/or caregivers are aware that any significant change in condition or worsening of symptoms should prompt an immediate return to this or the closest emergency department or a call to 911. Irene Mckoy. 05/24/21 1618: Patient Discharge Departure Supervising Physician Note RuthLv Saw Pt Alone I have reviewed the PA/CLIENT EXPERIENCE MANAGER's note and plan of care. I was available for consultation as needed at all times during the patient's visit in the emergency department. I agree with the clinical impression, plan and disposition. at 1239 at 1618 RPT #: [id number] END OF REPORT [facility] 2020-09-04 23:18:00 [facility] ([facility]) EMERGENCY PROVIDER REPORT REPORT#:[id number] REPORT STATUS: Signed DATE:09/04/20 TIME:2317 PATIENT: JEAN MCHUGH UNIT #: [id number] ROOM/BED: : 76 AGE: 45 SEX: F PCP PHYS: Lizbeth Martinez MD SERVICE AUTHOR: Irene Mckoy MD * ALL edits or amendments must be made on the electronic/computer document * HPI-Rash/Abscess/Cellulitis General Initial Greet Date/Time 09/04/202304 Presentation Chief Complaint Tender/swollen area Free Text HPI Notes Free Text HPI Notes 45yo AAF with PMH of asthma p/w left-sided neck mass x 3 days. Progressively worsening. Patient thinks symptoms may have started from ingrown hair. Pain rated 6 out of 10 on pain scale. No meds taken today. Associated with painful swallowing. Review of Systems ROS Statements All systems rev neg except as marked. Focused Review of Systems Constitutional Denies: Chills, Fever, Lethargy. Eyes Denies: Eye pain bilat, Redness bilat, Visual loss bilat. Ears/Nose/Throat Denies: Earache bilat, Nasal congestion, Sore throat. Respiratory Denies: Cough, non-productive, Cough, productive, Shortness of breath. Cardiovascular Denies: Chest pain, Syncope. GI Denies: Abdominal pain, Diarrhea, Nausea, Vomiting. Musculoskeletal Denies: Back pain, Extremity pain. Skin Reports: Abscess, Swelling. Allergy/Immun Denies: Hives, Itching. Past Medical History - Adult Stated Complaint BOIL Allergies Coded Allergies: iodine (Severe, THROAT CLOSING 08/14/19) Home Medications Reported Medications CETIRIZINE (ZyrTEC) [BROMFED DM] 10 ML PO QID PRN COUGH Calculated suicide risk level: No risk Smoking status for patients 13 years old or older: Never Smoker Physical Exam Vital Signs Vital Signs First Documented: Result Date Time Pulse Ox 100 09/04 2235 B/P 128/85 09/04 2235 B/P Mean 99 09/04 2235 O2 Delivery Room air 09/04 2235 Temp 96.9 09/04 2235 Pulse 96 09/04 2235 Resp 16 09/04 2235 Last Documented: Result Date Time Pulse Ox 100 09/04 2235 B/P 128/85 09/04 2235 B/P Mean 99 09/04 2235 O2 Delivery Room air 09/04 2235 Temp 96.9 09/04 2235 Pulse 96 09/04 2235 Resp 16 09/04 2235 Review of Vital Signs Reviewed, Vital signs normal Focused PE General/Const General/Const Awake, Alert, Well appearing Ears/Nose/Throat Ears/Nose/Throat Airway patent, Mucous membranes moist, Pharynx NL Resp/Chest Respiratory/Chest Breath sounds NL, Breath sounds = bilat, No respiratory distress, No rales, No rhonchi, No wheezing Cardiovascular Cardiovascular Heart rate NL, Regular rhythm, Heart sounds NL, Peripheral circulation NL MS Upper Extrem Upper Extremity/MS Inspection NL, No swelling, Non-tender, No erythema MS Lower Extrem Lower Ext/Pelvis/MS Inspection NL, No swelling, Non-tender, No erythema, Vascular intact, No edema Skin Skin Color NL, No rash, Warm, Dry, Intact, Turgor NL, No swelling Abscess #1 Location/Condition Small (5x3cm), Indurated, Tender. Neurologic Neurologic Oriented X3, Speech NL, No motor deficits, No sensory deficits Interpretation Diagnostics Lab Results Interpretation Results Laboratory Tests 09/04/202346: [Embedded Image Not Available] Laboratory Tests: 09/04 234 Chemistry Sodium (134 - 147 mmol/L) 139 Potassium (3.4 - 5.0 mmol/L) 3.4 Chloride (100 - 108 mmol/L) 106 Carbon Dioxide (21 - 32 mmol/L) 29 Anion Gap (4.0 - 15.0 GAP calc) 4.0 BUN (7 - 18 MG/DL) 11 Creatinine (0.6 - 1.0 MG/DL) 0.7 Glomerular Filtr Rate (>60 estGFR) >=60 max estimate Glucose (70 - 110 MG/DL) 87 Lactic Acid (0.4 - 2.0 mmol/L) 2.8 H Calcium (8.5 - 10.1 MG/DL) 8.8 Total Bilirubin (0.2 - 1.2 MG/DL) 0.20 AST (15 - 37 Unit/L) 8 L ALT (12 - 78 Unit/L) 11 L Total Alk Phosphatase (45 - 117 Unit/L) 82 Total Protein (6.4 - 8.2 G/DL) 8.0 Albumin (3.4 - 5.0 G/DL) 3.6 Globulin (GM/dL) 4.4 Albumin/Globulin Ratio (1.2 - 2.2 RATIO) 0.8 L Hematology WBC (3.5 - 11.0 K/mm3) 8.5 RBC (4.70 - 6.10 M/mm3) 3.96 L Hgb (10.4 - 14.9 G/DL) 11.1 Hct (31.5 - 44.1 %) 35.3 MCV (84.5 - 98.6 Fl) 89.1 MCH (27.0 - 34.2 pg) 28.0 MCHC (31.5 - 34.0 G/DL) 31.4 L RDW (11.5 - 14.5 SD) 13.1 Plt Count (150 - 450 K/mm3) 366 MPV (7.0 - 10.5 fL) 8.70 Neut % (Auto) (40 - 76 %) 59.5 Lymph % (Auto) (20.5 - 51.1 %) 28.5 [place] % (Auto) (1.7 - 9.3 %) 6.2 Eos % (Auto) (0.0 - 6.0 %) 5.2 Baso % (Auto) (0.0 - 2.0 %) 0.4 Neut # (Auto) (1.8 - 7.6 K/mm3) 5.1 Lymph # (Auto) (0.6 - 3.2 K/mm3) 2.4 [place] # (Auto) (0.3 - 1.1 K/mm3) 0.5 Eos # (Auto) (0.0 - 0.4 K/mm3) 0.4 Baso # (Auto) (0.0 - 0.1 K/mm3) 0.0 Abs Immat Gran (auto) (0.00 - 0.03 x10 3/uL) 0.02 Add Manual Diff (CRITERIA DIFF/SCN) NO Immature Gran % (0.0 - 5.0 %) 0.2 Nucleated RBC % (0.0 - 1.0 /100WBC%) 0.0 Miscellaneous Maternal Serum HCG (0 - 6 mi-IU/ML) < 1 Microbiology: Date/Time Procedure - Status Source Growth 09/04 2335 Blood Culture - RECD BLOOD 09/04 2325 Blood Culture - RECD BLOOD Recent Impressions: CAT SCAN - CT NECK W/O CONTRAST 09/05 43 Report Impression - Status: SIGNED Entered: 09/05/2020 0105 IMPRESSION: 1. Edema and fat stranding in the left lateral neck centered at the level of the thyroid cartilage is likely due to cellulitis. There is fascial thickening of the platysma muscle with thin nonorganized fluid deep to the muscle. No organized fluid collection is seen to suggest a drainable abscess. No retropharyngeal fluid collection. 2. No mass or adenopathy. Impression By: [email or web address] - Alonso Bernal M.D. Lab Imaging Statement Laboratory radiographic studies reviewed and considered in the medical decision-making. Re-Evaluation MDM Free Text MDM Notes Free Text MDM Notes A/P: 45yo AAF with PMH as above p/w left-sided neck mass 1. Labs 2. CT neck 3. IV antibiotics 4. Reassess ADDENDUM Time: 0130 Labs significant for elevated lactic acid (2.8), however patient does NOT meet SIRS criteria for sepsis diagnosis. CT neck consistent with cellulitis without evidence of abscess. Pt re-assessed; symptoms improved. Results of work-up d/w Pt; voiced understanding. Ok for DC home with PCP follow-up. Re-Evaluation/Progress Rash Adult MDM Note The patient is now resting comfortably and feels better, is alert, is not toxic, and is in no distress. The patient has a normal mental status and is neurologically intact. The rash does not have petechiae or purpura. There are no mucous membrane lesions, no signs of abscess, and no bullae. The patient appears well, has no fever, altered mental status or signs of systemic toxicity. The history, exam, diagnostic testing (if any) and current condition do not demonstrate signs of sepsis, [place] Spotted Fever, meningitis, meningococcemia, Lyme disease, toxic shock syndrome or other significant systemic illness requiring further treatment, testing or consultation in the emergency department. The vital signs have been stable. The patient's condition is stable and appropriate for discharge. The patient will pursue further outpatient evaluation with the primary care physician or other designated or consulting physician as indicated in the discharge instructions. ED Course Medication(s) Ordered Medication(s) Ordered: Anti-Infective Agents Sig/Breanne Start time Last Medication Dose Route Stop Time Status Admin Ceftriaxone Sodium 1,000 MG X1ED STA 09/04 2317 AC 09/04 Sodium Chloride 100 ML IV 09/09 Vancomycin HCl 1,000 MG X1ED STA 09/04 2317 DC 09/04 Sodium Chloride 250 ML IV 09/05 0046 2337 Patient Discharge Departure Vital Signs/Condition Vital Signs First Documented: Result Date Time Pulse Ox 100 09/04 2235 B/P 128/85 09/04 2235 B/P Mean 99 09/04 2235 O2 Delivery Room air 09/04 2235 Temp 96.9 09/04 2235 Pulse 96 09/04 2235 Resp 16 09/04 2235 Last Documented: Result Date Time Pulse Ox 100 09/04 2235 B/P 128/85 09/04 2235 B/P Mean 99 09/04 2235 O2 Delivery Room air 09/04 2235 Temp 96.9 09/04 2235 Pulse 96 09/04 2235 Resp 16 09/04 2235 All vital signs available at the time of this entry have been reviewed. Clinical Impression Clinical Impression Primary Impression: Cellulitis of neck Secondary Impressions: Mass of left side of neck Ruled Out Impressions: Cutaneous abscess of neck, Sepsis Disposition Decision Discharge )( Discharged to Home Yes )( Time 0128 )( Date 09/05/20 Discharge/Care Plan Counseled Regarding Diagnosis, Lab results, Imaging studies, Need for follow-up, When to return to ED Referrals Lizbeth Martinez MD (PCP/Family) Discharge Note I have spoken with the patient and/or caregivers. I have explained the patient's condition, diagnoses and treatment plan based on the information available to me at this time. I have answered the patient's and/or caregiver's questions and addressed any concerns. The patient and/or caregivers have as good an understanding of the patient's diagnosis, condition and treatment plan as can be expected at this point. The vital signs have been stable. The patient's condition is stable and appropriate for discharge from the emergency department. The patient will pursue further outpatient evaluation with the primary care physician or other designated or consulting physician as outlined in the discharge instructions. The patient and/or caregivers are agreeable to this plan of care and follow-up instructions have been explained in detail. The patient and/or caregivers have received these instructions in written format and have expressed an understanding of the discharge instructions. The patient and/or caregivers are aware that any significant change in condition or worsening of symptoms should prompt an immediate return to this or the closest emergency department or a call to 911. at [address] [facility] #: [phone] END OF REPORT [facility] 2019-08-14 20:17:00 [facility] ([facility]) EMERGENCY PROVIDER REPORT REPORT#:[id number] REPORT STATUS: Signed DATE:08/14/19 TIME:2016 PATIENT: JEAN MCHUGH UNIT #: [id number] ROOM/BED: : 76 AGE: 44 SEX: F PCP PHYS: Lizbeth Martinez MD SERVICE AUTHOR: Sol Downey I CLIENT EXPERIENCE MANAGER * ALL edits or amendments must be made on the electronic/computer document * HPI- Female General Confirmed Patient Yes Patient Type New patient Initial Greet Date/Time 08/14/191999 Presentation Chief Complaint Dysuria Hx Obtained From Patient )( Sudden in Onset? No Onset Occurred Days ago (6) Symptom Duration Waxes and wanes Progression since Onset Intermittent Context of Onset urination Caused by No trauma by history Location Suprapubic Quality Pressure Radiation No: Does not radiate. Severity: Current No pain currently Associated with Denies: Abdominal pain, Abrasion, Anorexia, Chills, Constipation, Fever, Hematemesis, Laceration, Nausea, Rash, UTI symptoms, Vomiting. Associated Other Pt denies other symptoms Exacerbated by Urination Relieved by Nothing Free Text HPI Notes Free Text HPI Notes 44 yo female with no known PMH Presents to ED with c/o intermittent burning during urination for the past 2 days. Reports symptoms occur only during urination. Denies any fever, chills, nausea, vomiting, hematuria, abd pain, or diarrhea. Patient also reported for the past few weeks she develops dizzy spells when she gets out of bed in the morning or getting out of her desk. Denies any dizzy spells today, chest pain, SOB, diaphoresis, numbness tingling, or focal weakness. Risk- Female Risk Stratification Ectopic Risk factors reviewed, No risk factors Review of Systems ROS Statements All systems rev neg except as marked. Complete sys rev neg except as marked. Focused Review of Systems Constitutional Denies: Chills, Fever, Lethargy. Ears/Nose/Throat Denies: Earache bilat, Nasal congestion, Sore throat. GI Denies: Abdominal pain, Vomiting. Female Reports: Dysuria, Urinary frequency, Urinary urgency. Denies: Flank pain, Hematuria, , Urination decreased, Urination increased, Vaginal bleeding - abnl, Vaginal discharge. Skin Denies: Diaphoresis, Rash. Neurologic Denies: Change LOC, Dizziness, Focal weakness, Headache, Numbness, Slurred speech. Past Medical History - Adult Stated Complaint DIZZY Allergies Coded Allergies: iodine (Severe, THROAT CLOSING 08/14/19) Home Medications Reported Medications CETIRIZINE (ZyrTEC) [BROMFED DM] 10 ML PO QID PRN COUGH Review of Nursing Notes Rev avail, and agree (traige only) Pt reports no significant: Past medical history, Past surgical history, Family history, Social history Smoking status for patients 13 years old or older: Never Smoker Physical Exam Vital Signs Vital Signs First Documented: Result Date Time Pulse Ox 100 08/14 1804 B/P 130/65 08/14 1804 B/P Mean 86 08/14 1804 O2 Delivery Room air 08/14 180 Temp 98.6 08/14 180 Pulse 92 08/14 180 Resp 18 08/14 1804 Last Documented: Result Date Time Pulse Ox 100 08/14 1804 B/P 130/65 08/14 1804 B/P Mean 86 08/14 1804 O2 Delivery Room air 08/14 180 Temp 98.6 08/14 180 Pulse 92 08/14 1804 Resp 18 08/14 1804 Review of Vital Signs Reviewed Focused PE General/Const General/Const Awake, Alert, No acute distress, Well appearing, Well developed , Well hydrated, Well nourished, Cooperative, Not toxic appearing Resp/Chest Respiratory/Chest Atraumatic, Breath sounds NL, Breath sounds = bilat, No respiratory distress, No rales, No rhonchi, No wheezing, No retractions, No stridor, No chest tenderness, No chest wall deformity, No crepitus Cardiovascular Cardiovascular Heart rate NL, Regular rhythm, Heart sounds NL, No murmurs, Cap refill not delayed, Peripheral circulation NL, Pulses = bilaterally Abdomen/GI Abdomen/GI Atraumatic, Soft, McBurney's non-tender, No guarding, No rebound, BS normoactive, No distention Tenderness/Guarding/Rebound Tender suprapubic. MS Back Back Inspection NL, Non-tender, No CVA tenderness Skin Skin Color NL, No rash, Warm, Dry, Turgor NL Genitourinary General Exam deferred Additional PE MS Head Head Atraumatic, Normocephalic Eyes Eyes No periorbital redness, No periorbital swelling, Conjunctiva NL Ears/Nose/Throat Ears/Nose/Throat Atraumatic, Airway patent, Mucous membranes moist MS Neck Neck Atraumatic, Supple, No meningismus, Full range of motion, No carotid bruit Neurologic Neurologic Oriented X3, Speech NL, No motor deficits, No sensory deficits, CN II - XII intact, Reflexes equal bilat, Cerebellar NL, Memory NL, Gait NL Psychiatric Psychiatric Affect NL, Mood NL Interpretation Diagnostics Lab Results Interpretation Results Laboratory Tests: 08/14 2016 Urines Urine Color (YEL/STRAW discript) YELLOW Urine Appearance (CLEAR discript) CLEAR Urine pH (5.0 - 7.0 pH UNITS) 7.0 Ur Specific [place] (1.005 - 1.030 SG) 1.015 Urine Protein (NEG mg/dL) TRACE H Urine Glucose (UA) (NEG mg/dL) NEGATIVE Urine Ketones (NEG mg/dL) NEGATIVE Urine Blood (NEG mg/DL) NEGATIVE Urine Nitrite (NEG SCREEN) NEGATIVE Urine Bilirubin (NEG mg/dL) NEGATIVE Urine Urobilinogen (<2.0 mg/dL) 4.0 H Ur Leukocyte Esterase (NEGATIVE Leuk/mcL) NEGATIVE Urine Culture Screen (Culture CHK Criteria) NO, WBC<10 Urine HCG, Qual (NEGATIVE) NEGATIVE Lab Statement Laboratory studies reviewed and considered in the medical decision-making. Point of Care Testing Pulse Oximetry Pulse Ox % 100 On: Room air Interpretation Interpreted by me, Pulse oximetry normal Re-Evaluation MDM Free Text MDM Notes Additional Text Patient denies any discomfort at this time. VSS. Will discharge and have patient follow up with PCP. Return precautions given. Patient Discharge Departure Vital Signs/Condition Vital Signs First Documented: Result Date Time Pulse Ox 100 08/14 180 B/P 130/65 08/14 1804 B/P Mean 86 08/14 180 O2 Delivery Room air 08/14 1804 Temp 98.6 08/14 180 Pulse 92 08/14 180 Resp 18 08/14 1804 Last Documented: Result Date Time Pulse Ox 100 08/14 1804 B/P 130/65 08/14 1804 B/P Mean 86 08/14 180 O2 Delivery Room air 08/14 1804 Temp 98.6 08/14 1804 Pulse 92 08/14 1804 Resp 18 08/14 1804 All vital signs available at the time of this entry have been reviewed. Condition Stable Clinical Impression Clinical Impression Primary Impression: Dysuria Disposition Decision Discharge )( Discharged to Home Yes )( Time 2038 )( Date 08/14/19 Discharge/Care Plan Counseled Regarding Diagnosis, Lab results, Need for follow-up, When to return to ED Prescriptions pyridium Prescriptions Reviewed Risks, Benefits, Alternative treatment Discharge Note I have spoken with the patient and/or caregivers. I have explained the patient's condition, diagnoses and treatment plan based on the information available to me at this time. I have answered the patient's and/or caregiver's questions and addressed any concerns. The patient and/or caregivers have as good an understanding of the patient's diagnosis, condition and treatment plan as can be expected at this point. The vital signs have been stable. The patient's condition is stable and appropriate for discharge from the emergency department. The patient will pursue further outpatient evaluation with the primary care physician or other designated or consulting physician as outlined in the discharge instructions. The patient and/or caregivers are agreeable to this plan of care and follow-up instructions have been explained in detail. The patient and/or caregivers have received these instructions in written format and have expressed an understanding of the discharge instructions. The patient and/or caregivers are aware that any significant change in condition or worsening of symptoms should prompt an immediate return to this or the closest emergency department or a call to 911. at [phone] RPT #: [id number] END OF REPORT [facility] 2019-08-14 20:17:00 [facility] ([facility]) EMERGENCY PROVIDER REPORT REPORT#:[id number] REPORT STATUS: Signed DATE:08/14/19 TIME:2016 PATIENT: JEAN MCHUGH UNIT #: [id number] ROOM/BED: : 76 AGE: 44 SEX: F PCP PHYS: Lizbeth Martinez MD SERVICE AUTHOR: Sol Downey NP * ALL edits or amendments must be made on the electronic/computer document * Sol Downey 08/14/19 2017: HPI- Female General Confirmed Patient Yes Patient Type New patient Presentation Chief Complaint Dysuria Hx Obtained From Patient )( Sudden in Onset? No Onset Occurred Days ago (6) Symptom Duration Waxes and wanes Progression since Onset Intermittent Context of Onset urination Caused by No trauma by history Location Suprapubic Quality Pressure Radiation No: Does not radiate. Severity: Current No pain currently Associated with Denies: Abdominal pain, Abrasion, Anorexia, Chills, Constipation, Fever, Hematemesis, Laceration, Nausea, Rash, UTI symptoms, Vomiting. Associated Other Pt denies other symptoms Exacerbated by Urination Relieved by Nothing Free Text HPI Notes Free Text HPI Notes 44 yo female with no known PMH Presents to ED with c/o intermittent burning during urination for the past 2 days. Reports symptoms occur only during urination. Denies any fever, chills, nausea, vomiting, hematuria, abd pain, or diarrhea. Patient also reported for the past few weeks she develops dizzy spells when she gets out of bed in the morning or getting out of her desk. Denies any dizzy spells today, chest pain, SOB, diaphoresis, numbness tingling, or focal weakness. Risk- Female Risk Stratification Ectopic Risk factors reviewed, No risk factors Review of Systems ROS Statements All systems rev neg except as marked. Complete sys rev neg except as marked. Focused Review of Systems Constitutional Denies: Chills, Fever, Lethargy. Ears/Nose/Throat Denies: Earache bilat, Nasal congestion, Sore throat. GI Denies: Abdominal pain, Vomiting. Female Reports: Dysuria, Urinary frequency, Urinary urgency. Denies: Flank pain, Hematuria, , Urination decreased, Urination increased, Vaginal bleeding - abnl, Vaginal discharge. Skin Denies: Diaphoresis, Rash. Neurologic Denies: Change LOC, Dizziness, Focal weakness, Headache, Numbness, Slurred speech. Past Medical History - Adult Stated Complaint DIZZY Allergies Coded Allergies: iodine (Severe, THROAT CLOSING 08/14/19) Home Medications Reported Medications CETIRIZINE (ZyrTEC) [BROMFED DM] 10 ML PO QID PRN COUGH Review of Nursing Notes Rev avail, and agree (traige only) Pt reports no significant: Past medical history, Past surgical history, Family history, Social history Smoking status for patients 13 years old or older: Never Smoker Physical Exam Vital Signs Vital Signs First Documented: Result Date Time Pulse Ox 100 08/14 1804 B/P 130/65 08/14 1804 B/P Mean 86 08/14 1804 O2 Delivery Room air 08/14 1804 Temp 37.0 08/14 1804 Pulse 92 08/14 1804 Resp 18 08/14 1804 Last Documented: Result Date Time Pulse Ox 96 08/14 2047 B/P 126/90 08/14 2047 B/P Mean 102 08/14 2047 O2 Delivery Room air 08/14 2047 Temp 36.9 08/14 2047 Pulse 79 08/14 2047 Resp 16 08/14 2047 Review of Vital Signs Reviewed Focused PE General/Const General/Const Awake, Alert, No acute distress, Well appearing, Well developed , Well hydrated, Well nourished, Cooperative, Not toxic appearing Resp/Chest Respiratory/Chest Atraumatic, Breath sounds NL, Breath sounds = bilat, No respiratory distress, No rales, No rhonchi, No wheezing, No retractions, No stridor, No chest tenderness, No chest wall deformity, No crepitus Cardiovascular Cardiovascular Heart rate NL, Regular rhythm, Heart sounds NL, No murmurs, Cap refill not delayed, Peripheral circulation NL, Pulses = bilaterally Abdomen/GI Abdomen/GI Atraumatic, Soft, McBurney's non-tender, No guarding, No rebound, BS normoactive, No distention Tenderness/Guarding/Rebound Tender suprapubic. MS Back Back Inspection NL, Non-tender, No CVA tenderness Skin Skin Color NL, No rash, Warm, Dry, Turgor NL Genitourinary General Exam deferred Additional PE MS Head Head Atraumatic, Normocephalic Eyes Eyes No periorbital redness, No periorbital swelling, Conjunctiva NL Ears/Nose/Throat Ears/Nose/Throat Atraumatic, Airway patent, Mucous membranes moist MS Neck Neck Atraumatic, Supple, No meningismus, Full range of motion, No carotid bruit Neurologic Neurologic Oriented X3, Speech NL, No motor deficits, No sensory deficits, CN II - XII intact, Reflexes equal bilat, Cerebellar NL, Memory NL, Gait NL Psychiatric Psychiatric Affect NL, Mood NL Interpretation Diagnostics Lab Results Interpretation Results Laboratory Tests: 08/14 2016 Urines Urine Color (YEL/STRAW discript) YELLOW Urine Appearance (CLEAR discript) CLEAR Urine pH (5.0 - 7.0 pH UNITS) 7.0 Ur Specific [place] (1.005 - 1.030 SG) 1.015 Urine Protein (NEG mg/dL) TRACE H Urine Glucose (UA) (NEG mg/dL) NEGATIVE Urine Ketones (NEG mg/dL) NEGATIVE Urine Blood (NEG mg/DL) NEGATIVE Urine Nitrite (NEG SCREEN) NEGATIVE Urine Bilirubin (NEG mg/dL) NEGATIVE Urine Urobilinogen (<2.0 mg/dL) 4.0 H Ur Leukocyte Esterase (NEGATIVE Leuk/mcL) NEGATIVE Urine Culture Screen (Culture CHK Criteria) NO, WBC<10 Urine HCG, Qual (NEGATIVE) NEGATIVE Lab Statement Laboratory studies reviewed and considered in the medical decision-making. Point of Care Testing Pulse Oximetry Pulse Ox % 100 On: Room air Interpretation Interpreted by me, Pulse oximetry normal Re-Evaluation MDM Free Text MDM Notes Additional Text Patient denies any discomfort at this time. VSS. Will discharge and have patient follow up with PCP. Return precautions given. Patient Discharge Departure Vital Signs/Condition Vital Signs First Documented: Result Date Time Pulse Ox 100 08/14 1804 B/P 130/65 08/14 1804 B/P Mean 86 08/14 1804 O2 Delivery Room air 08/14 1804 Temp 37.0 08/14 1804 Pulse 92 08/14 1804 Resp 18 08/14 1804 Last Documented: Result Date Time Pulse Ox 96 08/14 2047 B/P 126/90 08/14 2047 B/P Mean 102 08/14 2047 O2 Delivery Room air 08/14 2047 Temp 36.9 08/14 2047 Pulse 79 08/14 2047 Resp 16 08/14 2047 All vital signs available at the time of this entry have been reviewed. Condition Stable Clinical Impression Clinical Impression Primary Impression: Dysuria Disposition Decision Discharge )( Discharged to Home Yes )( Time 2038 )( Date 08/14/19 Discharge/Care Plan Counseled Regarding Diagnosis, Lab results, Need for follow-up, When to return to ED Prescriptions pyridium Prescriptions Reviewed Risks, Benefits, Alternative treatment Discharge Note I have spoken with the patient and/or caregivers. I have explained the patient's condition, diagnoses and treatment plan based on the information available to me at this time. I have answered the patient's and/or caregiver's questions and addressed any concerns. The patient and/or caregivers have as good an understanding of the patient's diagnosis, condition and treatment plan as can be expected at this point. The vital signs have been stable. The patient's condition is stable and appropriate for discharge from the emergency department. The patient will pursue further outpatient evaluation with the primary care physician or other designated or consulting physician as outlined in the discharge instructions. The patient and/or caregivers are agreeable to this plan of care and follow-up instructions have been explained in detail. The patient and/or caregivers have received these instructions in written format and have expressed an understanding of the discharge instructions. The patient and/or caregivers are aware that any significant change in condition or worsening of symptoms should prompt an immediate return to this or the closest emergency department or a call to 911. Arturo Spears 08/15/19 0415: HPI- Female General Initial Greet Date/Time 08/14/191999 Patient Discharge Departure Supervising Physician Note MidLv Saw Pt Alone I have reviewed the PA/CLIENT EXPERIENCE MANAGER's note and plan of care. I was available for consultation as needed at all times during the patient's visit in the emergency department. I agree with the clinical impression, plan and disposition. at 2051 at 0416 RPT #: [id number] END OF REPORT [facility]"
--- NOTE | 2025-08-01 08:05 | EDPHYS ---
Physician Documentation [facility] Name: Alix Villasenor Age: 50 yrs Sex: Female : 1975 Arrival Date: 08/01/2025 Time: 07:37 Bed 8 Private MD: ED Physician Ezio Crain HPI: 08/01 08:01 This 50 yrs old Black Female presents to ER via Ambulatory with complaints of bump on rn bikini line. 08:01 Patient reports 2 weeks of rash along bikini line/inguinal region bilaterally. Reports rn pain and itching. Seen by PCP and prescribed oral antibiotics and topical cream and not helping. No fever or chills. No single area described as an abscess or focal drainage.. Historical: - Allergies: 08:01 Iodine; bp - PMHx: 08:01 abdominal hernia; allergies; Asthma; peptic ulcer; bp - Immunization history:: Adult Immunizations. - Infectious Disease History:: Denies. - Social history:: Smoking status: unknown. - Family history:: not pertinent. - Hospitalizations: : No recent hospitalization is reported. ROS: 08:01 Constitutional: Negative for fever, chills, and weight loss, Skin: Positive for rash rn and itching to inguinal region Exam: 08:01 Constitutional: This is a well developed, well nourished patient who is awake, alert, rn and in no acute distress. Skin: Bilateral inguinal region with flat rash with excoriations, no abscess, no cellulitis, appears fungal. Vital Signs: 07:59 BP 157 / 96; Pulse 88; Resp 16; Temp 97.9; Pulse Ox 100% ; bp MDM: 07:44 Medical Screening Exam initiated rn 08:01 Differential Diagnosis Fungal rash. Data reviewed: vital signs, nurses notes, and as a rn result, I will discharge patient. Counseling: I had a detailed discussion with the patient and/or guardian regarding the historical points, exam findings, and any diagnostic results supporting the discharge/admit diagnosis, the need for outpatient follow up, to return to the emergency department if symptoms worsen or persist or if there are any questions or concerns that arise at home. Special discussion: I discussed with the patient/guardian in detail that at this point there is no indication for admission to the hospital. It is understood, however, that if the symptoms persist or worsen the patient needs to return immediately for re-evaluation. Based on the history and exam findings, there is no indication for further emergent testing or inpatient evaluation. I discussed with the patient/guardian the need to see the primary care provider for further evaluation of the symptoms. 08:01 ED course: Rash not improving with antibiotics, appears more fungal to me, will rn prescribe fluconazole orally and recommend miconazole topically that she can get [id number]. Also recommended powder form for ease of application.. Administered Medications: No medications were administered Disposition Summary: 08/01/25 08:04 Discharge Ordered Notes: Location: Home rn Problem: an ongoing problem rn Symptoms: are unchanged rn Condition: Stable rn Diagnosis - Tinea cruris rn Followup: rn - With: Private Physician - When: As needed - Reason: Recheck today's complaints, Re-evaluation by your physician Discharge Instructions: - Discharge Summary Sheet rn - Rash, Adult rn - Jock Itch rn Forms: - Medication Reconciliation Form rn - Antibiotic commander internal affairs - Prescription Opioid Use rn - Patient Portal Instructions rn - Leadership Thank You Letter rn Prescriptions: - Diflucan 100 mg Oral tablet - take 2 tablets ORAL route Day 1 for 1 day - then take one tablet by oral route rn every day for 7 days.; 9 tablet; Refills: 0, Product Selection Permitted Signatures: Ezio Crain MD MD rn Peltier, Brian RN RN bp
--- NOTE | 2025-08-01 08:05 | ER ---
Nurse's Notes [facility] Name: Alix Villasenor Age: 50 yrs Sex: Female : 1975 Arrival Date: 08/01/2025 Time: 07:37 Bed 8 Private MD: Diagnosis: Tinea cruris Presentation: 08/01 07:59 Chief complaint: Patient states: "BUMPS" ON BIKINI LINE AFTER SHAVING x 3 WK. NO RELIEF bp WITH ABX OINTMENT. Coronavirus screen: At this time, the client does not indicate any symptoms associated with coronavirus-19. Ebola Screen: No symptoms or risks identified at this time. Initial Sepsis Screen: Does the patient meet any 2 criteria? No. Patient's initial sepsis screen is negative. Does the patient have a suspected source of infection? No. Patient's initial sepsis screen is negative. Risk Assessment: Do you want to hurt yourself or someone else? Patient reports no desire to harm self or others. Onset of symptoms is unknown. 07:59 Method Of Arrival: Ambulatory bp 07:59 Acuity: DENNY 4 bp Triage Assessment: 08:01 General: Appears in no apparent distress. Behavior is calm, cooperative, appropriate bp for age. Pain: Denies pain. EENT: No deficits noted. Neuro: No deficits noted. Cardiovascular: No deficits noted. Respiratory: No deficits noted. GI: No signs and/or symptoms were reported involving the gastrointestinal system. : No signs and/or symptoms were reported regarding the genitourinary system. Derm: Reports itching. Musculoskeletal: No deficits noted. Historical: - Allergies: 08:01 Iodine; bp - PMHx: 08:01 abdominal hernia; allergies; Asthma; peptic ulcer; bp - Immunization history:: Adult Immunizations. - Infectious Disease History:: Denies. - Social history:: Smoking status: unknown. - Family history:: not pertinent. - Hospitalizations: : No recent hospitalization is reported. Screenin:05 [facility] ED Fall Risk Assessment (Adult) History of falling in the last 3 months, aa5 including since admission No falls in past 3 months (0 pts) Confusion or Disorientation No (0 pts) Intoxicated or Sedated No (0 pts) Impaired Gait No (0 pts) Mobility Assist Device Used No (0 pt) Altered Elimination No (0 pt) Score/Fall Risk Level 0 - 2 = Low Risk Oriented to surroundings, Maintained a safe environment, Educated pt \\T\\ family on fall prevention, incl call for assistance when getting out of bed, Assessed \\T\\ reinforced patient's understanding of fall precautions. Abuse screen: Denies threats or abuse. Nutritional screening: No deficits noted. Tuberculosis screening: No symptoms or risk factors identified. Assessment: 08:05 General: Appears comfortable, Behavior is calm, cooperative. Pain: Denies pain. Neuro: aa5 Level of Consciousness is awake, alert, obeys commands, Oriented to person, place, time, situation. Cardiovascular: Patient's skin is warm and dry. Respiratory: Airway is patent Respiratory effort is even, unlabored, Respiratory pattern is regular, symmetrical. GI: No signs and/or symptoms were reported involving the gastrointestinal system. : No signs and/or symptoms were reported regarding the genitourinary system. EENT: No signs and/or symptoms were reported regarding the EENT system. Derm: Skin is dry, Skin is normal, Skin temperature is warm Reports itching to bilateral groin area with razor bumps. Musculoskeletal: Range of motion: intact in all extremities. 08:12 Neuro: Level of Consciousness is awake, alert, obeys commands, Oriented to person, aa5 place, time, situation. Respiratory: Airway is patent Respiratory effort is even, unlabored, Respiratory pattern is regular, symmetrical. Derm: Skin is dry, Skin is normal, Skin temperature is warm. Vital Signs: 07:59 BP 157 / 96; Pulse 88; Resp 16; Temp 97.9; Pulse Ox 100% ; bp ED Course: 07:40 Patient arrived in ED. im 07:43 Ezio Crain MD is Attending Physician. rn 08:00 Triage completed. bp 08:01 Arm band placed on. bp 08:05 Rose Almonte, URBAN is Primary Nurse. aa5 08:05 Patient has correct armband on for positive identification. Placed in gown. Bed in low aa5 position. Call light in reach. Side rails up X 1. 08:12 No provider procedures requiring assistance completed. Patient did not have IV access aa5 during this emergency room visit. Administered Medications: No medications were administered Medication: 08:05 VIS not applicable for this client. aa5 Outcome: 08:04 Discharge ordered by . rn 08:12 Discharged to home ambulatory, aaSrinivasa 08:12 Condition: stable 08:12 Discharge instructions given to patient, Instructed on discharge instructions, follow up and referral plans. medication usage, Demonstrated understanding of instructions, follow-up care, medications, Prescriptions given X 1, 08:13 Patient left the ED. rn Signatures: Ezio Crain MD MD rn Calderon, Audri, URBAN DUGGAN aa5 Mert Moser RN RN bp Mendoza, Itzel
[2025-08-01 08:17] VITALS: BP 157/96; TEMP 97.9; O2SAT 100
== END 2025-08-01 08:13 | disposition home or self-care (01) ==
LOC: ER 07:37
DX: B35.6 Tinea cruris (principal)
CPT/HCPCS: 99283